=== PATIENT | female | born 1965 | race Asian ===

== ENCOUNTER 2024-04-01 19:11 | Emergency (ER) | payer MEDICAID, SELFPAY ==
[2024-04-01 19:12] VITALS: BMI 24.0
--- NOTE | 2024-04-01 19:15 | EKG_ITS ---
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
--- NOTE | 2024-04-01 19:29 | XR_ITS ---
Examination: PA lateral chest 2 views TECHNIQUE: Upright PA lateral chest 2 views Exam date and time: April 01, 2024 1949 hours INDICATIONS: Onset chest pain today. FINDINGS: Significant right middle lobe pneumonia No significant cardiac enlargement. Left lung clear IMPRESSION: Significant right middle lobe pneumonia
--- NOTE | 2024-04-01 19:29 | PD.EDRME ---
Rapid Medical Screening Exam E Arrival date/time: 04/01/24 19:11 58-year-old female with no known medical history presents to the emergency room with a chief complaint of 8 out of 10 sternal chest pain x 1 day. Patient states she was sent over by her primary care provider to rule out a heart attack. I have greeted and performed a focused initial assessment of this patient. A comprehensive ED assessment and evaluation of the patient, analysis of all test results, and completion of the medical decision making process will be conducted by additional ED providers. Chief Complaint: General Adult/Misc Complain Vital signs reviewed by provider: Yes
[2024-04-01 19:33] VITALS: BP 129/69; PULSE 86; RESP 18; TEMP 37.2; O2SAT 98
[2024-04-01 20:49] LABS: Basophils % (Auto) 1 % (0-2.5); Eosinophils # (Auto) 0.1 Thou/mm3 (0.0-0.5); Eosinophils % (Auto) 1 % (0-10); Hematocrit 28.4 % (36.0-46.0); Hemoglobin 9.3 g/dL (12.0-16.0); Immature Granulocytes % (Auto) 1 % (0-0); Immature Granulocytes Auto 0.05 Thou/mm3 (0.00-0.00); Lymphocytes # (Auto) 1.5 Thou/mm3 (1.0-4.8); Lymphocytes % (Auto) 19 % (10-50); Mean Corpuscular HGB Conc 32.7 g/dl (31.0-37.0); Mean Corpuscular Hemoglobin 24.6 pg (25.0-35.0); Mean Corpuscular Volume 75 fL (80-100); Monocytes # (Auto) 0.5 Thou/mm3 (0.0-0.8); Monocytes % (Auto) 7 % (0-12); Neutrophils # (Auto) 5.7 Thou/mm3 (1.8-7.7); Neutrophils % (Auto) 73 % (37-80); Nucleated Red Blood Cell % 0 /100 WBC (0); Platelet Count 307 Thou/mm3 (140-440); RDW Standard Deviation 40.9 fL (36.4-46.3); Red Blood Count 3.78 Miln/mm3 (4.00-5.20); White Blood Count 7.8 Thou/mm3 (3.6-11.0)
[2024-04-01 21:01] LABS: Partial Thromboplastin Time 26.2 Seconds (22.0-36.0); Prothrombin Time 11.4 Seconds (9.0-12.2)
[2024-04-01 21:02] LABS: B-Type Natriuretic Peptide 24 pg/mL (0-100)
[2024-04-01 21:30] LABS: Alanine Aminotransferase < 7 U/L (10-49); Albumin, Serum 4.1 gm/dL (3.5-5.0); Albumin/Globulin Ratio 1.1 (1.2-2.2); Alkaline Phosphatase 95 U/L (46-116); Anion Gap 11 (7-16); Aspartate Amino Transferase 10 U/L (0-34); BUN/Creatinine Ratio 16 Ratio (12-20); Bilirubin,Total 0.4 mg/dL (0.3-1.2); Blood Urea Nitrogen 19 mg/dL (9-23); Calcium 10.8 mg/dL (8.3-10.6); Calcium (Corrected) 10.8 mg/dL (8.5-10.1); Carbon Dioxide 25.5 mMol/L (20.0-31.0); Chloride 95 mMol/L (98-107); Creatinine (Component) 1.2 mg/dL (0.6-1.3); Estimated Creatinine Clearance 47.8 mL/min (>60); Globulin 3.8 gm/dL (2.3-3.5); Magnesium 1.2 mg/dL (1.6-2.6); Osmolality,Calculated 286 (275-295); Potassium 4.1 mMol/L (3.4-5.1); Sodium 131 mMol/L (136-145); Total Protein 7.9 gm/dL (5.7-8.2); Troponin I < 0.020 ng/mL (0.0-0.045); eGFR 52 See Note
[2024-04-01 21:36] LABS: Glucose 492 mg/dL (74-106)
[2024-04-01 22:09] LABS: Collection Type, Urine Clean Catch
[2024-04-01 22:42] VITALS: BP 116/77; PULSE 83; RESP 18; TEMP 37.2; O2SAT 100
[2024-04-01 22:44] LABS: Bilirubin,Urine Negative (Negative); Blood,Urine Negative (Negative); Clarity,Urine Clear (Clear/Hazy); Color,Urine Lt-Yellow (Lt Yel-Yel); Glucose, Urine 4+ (Negative); Ketones,Urine Negative (Negative); Leukocyte Esterase,Urine Negative (Negative); Nitrite,Urine Negative (Negative); PH,Urine 5.5 (5.0-7.0); Protein,Urine Trace (Neg - Trace); RBC,Urine 2 /hpf (0-3); Squamous Epithelial Cell,Urine 1 /hpf (0-5); Urobilinogen,Urine Negative mg/dL (0.0-1.0); WBC,Urine 5 /hpf (0-5)
[2024-04-01 22:52] LABS: Amphetamine/Methamp Scrn,U Negative (Negative); Barbiturate Screen,Urine Negative (Negative); Benzodiazepines Screen,Urine Negative (Negative); Benzoylecgonine Screen, Ur Negative (Negative); Fentanyl Screen,Urine Negative (Negative); Opiate Screen,Urine Negative (Negative); THC Screen,Urine Negative (Negative)
[2024-04-02 00:32] VITALS: BP 132/71; PULSE 82; RESP 18; TEMP 36.8; O2SAT 100
--- NOTE | 2024-04-02 00:51 | EDNOTE_ITS ---
ED General RME/HPI General Chief complaint: Flu Like Symptoms Stated complaint: ABNORMAL EKG /COUGH /COLD Time Seen by Provider: 04/01/24 21:01 Arrival date/time: 04/01/24 19:11 Limitations: language barrier (speaks Estonian) RME / HPI RME / HPI narrative: 04/01/24 19:11 58-year-old female with no known medical history presents to the emergency room with a chief complaint of 8 out of 10 sternal chest pain x 1 day. Patient states she was sent over by her primary care provider to rule out a heart attack. I have greeted and performed a focused initial assessment of this patient. A comprehensive ED assessment and evaluation of the patient, analysis of all test results, and completion of the medical decision making process will be conducted by additional ED providers. ------ Dr. [facility]'s Main ED Evaluation: 58yo female with a history of DM, HTN, cholecystectom accompanied by her daughter presents to the ED for multiple complaints. Patient's daughter states the patient has had a sore throat for the last few weeks, tested positive for Strep at her PCP's office last week, and was given a one time dose of Penicillin. Daughter states the patient has been increasingly weak over the last one week and has been having to use her walker. Daughter states the patient has also been c/o nausea, sharp mid chest pain that is nonradiating, and weight loss over the last one month. Denies any cough, vomiting, abdominal pain, shortness of breath, bloody stools or any other associated symptoms. No known allergies. Related Data Previous Rx's ?Medication ?Instructions ?Recorded amoxicillin 875 mg-potassium 1 tab PO BID #20 tabs clavulanate 125 mg tablet benzonatate 100 mg capsule 100 mg PO TID PRN cough #10 caps 04/02/24 Allergies Allergy/AdvReac Type Severity Reaction Status Date / Time No Known Allergies Allergy Verified 04/01/24 19:14 Review of Systems Review of Systems Systems Reviewed: All systems reviewed, normal except as documented Past Medical History Social History SMOKING STATUS: Never smoker ED Exam General Limitations: Present language barrier (speaks Estonian) General appearance: Present alert, in no apparent distress and other (frail, muscle wasting) Head Head exam: Present atraumatic Eye Eye exam: Present normal appearance, PERRL and EOMI ENT ENT exam: Present normal oropharynx, mucous membranes moist and other (no trismus; tonsils are red, no exudate) Neck Neck exam: Present normal inspection, full ROM and trachea midline Chest Chest inspection: Present normal inspection and symmetric chest wall rise Respiratory Respiratory exam: Present normal lung sounds bilaterally; Absent wheezes Cardiovascular Cardiovascular exam: Present regular rate, normal rhythm and normal heart sounds Abdominal Exam Abdominal exam: Present soft and normal bowel sounds Extremities Exam Extremities exam: Present full ROM and other (1+ pitting edema at the bilateral ankles) Back Exam Back exam: Present normal inspection and full ROM Neurological Exam Neurological exam: Present alert, oriented X3 and CN II-XII intact Psychiatric Psychiatric exam: Present normal affect and normal mood Skin Skin exam: Present warm, dry, intact and other (mildly pale, normal cap refill) Course Course Course Narrative: CXR is ordered for determining the etiology of chest pain. 0505: Patient's ambulatory pulse ox is 96% on room air. Patient is stable to be discharged home. Quality Measures none Orders Category Date Time Status Bedside Blood Glucose NOW Care 04/02/24 00:[address] Screening NOW Care 04/02/24 01:[address] Screening NOW Care 04/02/24 01:01 Completed EKG (ED ONLY) *Do not use* NOW Care 04/01/24 19:15 Completed Insert IV NOW Care 04/02/24 01:[address] abdomen pelvis w con Stat Exams 04/02/24 01:[address] angio chest Stat Exams 04/02/24 01:01 Completed EKG (ED Only) Stat Exams 04/01/24 19:15 Draft XR chest 2V Stat Exams 04/01/24 19:29 Completed B-Type Natriuretic Peptide Stat Lab 04/01/24 20:15 Completed CBC Stat Lab 04/01/24 20:15 Completed Comprehensive Metabolic Panel Stat Lab 04/01/24 20:15 Completed Drug Screen,Urine Stat Lab 04/01/24 21:51 Completed Magnesium Stat Lab 04/01/24 20:15 Completed Partial Thromboplastin Time Stat Lab 04/01/24 20:15 Completed Prothrombin Time with INR Stat Lab 04/01/24 20:15 Completed Troponin I Stat Lab 04/01/24 20:15 Completed Urinalysis Stat Lab 04/01/24 21:51 Completed Albuterol/Ipratr Rt Soila [Duoneb Rt Soila] Med 04/02/24 01:00 Discontinued 3 ml INH X1 ONE Azithromycin Inj [Zithromax Inj] 500 mg Med 04/02/24 01:00 Discontinued Sodium Chloride 0.9% 250 ml [Ns] 250 ml IV QDAY Azithromycin Inj [Zithromax Inj] 500 mg Med 04/02/24 01:15 Discontinued Sodium Chloride 0.9% 250 ml [Ns] 250 ml IV X1 Benzonatate [Tessalon] Med 04/02/24 01:00 Discontinued 100 mg PO X1 ONE Sodium Chloride 0.9% 1000 ml [Ns] 1,000 ml Med 04/02/24 01:00 Discontinued IV 999 mls/hr cefTRIAXone [Rocephin] 1,000 mg Med 04/02/24 00:59 Discontinued Sodium Chloride 0.9% [Ns] 50 ml IV X1 Vital Signs Vital signs: Vital Signs Temperature 99 F 04/01/24 19:33 Pulse Rate 86 04/01/24 19:33 Respiratory Rate 18 04/01/24 19:33 Blood Pressure 129/69 04/01/24 19:33 Pulse Oximetry (%) 98 04/01/24 19:33 Oxygen Delivery Method Room Air 04/01/24 19:33 Pulse ox is 98% on room air, which is normal according to my interpretation. [facility] Patient data External records reviewed:: [facility] previous records (Per chart review, patient has no previous ED visits or admissions to this facility.) Clinical information provided by:: patient and family Social determinants that could affect healthcare access:: none Patient has the following chronic illnesses:: DM, HTN How is presenting disease/condition affected by chronic disease/condition?: u neffected by Evaluation data The following diagnostics were reviewed and interpreted by me:: lab results, radiology exam(s) and EKG tracing(s) Lab and/or radiology exams considered but not ordered:: none Interpretation Summary: WBC count is normal, HnH is 9.3/28.4, Sodium is slightly low at 131, Glucose is 492, Anion Gap is normal, troponin is normal, BNP is normal, UA is unremarkable, UDS is negative, according to my interpretation. EKG done at 1932, NSR, rate of 93, first degree AV block, QTc: 375, no ST elevations or depressions, no STEMI, according to my interpretation. ----- [facility] Report Signed Patient: CORETTA YANES Med. Record#: [id number] Birthdate: 1965 Age/Sex: 58 / F Location: [facility] Attending Dr: Ordering Physician: Bladimir Lin Date of Service: 04/01/24 Procedure(s): XR chest 2V Accession Number(s): [id number] cc: Bladimir Lin; Bi Haider MD; Temporary Provider,ED ~ Examination: PA lateral chest 2 views TECHNIQUE: Upright PA lateral chest 2 views Exam date and time: April 01, 2024 1949 hours INDICATIONS: Onset chest pain today. FINDINGS: Significant right middle lobe pneumonia No significant cardiac enlargement. Left lung clear IMPRESSION: Significant right middle lobe pneumonia Dictated By: Bi Haider MD Signed By: <Electronically signed by Bi Haider MD in OV> 04/01/242114 ----- [facility] Preliminary Report Draft Patient: FARZANA HITCHCOCK Med. Record#: [id number] Birthdate: 1965 Age/Sex: 58 / F Location: [facility] Attending Dr: Ordering Physician: Date of Service: Procedure(s): Accession Number(s): cc: ~ CT scan of the abdomen and pelvis with intravenous contrast (axial sections with sagittal and coronal reformats) April 02, 2024 0236 hours Clinical History: 58-year-old chest pain, weight loss, Comparison: None. Findings: Please, see separate report for description of the chest findings. The gallbladder, pancreas, kidneys and adrenals are unremarkable. Status post cholecystectomy. Multiple (more than 20) hypodense splenic lesions, the largest measuring 2.1 cm. Splenomegaly with anteroposterior diameter of 15.7 cm. No evidence of bowel obstruction. The appendix is within normal limits. There is no mesenteric or retroperitoneal adenopathy. The urinary bladder is unremarkable. There is no free fluid or free air. The osseous structures are unremarkable. The uterus and ovaries are within normal limits. Impression: No evidence of acute intra-abdominal or pelvic pathology. Indeterminate hypodense splenic lesions, consider splenic abscesses in the differential diagnosis. Splenomegaly. Report Electronically Signed By: Adarsh Munoz 04/02/2024 4:33:48 AM [EST] [facility] Preliminary Report Draft Patient: FARZANA HITCHCOCK. Record#: [id number] Birthdate: 1965 Age/Sex: 58 / F Location: [facility] Attending Dr: Ordering Physician: Date of Service: Procedure(s): Accession Number(s): cc: ~ CT angiogram of the chest with intravenous contrast (axial sections with sagittal and coronal reformats) April 02, 2024 0236 hours Clinical History: Pneumonia, weight loss Technique:Helical axial sections with sagittal and coronal reformats of the chest were obtained with intravenous contrast. Iterative reconstruction technique was employed to reduce patient radiation exposure. 3D/MIP reconstructed images were also provided. Comparison: None available at the time of this report. Findings: There is no filling defect within the pulmonary artery divisions to suggest pulmonary thromboembolism. The mediastinum demonstrates no evidence of mass or lymphadenopathy. The thoracic aorta is unremarkable. There is a small pericardial effusion. No pneumothorax. No pleural effusions. Consolidations in the right middle and bilateral lower lobes. The osseous structures are unremarkable. Please, see separate report for description of the abdominal findings. Severe left atrial dilation. Heterogenous right thyroid nodule measuring 2.3 cm. Impression: No CT evidence of pulmonary thromboembolism. Severely dilated left atrium. Multifocal pneumonia. Right thyroid nodule, correlation with thyroid function tests and ultrasound is recommended. Small pericardial effusion. Report Electronically Signed By: Adarsh Muonz 04/02/2024 4:35:46 AM [EST] Medications Medications considered but not ordered:: none Medication administrations:: Medication Administration History Discontinued Medications Albuterol/Ipratropium (Albuterol/Ipratropium (Duoneb) Rt Soila 3 Ml Nebu) 3 ml INH X1 ONE Stop: 04/02/24 01:01 Last Admin: 04/02/24 01:33 Dose: 3 ml Documented By: NE Benzonatate (Benzonatate 100 Mg Capsule) 100 mg PO X1 ONE; Protocol Stop: 04/02/24 01:01 Last Admin: 04/02/24 01:28 Dose: 100 mg Documented By: AM Ceftriaxone Sodium 1,000 mg/ (Sodium Chloride) 50 mls @ 100 mls/hr IV X1 ONE Stop: 04/02/24 01:28 Last Infusion: 04/02/24 02:00 Dose: Infused Documented By: Admin: 04/02/24 01:30 Dose: 100 mls/hr Documented By: AM Azithromycin 500 mg/ Sodium (Chloride) 250 mls @ 250 mls/hr IV QDAY JAYRO Stop: 04/09/24 00:59 Sodium Chloride (Ns) 1,000 mls @ 999 mls/hr IV .Q1H1M ONE Stop: 04/02/24 02:00 Last Infusion: 04/02/24 03:30 Dose: Infused Documented By: Admin: 04/02/24 01:29 Dose: 999 mls/hr Documented By: AM Azithromycin 500 mg/ Sodium (Chloride) 250 mls @ 250 mls/hr IV X1 ONE Stop: 04/02/24 02:14 Last Infusion: 04/02/24 02:43 Dose: Infused Documented By: Admin: 04/02/24 01:43 Dose: 250 mls/hr Documented By: AM see above Consultations Consultation(s) initiated? (list below): No Diagnosis Differential Diagnosis ED Complaint MDM: pneumonia, PE, sepsis, pharyngitis, viral syndrome, dehydration Most likely diagnosis given after review of the tests above:: see below Admission Indicated Admission indicated?: not indicated Explain why admission is indicated or not indicated:: Admission criteria not met. Patient's ambulatory pulse ox is 96% on room air and feels significantly better. Patient is stable to be discharged. Admission Request Was there a request for admission?: No Disposition Plan Disposition Plan: Discharge Discharge Attestation Discharge Attestation: The patient and all family members were given an opportunity to ask questions and understood the discharge instructions. Discharge instructions specifically effects, indications for sooner follow up or return to the emergency department, and the expected course of current diagnosis. Patient condition: Stable Medical Decision Making Differential Diagnosis Differential Diagnosis: pneumonia, PE, sepsis, pharyngitis, viral syndrome, dehydration Lab Data 04/01/24 20:15 04/01/24 20:15 Labs: Lab Results 04/01/24 04/01/24 Range/Units 20:15 21:51 WBC 7.8 (3.6-11.0) Thou/mm3 RBC 3.78 L (4.00-5.20) Miln/mm3 Hgb 9.3 L (12.0-16.0) g/dL Hct 28.4 L (36.0-46.0) % MCV 75 L (80-100) fL MCH 24.6 L (25.0-35.0) pg MCHC 32.7 (31.0-37.0) g/dl RDW Std Deviation 40.9 (36.4-46.3) fL Plt Count 307 (140-440) Thou/mm3 Neut % (Auto) 73 (37-80) % Lymph % (Auto) 19 (10-50) % [place] % (Auto) 7 (0-12) % Eos % (Auto) 1 (0-10) % Baso % (Auto) 1 (0-2.5) % Neut # (Auto) 5.7 (1.8-7.7) Thou/mm3 Lymph # (Auto) 1.5 (1.0-4.8) Thou/mm3 [place] # (Auto) 0.5 (0.0-0.8) Thou/mm3 Eos # (Auto) 0.1 (0.0-0.5) Thou/mm3 Baso # (Auto) 0.0 (0.0-0.2) Thou/mm3 Immature Gran # (Auto) 0.05 H (0.00-0.00) Thou/mm3 Absolute Nucleated RBC 0.00 (0.00-0.00) Thou/mm3 Immature Gran % 1 H (0-0) % Nucleated RBC % 0 (0) /100 WBC PT 11.4 (9.0-12.2) Seconds INR 1.0 (0.9-1.3) APTT 26.2 (22.0-36.0) Seconds Sodium 131 L (136-145) mMol/L Potassium 4.1 (3.4-5.1) mMol/L Chloride 95 L (98-107) mMol/L Carbon Dioxide 25.5 (20.0-31.0) mMol/L Anion Gap 11 (7-16) BUN 19 (9-23) mg/dL Creatinine 1.2 (0.6-1.3) mg/dL Estim Creat Clear Calc 47.8 L (>60) mL/min eGFR 52 L (60 - ) See Note BUN/Creatinine Ratio 16 (12-20) Ratio Glucose 492 H* (74-106) mg/dL Calculated Osmolality 286 (275-295) Calcium 10.8 H (8.3-10.6) mg/dL Corrected Calcium 10.8 H (8.5-10.1) mg/dL Magnesium 1.2 L (1.6-2.6) mg/dL Total Bilirubin 0.4 (0.3-1.2) mg/dL AST 10 (0-34) U/L ALT < 7 L (10-49) U/L Alkaline Phosphatase 95 (46-116) U/L Troponin I < 0.020 (0.0-0.045) ng/mL B-Natriuretic Peptide 24 (0-100) pg/mL Total Protein 7.9 (5.7-8.2) gm/dL Albumin 4.1 (3.5-5.0) gm/dL Globulin 3.8 H (2.3-3.5) gm/dL Albumin/Globulin Ratio 1.1 L (1.2-2.2) Ur Collection Type Clean Catch Urine Color Lt-Yellow (Lt Yel-Yel) Urine Clarity Clear (Clear/Hazy) Urine pH 5.5 (5.0-7.0) Ur Specific [place] 1.030 (1.001-1.035) Urine Protein Trace (Neg - Trace) Urine Glucose (UA) 4+ A (Negative) Urine Ketones Negative (Negative) Urine Blood Negative (Negative) Urine Nitrite Negative (Negative) Urine Bilirubin Negative (Negative) Urine Urobilinogen (Auto) Negative (0.0-1.0) mg/dL Ur Leukocyte Esterase Negative (Negative) Urine RBC 2 (0-3) /hpf Urine WBC 5 (0-5) /hpf Ur Squamous Epith Cells 1 (0-5) /hpf Urine Bacteria None (None) Urine Opiates Screen Negative (Negative) Urine Fentanyl Screen Negative (Negative) Ur Barbiturates Screen Negative (Negative) U Amphetamin/Meth Scrn Negative (Negative) U Benzodiazepines Scrn Negative (Negative) U Cocaine Metab Screen Negative (Negative) U Marijuana (THC) Screen Negative (Negative) Discharge Plan Plan Patient Disposition: HOME (Self Care) Patient condition on transfer: Stable Prescriptions/Referrals Prescriptions/Med Rec: New benzonatate 100 mg capsule 100 mg PO TID PRN (Reason: cough) Qty: 10 0RF amoxicillin-pot clavulanate 875-125 mg tablet 1 tab PO BID Qty: 20 0RF Referrals: Emperatriz Murillo MD [Primary Care Provider] - In 1 week Problem List Clinical Impression: Community acquired pneumonia Patient/Caregiver Discharge Instructions Education Materials: ED Pneumonia (Adult) Additional Instructions: 1. Please take the antibiotics as prescribed for your pneumonia. 2. Stay hydrated with Pedialyte and Gatorade. 3. Please take the cough medicine if needed. You can use the inhaler as well for the next 2 to 3 days. 4. If you should feel worse, have fever, cannot eat, please return to the emergency department and do not stay home sick because at that point you may need to be admitted for IV antibiotics and observation Print Language: Chinese Stand Alone Forms: [facility] Award Info., Patient Portal Info Letter
[2024-04-02 01:01] VITALS: BP 135/87; PULSE 90; RESP 18; TEMP 36.6; O2SAT 98
--- NOTE | 2024-04-02 01:01 | XR_ITS ---
Examination: CTA chest with intravenous contrast 2-D reconstructions 3-D reconstructions, vascular Date and time of exam: April 02, 2024 0236 hours INDICATIONS: Chest pain and coughing shortness of breath today CTDI: vol (mGy) 6.88 DLP: (mGycm) 244 Technique: Multiple axial sections of the thorax have been obtained. 3 mm slice thickness, from below the hemidiaphragms to above the apices of the lungs. Mediastinal and lung density settings have been obtained. 2-D sagittal and coronal reconstructions. 3-D angiographic renderings, 3-D volume renderings, 3D post processing, vascular maximum intensity projections obtained. Contrast administered is 100 cc Isovue-370. Intravenous. Low dose protocols were performed. One or more of the following dose reduction techniques were used; automated exposure control, adjustment of the mA and/or KV according to patient size, use of iterative reconstruction technique. Findings: 25 mm right thyroid nodule with a large right thyroid lobe No thoracic aortic aneurysmal dilatation No pulmonary artery filling defects Soft areas of parenchymal disease in both lungs especially lung bases Liver irregular in contour Prominent splenomegaly at least 16 cm No hydronephrosis IMPRESSION: Negative for pulmonary artery emboli Bilateral pneumonia, predominantly at the lung bases
--- NOTE | 2024-04-02 01:01 | XR_ITS ---
Examination: CT abdomen with intravenous contrast CT pelvis with intravenous contrast 2-D coronal reconstructions 2-D sagittal reconstructions Date and time of exam:April 02, 2024 at 0236 hours INDICATIONS: Abdominal pain chest pain today. CTDI: vol (mGy) 5.68 DLP: (mGycm) 330 Technique: Multiple axial sections of the abdomen and pelvis have been obtained. 64 slice high-resolution scanner used. 3 mm axial sections have been obtained, post intravenous injection 100 cc Isovue-370 2-D sagittal, coronal reconstructions obtained. Low dose protocols were performed. One or more of the following dose reduction techniques were used; automated exposure control, adjustment of the mA and/or KV according to patient size, use of iterative reconstruction technique. Findings: Liver is irregular in contour and enlarged 19 cm Marked splenomegaly 16 cm with multiple lesions in the spleen Absent gallbladder No pancreatic mass No hydronephrosis Aorta normal size. No bowel obstruction Normal appendix No diverticulitis Atrophic uterus Urinary bladder is intact Moderate osteopenia IMPRESSION: Primary hepatocellular disease versus cirrhosis Marked splenomegaly with multiple splenic lesions, differential would include lymphoma, Hodgkin's disease, splenic abscess is not excluded
[2024-04-02] MEDS: BENZONATATE 100 MG CAPSULE PO (01:28)
[2024-04-02] MEDS: SODIUM CHLORIDE 0.9% 1000 ML 1,000 ML 999 ML IV (01:29)
[2024-04-02 01:33] VITALS: PULSE 85; RESP 20; O2SAT 100
[2024-04-02] MEDS: ALBUTEROL/IPRATROPIUM (Duoneb) RT SOL 3 ML NEBU INH (01:33)
[2024-04-02] MEDS: AZITHROMYCIN INJ 500 MG in SODIUM CHLORIDE 0.9% 250 ML 250 ML 250 MG IV (01:43)
[2024-04-02 03:37] VITALS: BP 128/64; PULSE 88; RESP 18; TEMP 36.4; O2SAT 96
--- NOTE | 2024-04-02 04:34 | PRELIM_ITS ---
CT scan of the abdomen and pelvis with intravenous contrast (axial sections with sagittal and coronal reformats) April 02, 2024 0236 hoursClinical History: 58-year-old chest pain, weight loss,Comparis on: None.Findings:Please, see separate report for description of the chest findings.The gallbladder, pancreas, kidneys and adrenals are unremarkable.Status post cholecystectomy.Multiple (more than 20) h ypodense splenic lesions, the largest measuring 2.1 cm.Splenomegaly with anteroposterior diameter of 15.7 cm.No evidence of bowel obstruction. The appendix is within normal limits.There is no mesenteric or retroperitoneal adenopathy.The urinary bladder is unremarkable. There is no free fluid or free ai r.The osseous structures are unremarkable.The uterus and ovaries are within normal limits.Impression: No evidence of acute intra-abdominal or pelvic pathology.Indeterminate hypodense splenic lesions, con python consultant splenic abscesses in the differential diagnosis.Splenomegaly. Report Electronically Signed By: Adarsh Munoz 04/02/2024 4:33:48 AM [EST]
--- NOTE | 2024-04-02 04:36 | PRELIM_ITS ---
CT angiogram of the chest with intravenous contrast (axial sections with sagittal and coronal reforma ts) April 02, 2024 0236 hours Clinical History: Pneumonia, weight loss Technique:Helical axial sect ions with sagittal and coronal reformats of the chest were obtained with intravenous contrast. Iterat jean paul reconstruction technique was employed to reduce patient radiation exposure. 3D/MIP reconstructed images were also provided. Comparison: None available at the time of this report.Findings:There is no filling defect within the pulmonary artery divisions to suggest pulmonary thromboembolism. The media stinum demonstrates no evidence of mass or lymphadenopathy. The thoracic aorta is unremarkable. There is a small pericardial effusion.No pneumothorax.No pleural effusions.Consolidations in the right mid dle and bilateral lower lobes.The osseous structures are unremarkable.Please, see separate report for description of the abdominal findings.Severe left atrial dilation.Heterogenous right thyroid nodule measuring 2.3 cm.Impression:No CT evidence of pulmonary thromboembolism.Severely dilated left atrium. Multifocal pneumonia.Right thyroid nodule, correlation with thyroid function tests and ultrasound is recommended.Small pericardial effusion. Report Electronically Signed By: Adarsh Munoz 04/02/2024 4 :35:46 AM [EST]
[2024-04-02 05:00] VITALS: BP 129/65; PULSE 87; RESP 16; TEMP 36.9; O2SAT 98
== END 2024-04-02 05:33 | disposition home or self-care (01) ==
PROVIDERS: Nurse Practitioner Family; Emergency Provider Emergency Medicine; PCP Family Medicine
DX: J18.9 Pneumonia, unspecified organism (principal); E11.9 Type 2 diabetes mellitus without complications; I10 Essential (primary) hypertension
CPT/HCPCS: 36415; 71046; 71275; 74177; 80053; 80307; 81001; 83735; 83880; 84484; 85025; 85610; 85730; 93005; 94640; 96361; 96365; 99285; A4649; A9270; J0456; J0696; J7030; J7050; Q9967

== ENCOUNTER 2024-07-09 15:54 | Inpatient (IN) | payer MEDICAID, SELFPAY ==
[2024-07-09 16:27] VITALS: BP 152/80; PULSE 110; RESP 18; TEMP 36.5; O2SAT 100; BMI 22.7
--- NOTE | 2024-07-09 16:33 | EDRME_ITS ---
Rapid Medical Screening Exam RME Arrival date/time: 07/09/24 15:54 This is a 58-year-old female that complains of abdominal pain, diarrhea and nausea vomiting. Patient states that symptoms started a couple days ago. Patient has a history of diabetes and high blood pressure patient was sent by her primary provider to get IV fluids in the emergency room. I have greeted and performed a focused initial assessment of this patient. Initial appropriate labs ordered at this time. A comprehensive ED assessment an d evaluation of the patient and analysis of all test and completion of medical decision making process will be conducted by additional ED provider. Chief Complaint: Nausea/Vomiting/Diarrhea Time Seen by Provider: 07/09/24 16:01 Vital signs: Vital Signs Temperature 97.7 F 07/09/24 16:27 Pulse Rate 110 H 07/09/24 16:27 Respiratory Rate 18 07/09/24 16:27 Blood Pressure 152/80 H 07/09/24 16:27 Pulse Oximetry (%) 100 07/09/24 16:27 Oxygen Delivery Method Room Air 07/09/24 16:27
[2024-07-09 17:12] LABS: Basophils # (Auto) 0.1 Thou/mm3 (0.0-0.2); Basophils % (Auto) 1 % (0-2.5); Eosinophils # (Auto) 0.2 Thou/mm3 (0.0-0.5); Eosinophils % (Auto) 3 % (0-10); Hematocrit 30.1 % (36.0-46.0); Hemoglobin 9.8 g/dL (12.0-16.0); Immature Granulocytes % (Auto) 0 % (0-0); Immature Granulocytes Auto 0.03 Thou/mm3 (0.00-0.00); Lymphocytes # (Auto) 1.6 Thou/mm3 (1.0-4.8); Lymphocytes % (Auto) 21 % (10-50); Mean Corpuscular HGB Conc 32.6 g/dl (31.0-37.0); Mean Corpuscular Hemoglobin 25.1 pg (25.0-35.0); Mean Corpuscular Volume 77 fL (80-100); Monocytes # (Auto) 0.5 Thou/mm3 (0.0-0.8); Monocytes % (Auto) 7 % (0-12); Neutrophils % (Auto) 68 % (37-80); Nucleated Red Blood Cell % 0 /100 WBC (0); Platelet Count 269 Thou/mm3 (140-440); RDW Standard Deviation 40.5 fL (36.4-46.3); White Blood Count 7.4 Thou/mm3 (3.6-11.0)
[2024-07-09 17:23] LABS: Collection Type, Urine Voided
[2024-07-09 17:38] LABS: Bacteria,Urine Rare; Bilirubin,Urine Negative (Negative); Blood,Urine 1+ (Negative); Clarity,Urine Turbid (Clear/Hazy); Color,Urine Yellow (Lt Yel-Yel); Culture Indicated,Urine Contaminated; Glucose, Urine 4+ (Negative); Ketones,Urine Negative (Negative); Leukocyte Esterase,Urine Positive (Negative); Nitrite,Urine Negative (Negative); PH,Urine 5.5 (5.0-7.0); Protein,Urine 1+ (Neg - Trace); RBC,Urine 9 /hpf (0-3); Specific Gravity,Urine 1.012 (1.001-1.035); Squamous Epithelial Cell,Urine 18 /hpf (0-5); Transitional Epi Cells,Urine 6 /hpf (0-5); Urobilinogen,Urine Negative mg/dL (0.0-1.0); WBC,Urine 516 /hpf (0-5)
[2024-07-09 17:38] LABS: Alanine Aminotransferase < 7 U/L (10-49); Albumin, Serum 4.6 gm/dL (3.5-5.0); Albumin/Globulin Ratio 1.1 (1.2-2.2); Alkaline Phosphatase 80 U/L (46-116); Anion Gap 14 (7-16); Aspartate Amino Transferase 13 U/L (0-34); BUN/Creatinine Ratio 16 Ratio (12-20); Bilirubin,Total 0.6 mg/dL (0.3-1.2); Blood Urea Nitrogen 64 mg/dL (9-23); Calcium 12.9 mg/dL (8.3-10.6); Calcium (Corrected) 12.9 mg/dL (8.5-10.1); Carbon Dioxide 26.2 mMol/L (20.0-31.0); Chloride 98 mMol/L (98-107); Creatinine (Component) 3.9 mg/dL (0.6-1.3); Estimated Creatinine Clearance 12.4 mL/min (>60); Globulin 4.1 gm/dL (2.3-3.5); Glucose 127 mg/dL (74-106); Lipase 34 U/L (12-53); Osmolality,Calculated 295 (275-295); Potassium 3.7 mMol/L (3.4-5.1); Sodium 138 mMol/L (136-145); Total Protein 8.7 gm/dL (5.7-8.2); eGFR 13 See Note
--- NOTE | 2024-07-09 19:32 | PD.EDNV ---
Nausea/Vomit./Diarrhea-RME/HPI General Chief complaint: Nausea/Vomiting/Diarrhea Stated complaint: VOMITNG INTERMITT [id number] Time Seen by Provider: 07/09/24 16:01 Arrival date/time: 07/09/24 15:54 RME / HPI RME / HPI Narrative: 07/09/24 15:54 This is a 58-year-old female that complains of abdominal pain, diarrhea and nausea vomiting. Patient states that symptoms started a couple days ago. Patient has a history of diabetes and high blood pressure patient was sent by her primary provider to get IV fluids in the emergency room. I have greeted and performed a focused initial assessment of this patient. Initial appropriate labs ordered at this time. A comprehensive ED assessment and evaluation of the patient and analysis of all test and completion of medical decision making process will be conducted by additional ED provider. DR. RAYMOND MAIN ED EVALUATION: 58 y/o female with Hx of presents to ED c/o . Patient denies xx or any other associated symptoms or aggravating factors. No modifying factors, no radiation, no migration. No pain reported overall. Related Data Previous Rx's ?Medication ?Instructions ?Recorded amoxicillin 875 mg-potassium 1 tab PO BID #20 tabs 04/02/24 clavulanate 125 mg tablet benzonatate 100 mg capsule 100 mg PO TID PRN cough #10 caps 04/02/24 Allergies Allergy/AdvReac Type Severity Reaction Status Date / Time No Known Allergies Allergy Verified 04/01/24 19:14 Review of Systems Review of Systems Systems Reviewed: All systems reviewed, normal except as documented Narrative Review of Systems: Gen: No fever, no chills, no weight loss EYES: No discharge, no visual changes, no pain HEENT: No ear pain, no congestion, no sore throat PULM: No shortness of breath, no cough, no congestion CV: No chest pain, no dyspnea on exertion, no palpitations GI: No nausea, no vomiting, no diarrhea, no pain, no constipation : No frequency, no urgency, no dysuria Musc/skel: No joint pain, no back pain Skin: No rash. Psyc: No hallucinations, no depression Heme/Lymph: No easy bleeding or bruising tendencies Neuro: No weakness, no headache ED Exam Narrative Physical exam: GENERAL APPEARANCE: alert and oriented x 4, well-developed, well-nourished, no acute distress VITALS: All vitals were reviewed and the pulse ox is % on room air, which is normal according to my interpretation. HEENT: Normocephalic, atraumatic; pupils equal, round, reactive to light; EOMI; mucous membranes pink, moist; oropharynx clear NECK: Supple LUNGS: CTABL; no wheezes, no rales, no rhonchi HEART: Regular rate, regular rhythm; normal S1, S2; no murmurs ABDOMEN: non distended; normal BS; soft, no tenderness, no guarding, no rebound; no masses, no organomegaly, no hernia BACK: no CVA tenderness EXTREMITIES: atraumatic; no edema NEUROLOGIC: awake; alert and oriented x4; cranial nerves II-XII grossly intact; no focal sensory or motor deficits PSYCHIATRIC: appropriate mood and affect SKIN: warm, dry, normal color; no rashes Course Orders Category Date Time Status CBC Stat Lab 07/09/24 16:49 Completed Comprehensive Metabolic Panel Stat Lab 07/09/24 16:49 Completed Lipase Stat Lab 07/09/24 16:49 Completed Urinalysis, C/S if Indicated Stat Lab 07/09/24 17:08 Completed Vital Signs Vital signs: Vital Signs Temperature 97.7 F 07/09/24 16:27 Pulse Rate 110 H 07/09/24 16:27 Respiratory Rate 18 07/09/24 16:27 Blood Pressure 152/80 H 07/09/24 16:27 Pulse Oximetry (%) 100 07/09/24 16:27 Oxygen Delivery Method Room Air 07/09/24 16:27 Nausea/Vomiting/Diarrhea MDM Narrative MDM Narrative:: Scribe Attestation: Isamar Loyd am scribing for and in the presence of Dr. Raymond. Provider Notation: Although this document has been carefully reviewed, there may still be some phonetic and other typographical errors. These errors are purely grammatical due to imperfections in the software program and should not be construed in any way to compromise the substance of the patient's medical care during this visit. Patient data External records reviewed:: [facility] previous records (Prior ED records reviewed from 04/02/24. Patient was seen for Community acquired pneumonia.) Social determinants that could affect healthcare access:: none Evaluation data Lab and/or radiology exams considered but not ordered:: None. Medications / Prescriptions Medications / Prescriptions considered but not ordered:: None. Medication administrations:: See above if any. Discharge Plan Prescriptions/Referrals Prescriptions/Med Rec: No Action benzonatate 100 mg capsule 100 mg PO TID PRN (Reason: cough) Qty: 10 0RF amoxicillin-pot clavulanate 875-125 mg tablet 1 tab PO BID Qty: 20 0RF Referrals: Hernandez Marquez PA-C [Primary Care Provider] - In 1 week Patient/Caregiver Discharge Instructions Print Language: Liberian
[2024-07-09 19:41] VITALS: BP 167/73; PULSE 100; RESP 24; TEMP 36.8; O2SAT 100
--- NOTE | 2024-07-09 20:09 | EDNOTE_ITS ---
ED General RME/HPI General Chief complaint: Nausea/Vomiting/Diarrhea Stated complaint: VOMITNG INTERMITT [id number] Time Seen by Provider: 07/09/24 16:01 Arrival date/time: 07/09/24 15:54 RME / HPI RME / HPI narrative: This patient is a 58-year-old female with past medical history of hypertension, type 2 diabetes on insulin, history of thyroid nodules presented to the ED on 07/09/2024 with chief complaint of 3-week history of abdominal pain associated with nausea vomiting and loose stools. Patient's sister is present at the bedside as well. They went to the [facility] today and were sent to the ER due to severe dehydration. Patient reported that her symptoms started 3 weeks ago when she started having epigastric discomfort rated the pain as 7 on 10 not related with the food associated with nausea and vomiting relieved only with Tylenol and usually at day time. She also had loose stools 2 days ago. Vomiting was present at initial time when the pain started 3 weeks ago . She denied noticing any blood in vomit or stool. She was initially on Victoza and lost 50 pounds in 1 year time spent and was switched to Trulicity by her primary care doctor. She also reported to heart racing of heart and lightheadedness. She has been not drinking enough water and reported that has been taking Aldvil 3 tablets 3 times a day for back pain. She is making a little urine due to decrease p.o. intake. Denies any cough, fever or chills, shortness of breath or chest pain. Examination was significant for dull pink-colored papule/plaque on her left arm and on the back also on the upper chest initially they were itchy 3 weeks ago likely eczema vs necrbiosis. Patient says she reported that she gave her losartan prior to coming to the ED. Examination also significant for dry mucous membrane and no lower extremity swelling noticed. Vitals revealed elevated blood pressure 160/80, pulse 110 mild tachycardia afebrile and saturating well on room air. Labs were significant for normocytic anemia hemoglobin 9.8 stable white count. Electrolyte panel unremarkable. Bicarb 26. Kidney functions further significant for severe SANTOS with BUN 64 creatinine 3.9 GFR 30 with baseline creatinine 1.2 from 04/01/2024. Total pro teins 8.7 and globulins 4.1 were elevated. Elevated corrected calcium 12.9. Liver enzymes unremarkable. Urinalysis was turbid with pyuria, bacteria, squamous epithelial cells and positive leukocyte esterase.EKG showed sinus rhythm with Short QT intervals. QTc 402.No acute ST-T changes. Per chart review from March 2024 ,Previous CT imaging showed 25 mm right thyroid nodule with large thyroid lobe. Previous CT abdomen pelvis showed irregular liver with marked splenomegaly 16 cm with multiple lesions. PMH: Hypertension, type 2 diabetes PSH: None Allergies: None SH: Denies drinking alcohol, denies smoking or illicit drug use. Home medications: Losartan hydrochlorothiazide 100?25, metoprolol tartrate 100 mg twice daily, Trulicity, amlodipine 5 mg We ordered bolus of fluids of LR 1 L x 1, maintenance fluids at 100 cc/h, urine electrolytes, urine calcium, PTH, strict VERNON's with Montes De Oca catheter insertion,FOBT and hospitalist team was called for admission for severe SANTOS likely due to ATN due to dehydration versus NSAIDs, hypercalcemia, hypertensive urgency. Urinalysis was repeated due to contaminated urine initially. Hospitalist team agreed to admit the patient for severe SANTOS. She would need further workup if her kidney functions did not improve with fluids likely parathyroid adenoma,Multiple myeloma and possible malignancy or advanced diabetes affecting kidneys.Patient was informed to stop taking Nsaids. MD complaint: Abdominal pain, nausea, vomiting, diarrhea,dehydration Onset (ago): week(s) (3) Location: abdomen Radiation: non-radiation Severity: moderate Severity scale (1-10): 7 Quality: aching Consistency: intermittent Relieving factors: medication (Tylenol) Related Data Previous Rx's ?Medication ?Instructions ?Recorded amoxicillin 875 mg-potassium 1 tab PO BID #20 tabs clavulanate 125 mg tablet benzonatate 100 mg capsule 100 mg PO TID PRN cough #10 caps 04/02/24 Allergies Allergy/AdvReac Type Severity Reaction Status Date / Time No Known Allergies Allergy Verified 04/01/24 19:14 Review of Systems Review of Systems Systems Reviewed: All systems reviewed, normal except as documented Past Medical History Past Medical History CARDIAC: Positive Hypertension ENDOCRINE: Positive Diabetes Mellitus Type 2 HEMATOLOGIC: Positive Anemia Social History SMOKING STATUS: Never smoker ED Exam Narrative Physical exam: GENERAL APPEARANCE: Patient is AO x 3, pale appearing female in no acute distress. HEENT: NC, AT. Dry mucous membrane. EOMI, clear conjunctiva, oropharynx clear. NECK: Supple without lymphadenopathy. No stiffness or restricted ROM. Dull looking pink-colored plaque on upper chest. HEART: Sinus tachycardia with regular rhythm, normal S1/S2, no m/r/g LUNGS: CTAB, moving air well. No crackles or wheezes are heard. ABDOMEN: Soft, epigastric tenderness, nondistended with good bowel sounds heard. BACK: No CVAT, no obvious deformity. [place]-colored plaque on the upper back. EXTREMITIES: Without cyanosis, clubbing or edema. NEUROLOGICAL: Grossly nonfocal. Alert and oriented, moving all 4 extremities. CN not formally tested but appear grossly intact. Observed to ambulate with normal gait. Skin: dull [place] color palque non-itchy over chest,left arm and upper back. ?Nummular Eczema Psych: Appropriate mood and affect Course Quality Measures none Orders Category Date Time Status Bedside Blood Glucose NOW Care 07/09/24 21:00 Active COVID-19 Screening Questionnaire NOW Care 07/09/24 20:55 Active COVID-19 Screening Questionnaire NOW Care 07/09/24 21:03 Completed Decision to Admit X1 Care 07/09/24 21:02 Completed EKG (ED ONLY) *Do not use* NOW Care 07/09/24 20:37 Completed [place] [Urinary Catheter] QS Care 07/09/24 20:36 Active IV [Insert IV] STAT Care 07/09/24 19:44 Active Occult Blood,Stool (Nursing) NOW Care 07/09/24 20:36 Active Strict Intake and Output Routine Care 07/09/24 20:37 Ordered EKG (ED Only) Stat Exams 07/09/24 20:36 Draft US renal BI Stat Exams 07/09/24 21:01 Ordered CBC Stat Lab 07/09/24 16:49 Completed Calcium, Random Urine Stat Lab 07/09/24 20:50 Received Comprehensive Metabolic Panel Stat Lab 07/09/24 16:49 Completed Creatinine,Random Urine Stat Lab 07/09/24 20:50 Received Electrolytes, Urine Random Stat Lab 07/09/24 20:50 Received Lipase Stat Lab 07/09/24 16:49 Completed Mag [Magnesium] Routine Lab 07/09/24 21:02 Ordered Microalbumin, Ur Rnd w Creat Stat Lab 07/09/24 20:50 Received PTH [Parathyroid Hormone Intact] Stat Lab 07/09/24 20:58 Received Phosphorous Routine Lab 07/09/24 21:02 Ordered Urinalysis Stat Lab 07/09/24 20:50 Received Urinalysis, C/S if Indicated Stat Lab 07/09/24 17:08 Completed Urine Culture Stat Lab 07/09/24 20:50 Received Acetaminophen Tab [Tylenol Tab] Med 07/09/24 21:01 Discontinued 650 mg PO X1 ONE Ringers Lactated 1000 ml [Lactated Ringers] 1,000 ml Med 07/09/24 20:37 Active IV 100 mls/hr Ringers Lactated 1000 ml [Lactated Ringers] 1,000 ml Med 07/09/24 20:36 Active IV 999 mls/hr Vital Signs Vital signs: Vital Signs Temperature 97.7 F 07/09/24 16:27 Pulse Rate 110 H 07/09/24 16:27 Respiratory Rate 18 07/09/24 16:27 Blood Pressure 152/80 H 07/09/24 16:27 Pulse Oximetry (%) 100 07/09/24 16:27 Oxygen Delivery Method Room Air 07/09/24 16:27 Discharge Plan Plan Patient Disposition: Admit Acute Care w/in Hospital Prescriptions/Referrals Prescriptions/Med Rec: No Action benzonatate 100 mg capsule 100 mg PO TID PRN (Reason: cough) Qty: 10 0RF amoxicillin-pot clavulanate 875-125 mg tablet 1 tab PO BID Qty: 20 0RF Referrals: Hernandez Marquez PA-C [Primary Care Provider] - In 1 week Problem List Clinical Impression: SANTOS (acute kidney injury), Dehydration, Hypercalcemia Patient/Caregiver Discharge Instructions Print Language: Urdu Stand Alone Forms: [facility] Award Info., Patient Portal Info Letter MDM Medication Administration(s) Medication Administration History Lactated Ringer's (Lactated Ringers) 1,000 mls @ 999 mls/hr IV .Q1H1M ONE Stop: 07/09/24 21:36 Last Admin: 07/09/24 21:06 Dose: 999 mls/hr Documented By: EDITH Lactated Ringer's (Lactated Ringers) 1,000 mls @ 100 mls/hr IV .Q10H JAYRO Stop: 08/08/24 20:36 Last Admin: 07/09/24 21:06 Dose: 100 mls/hr Documented By: CB Discontinued Medications Acetaminophen (Acetaminophen 325 Mg Tablet) 650 mg PO X1 ONE Stop: 07/09/24 21:02
--- NOTE | 2024-07-09 20:36 | EKG_ITS ---
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
--- NOTE | 2024-07-09 21:01 | XR_ITS ---
Examination: Retroperitoneal ultrasound, complete Technique: Multiple high resolution grayscale images of the retroperitoneum obtained, including kidneys and bladder. Exam date and time:Jul 09 [id number] hours indications: Abdominal pain. FINDINGS: Right kidney 11.8 cm cortex 1.7 cm Left kidney 11.8 cm cortex 1.5 cm Mild bilateral renal parenchymal scar formation Contracted urinary bladder. IMPRESSION: No hydronephrosis or renal calculi
[2024-07-09 21:06] LABS: Collection Type, Urine Catheter
[2024-07-09] MEDS: RINGERS LACTATED 1000 ML 1,000 ML 999 ML IV (21:06)
[2024-07-09] MEDS: RINGERS LACTATED 1000 ML 1,000 ML 100 ML IV (21:06)
[2024-07-09 21:12] VITALS: BP 147/69; PULSE 91; RESP 16; TEMP 36.6; O2SAT 99
[2024-07-09 21:17] LABS: Bilirubin,Urine Negative (Negative); Blood,Urine Trace (Negative); Clarity,Urine Clear (Clear/Hazy); Color,Urine Lt-Yellow (Lt Yel-Yel); Glucose, Urine 4+ (Negative); Ketones,Urine Negative (Negative); Leukocyte Esterase,Urine Positive (Negative); Nitrite,Urine Negative (Negative); Protein,Urine 1+ (Neg - Trace); RBC,Urine 3 /hpf (0-3); Specific Gravity,Urine 1.013 (1.001-1.035); Squamous Epithelial Cell,Urine < 1 /hpf (0-5); Urobilinogen,Urine Negative mg/dL (0.0-1.0); WBC,Urine 15 /hpf (0-5)
[2024-07-09 21:32] LABS: Magnesium 1.6 mg/dL (1.6-2.6); Phosphorous 4.9 mg/dL (2.4-5.1)
[2024-07-09 21:38] LABS: Calcium, Random Urine 7 mg/dL (2-18); Chloride,Urine Random 33.8 mMol/L (55.0-125.0); Creatinine MALB Rnd Ur 73 mg/dL (30-125); Creatinine,Random Urine 73 mg/dL (30-125); Microalbumin Creat Ratio 255 mg/gCrea (<30); Microalbumin, Random Urine 186 mg/L (0-300); Potassium,Urine Random 32 mMol/L (12-62); Sodium,Urine Random 37.3 mMol/L (20.0-110.0)
[2024-07-09] MEDS: ACETAMINOPHEN 325 MG TABLET 650 MG PO (22:10)
[2024-07-09 22:21] VITALS: BP 157/85; PULSE 89; RESP 16; TEMP 36.6; O2SAT 100
[2024-07-09] MEDS: HEPARIN SOD INJ 5000 UNIT/ML VIAL SC (23:18)
[2024-07-09] MEDS: Magnesium Sulfate 2 GM Ivpb 2 GM/50 ML BAG IV (23:18)
--- NOTE | 2024-07-09 23:43 | ESHP_ITS ---
Documentation for date of: 07/09/24 [facility] History of Present Illness History of present illness: Ms Chandra is a 58-year-old khmer speaking female with past medical history of hypertension, type 2 diabetes on insulin, history of thyroid nodules presented to the ED on 07/09/2024 with chief complaint of 3-week history of abdominal pain associated with nausea vomiting and loose stools. Patient's sister is present at the bedside, assisted in procuring history. They went to the [facility] today and were sent to the ER due to severe dehydration. Patient reported that her symptoms started 3 weeks ago when she started having epigastric discomfort rated the pain as 7 on 10 not related with the food associated with nausea and vomiting relieved only with Tylenol and usually at day time. She also had loose stools 2 days ago. Vomiting was present at initial time when the pain started 3 weeks ago . She denied noticing any blood in vomit or stool. She was initially on Victoza and lost 50 pounds in 1 year time spent and was switched to Trulicity by her primary care doctor. She also reported to heart racing of heart and lightheadedness. She has been not drinking enough water and reported that has been taking Advil 3 tablets 3 times a day for back pain. She is making a little urine due to decrease p.o. intake. Denies any cough, fever or chills, shortness of breath or chest pain. Patient also has a dull pink-colored papule/plaque on her left arm and on the back also on the upper chest initially they were itchy 3 weeks ago. ED Course: ED Vitals: On presentation blood pressure 152/87, heart rate 110, respiratory rate 18, temp 97.7, O2 sat 100 on room air ED Labs: ED labs show hemoglobin 9.8, hematocrit 30.1, MCV 77, BUN 64, creatinine 3.9, GFR 13, glucose 127, corrected calcium 12.9, total protein 8.7, globulin 4.1 urinalysis was contaminated, repeat ordered by ED physician ED Imaging:Renal ultrasound in ED shows no hydronephrosis or renal calculi, EKG showed sinus rhythm with Short QT intervals. QTc 402.No acute ST-T changes ED Treatment: Patient seen 1 L LR bolus, Tylenol 650 x 1, magnesium 2 g x 1 and started on maintenance fluid LR 100 cc/h in emergency department Review of Systems Review of Systems Narrative Review of Systems: ROS: -CONSTITUTIONAL: Denies fever and chills. Positive for weight loss. -HEENT: Denies changes in vision and hearing. -RESPIRATORY: Denies SOB and cough. -CV: Denies palpitations and Chest Pain. -GI: Positive for abdominal pain, nausea, vomiting and diarrhea. -: Denies dysuria and urinary frequency. -MSK: Denies myalgia and joint pain. -SKIN: Denies rash and pruritus. -NEUROLOGICAL: Denies headache and syncope. -PSYCHIATRIC: Denies recent changes in mood. Denies anxiety and depression. Past Medical History Past Medical History Comments PMH COMMENT: PMH: Positive for hypertension and diabetes PSHx: Denies Allergies: No known drug and food allergies Social history: -Smoking: Denies -Alcohol Use: Denies -Illicit Drug Use: Denies -Martial Status: Never , no kids Family History: No pertinent family history Exam Vital Signs Temp Pulse Resp BP Pulse Ox O2 Del Method 98 F 89 16 157/85 H 100 Room Air 07/09/24 22:21 07/09/24 22:21 07/09/24 22:21 07/09/24 22:21 07/09/24 22:21 07/09/24 22:21 Narrative Exam GENERAL APPEARANCE: Patient is AO x 3, pale appearing female in no acute distress. HEENT: NC, AT. Dry mucous membrane. EOMI, clear conjunctiva, oropharynx clear. NECK: Supple without lymphadenopathy. No stiffness or restricted ROM. Dull looking pink-colored plaque on upper chest. HEART: Sinus tachycardia with regular rhythm, normal S1/S2, no m/r/g LUNGS: CTAB, moving air well. No crackles or wheezes are heard. ABDOMEN: Soft, epigastric tenderness, nondistended with good bowel sounds heard. BACK: No CVAT, no obvious deformity. Pandora-colored plaque on the upper back. EXTREMITIES: Without cyanosis, clubbing or edema. NEUROLOGICAL: Grossly nonfocal. Alert and oriented, moving all 4 extremities. CN not formally tested but appear grossly intact. Observed to ambulate with normal gait. Skin: dull Pandora color palque non-itchy over chest,left arm and upper back. ?Nummular Eczema Psych: Appropriate mood and affect Results: Labs 07/10/24 05:00 07/10/24 00:20 Labs: Short CBC 07/09/24 Range/Units 16:49 WBC 7.4 (3.6-11.0) Thou/mm3 Hgb 9.8 L (12.0-16.0) g/dL Hct 30.1 L (36.0-46.0) % Plt Count 269 (140-440) Thou/mm3 BMP 07/09/24 16:49 Sodium 138 Potassium 3.7 Chloride 98 Carbon Dioxide 26.2 BUN 64 H Creatinine 3.9 H Glucose 127 H Calcium 12.9 H* Liver Function 07/09/24 Range/Units 16:49 Total Bilirubin 0.6 (0.3-1.2) mg/dL AST 13 (0-34) U/L ALT < 7 L (10-49) U/L Alkaline Phosphatase 80 (46-116) U/L Albumin 4.6 (3.5-5.0) gm/dL Urine 07/09/24 07/09/24 Range/Units 17:08 20:50 Urine Color Yellow Lt-Yellow (Lt Yel-Yel) Urine Clarity Turbid A Clear (Clear/Hazy) Urine pH 5.5 6.0 (5.0-7.0) Ur Specific [place] 1.012 1.013 (1.001-1.035) Urine Protein 1+ A 1+ A (Neg - Trace) Urine Glucose (UA) 4+ A 4+ A (Negative) Quality Measures Quality Measures none Medications Home Medications and Allergies Allergies Allergy/AdvReac Type Severity Reaction Status Date / Time No Known Allergies Allergy Verified 04/01/24 19:14 Visit Medications Acetaminophen (Acetaminophen 325 Mg Tablet) 650 mg PO Q6H PRN PRN Reason: Pain (1-3) & Fever >101.5 Stop: 08/08/24 22:27 Hydrocodone Bitart/Acetaminophen (Hydrocodone/Apap 5/325 Tablet) 1 tab PO Q6HR PRN PRN Reason: PAIN SCALE 4-10(Mod-Sev Stop: 07/14/24 23:01 Dextrose (Dextrose 50%-Water Inj 50 Ml Syringe) 25 ml IV Q15MIN PRN PRN Reason: BG 50-70 responsive npo pt Stop: 08/08/24 22:59 Dextrose (Dextrose 50%-Water Inj 50 Ml Syringe) 50 ml IV Q15MIN PRN PRN Reason: BG <50 OR BG <70 & pt unresponsive Stop: 08/08/24 22:59 Glucagon (Glucagon Inj 1 Mg Vial) 1 mg IM Q15MIN PRN PRN Reason: BG <70, and no IV access Heparin Sodium (Porcine) (Heparin Sod Inj 5000 Unit/Ml Vial) 5,000 unit SC Q12H JAYRO Stop: 07/23/24 22:44 Last Admin: 07/09/24 23:18 Dose: 5,000 unit Lactated Ringer's (Lactated Ringers) 1,000 mls @ 100 mls/hr IV .Q10H JAYRO Stop: 08/08/24 20:36 Last Admin: 07/09/24 21:06 Dose: 100 mls/hr Magnesium Sulfate (Magnesium Sulfate Ivpb) 2 gm in 50 mls @ 25 mls/hr IV X1 ONE Stop: 07/10/24 00:24 Last Admin: 07/09/24 23:18 Dose: 25 mls/hr Insulin Human Lispro (Insulin Lispro (Admelog) 1 Unit/0.01 Ml Unit) 0 unit SC AC JAYOR; Protocol Stop: 08/09/24 07:29 Ondansetron HCl (Ondansetron Inj 2 Mg/Ml Inj 2 Ml) 4 mg IV Q6H PRN; Protocol PRN Reason: NAUSEA OR VOMITING Stop: 08/08/24 22:27 Discontinued Medications Acetaminophen (Acetaminophen 325 Mg Tablet) 650 mg PO X1 ONE Stop: 07/09/24 21:02 Last Admin: 07/09/24 22:10 Dose: 650 mg Lactated Ringer's (Lactated Ringers) 1,000 mls @ 999 mls/hr IV .Q1H1M ONE Stop: 07/09/24 21:36 Last Infusion: 07/09/24 22:12 Dose: Infused Assessment & Plan Plan Assessment and plan: Summary: Ms Chandra is a 58-year-old khmer speaking female with past medical history of hypertension, type 2 diabetes on insulin, history of thyroid nodules presented to the ED on 07/09/2024 with chief complaint of 3-week history of abdominal pain associated with nausea vomiting and loose stools. Patient admitted for SANTOS on CKD. #SANTOS on CKD #Hypercalcemia #Microcytic normochromic anemia DDx: Prerenal SANTOS, multiple myeloma, AIN, renal injury secondary to nephrotoxins, diabetic nephropathy progression Patient presented with BUN 64, creatinine 3.9, reports history of nausea vomiting poor p.o. intake, also complains of diarrhea and abdominal pain. Otherwise labs also consistent with hemoglobin 9.8, hematocrit 30.1, MCV 77, corrected calcium 12.9, renal ultrasound shows no hydronephrosis or calculi. Baseline creatinine 1.2, GFR 52 in March 2024. Urine sodium 37.3, potassium 32, chloride 33.8, calcium 7 Plan: - Continue maintenance IV fluid LR 100 cc/h - Repeat renal panel at midnight, follow CMP in a.m. - Nephrology consulted, appreciate recommendations - Strict intake and output, Mont[place] Oca catheter - Moderate hypercalcemia, will continue with IV hydration, follow PTH - Follow CBC in a.m. #Diarrhea Patient complains of diarrhea since the last 2 days. Was given Augmentin recently in March 2024 in ED Plan: - Follow stool culture - Stool WBC, fecal calprotectin ordered - Consider ordering C. difficile if patient has foul-smelling diarrhea #Diabetes mellitus Patient on Basaglar 28 units, Synjardy - Sliding scale insulin, fingerstick checks - Hypoglycemia protocol - Follow A1c in a.m. #Hypertension Patient on amlodipine 5 mg, metoprolol tartrate 100 mg twice daily, losartan?HCTZ 100/25 mg tablet -Monitor blood pressure #Thyroid nodule by history Per chart review patient has thyroid nodule found on imaging. - Follow TSH, free T4 in a.m. #Multiple dull pink-colored papules/plaque Suspicion of eczema, continue to monitor DVT prophylaxis: Heparin every 12 hours GI prophylaxis: Not indicated Diet: Renal diet Lines: Peripheral IV Code status: Full code. Case discussed with Attending Dr. Richardson. Dimitrios Hoyos PGY1 Disclaimer: This note was dictated by speech recognition. Minor errors in pearl peller may be present due to voice recognition software. Attending Provider Attestation/Addendum I have examined the patient, reviewed labs and imaging findings, discussed the case with the resident(s), and reviewed entered orders. I agree with the plan of care as outlined in this note, with these additional summaries/recommendations: 58-year-old female with past medical history of uncontrolled DM presents to the ED with chief complaint of weakness, dehydration, nausea vomiting, diarrhea that has been ongoing for several weeks and worsening. Patient found to have SANTOS, hypercalcemia, anemia all consistent with possible worsening of CKD versus SANTOS it does appear severely dehydrated and weak. Will admit patient for further workup and management of SANTOS, nephrology consult will continue to monitor renal function closely. Sylvain Richardson MD
[2024-07-10] VITALS (15 sets, daily range): BP systolic 144–173; BP diastolic 69–94; PULSE 62–102; RESP 10–98; TEMP 36.1–37.2; O2SAT 95–99; BMI 20.1
[2024-07-10 01:43] LABS: Albumin, Serum 3.8 gm/dL (3.5-5.0); Anion Gap 10 (7-16); BUN/Creatinine Ratio 18 Ratio (12-20); Blood Urea Nitrogen 65 mg/dL (9-23); Calcium 12.1 mg/dL (8.3-10.6); Calcium (Corrected) 12.3 mg/dL (8.5-10.1); Carbon Dioxide 27.6 mMol/L (20.0-31.0); Chloride 100 mMol/L (98-107); Creatinine (Component) 3.6 mg/dL (0.6-1.3); Estimated Creatinine Clearance 13.5 mL/min (>60); Glucose 126 mg/dL (74-106); Osmolality,Calculated 296 (275-295); Phosphorous 4.4 mg/dL (2.4-5.1); Potassium 3.2 mMol/L (3.4-5.1); Sodium 138 mMol/L (136-145); eGFR 14 See Note
[2024-07-10] MEDS: POTASSIUM CHLORIDE 20 mEq TABCR PO (03:05)
[2024-07-10 05:31] LABS: Basophils % (Auto) 1 % (0-2.5); Eosinophils # (Auto) 0.4 Thou/mm3 (0.0-0.5); Eosinophils % (Auto) 8 % (0-10); Immature Granulocytes % (Auto) 0 % (0-0); Immature Granulocytes Auto 0.01 Thou/mm3 (0.00-0.00); Lymphocytes # (Auto) 1.2 Thou/mm3 (1.0-4.8); Lymphocytes % (Auto) 25 % (10-50); Mean Corpuscular HGB Conc 32.4 g/dl (31.0-37.0); Mean Corpuscular Hemoglobin 25.1 pg (25.0-35.0); Mean Corpuscular Volume 77 fL (80-100); Monocytes # (Auto) 0.5 Thou/mm3 (0.0-0.8); Monocytes % (Auto) 9 % (0-12); Neutrophils # (Auto) 2.8 Thou/mm3 (1.8-7.7); Neutrophils % (Auto) 57 % (37-80); Nucleated Red Blood Cell % 0 /100 WBC (0); Platelet Count 194 Thou/mm3 (140-440); Red Blood Count 3.23 Miln/mm3 (4.00-5.20); White Blood Count 4.9 Thou/mm3 (3.6-11.0)
[2024-07-10 05:41] LABS: Glucose Estimated Average 169 mg/dL (80-131); Hemoglobin A1C 7.5 % Hgb (4.8-6.0)
[2024-07-10 06:12] LABS: Hemoglobin 8.1 g/dL (12.0-16.0)
[2024-07-10 06:16] LABS: Alanine Aminotransferase < 7 U/L (10-49); Albumin, Serum 3.7 gm/dL (3.5-5.0); Albumin/Globulin Ratio 1.1 (1.2-2.2); Alkaline Phosphatase 69 U/L (46-116); Anion Gap 10 (7-16); Aspartate Amino Transferase 10 U/L (0-34); BUN/Creatinine Ratio 18 Ratio (12-20); Bilirubin,Total 0.5 mg/dL (0.3-1.2); Blood Urea Nitrogen 63 mg/dL (9-23); Calcium (Corrected) 12.2 mg/dL (8.5-10.1); Carbon Dioxide 29.1 mMol/L (20.0-31.0); Cardiac Risk Estimate 2.8 RATIO (3.7-5.6); Chloride 101 mMol/L (98-107); Cholesterol 94 mg/dL (132-200); Creatinine (Component) 3.6 mg/dL (0.6-1.3); Estimated Creatinine Clearance 16.2 mL/min (>60); Free T4 (Free Thyroxine) 1.65 ng/dL (0.89-1.76); Globulin 3.3 gm/dL (2.3-3.5); Glucose 137 mg/dL (74-106); HDL Cholesterol 34 mg/dL (40-60); LDL Cholesterol,Calculated 40 mg/dL (0-130); Osmolality,Calculated 299 (275-295); Potassium 3.4 mMol/L (3.4-5.1); Sodium 140 mMol/L (136-145); Thyroid Stimulating Hormone 1.13 uIU/mL (0.55-4.78); Triglycerides 102 mg/dL (30-150); eGFR 14 See Note
[2024-07-10 06:17] LABS: Iron 23 mcg/dL (50-170); Percent Iron Saturation 9 % (20-55); Total Iron Binding Capacity 253 mcg/dL (250-425); Unsaturated Iron Binding 230 (225-295)
[2024-07-10] MEDS: amLODIPine BESYLATE 5 MG TABLET 10 MG PO (08:57)
[2024-07-10] MEDS: METOPROLOL TARTRATE 25 MG TABLET 100 MG PO ×2 (08:57→20:38)
[2024-07-10] MEDS: RINGERS LACTATED 1000 ML 1,000 ML 100 ML IV ×2 (08:57→21:48)
[2024-07-10] MEDS: ACETAMINOPHEN 325 MG TABLET 650 MG PO ×2 (09:13→23:23)
--- NOTE | 2024-07-10 10:07 | XR_ITS ---
Examination: CT abdomen and pelvis without contrast. Coronal 3-D reconstructions. Sagittal 2-D reconstructions. Date and time of exam:July 10, 2024 1316 hrs. Comparison April 02, 2024 Indications: Abdominal pain vomiting back pain flank pain acute renal insufficiency on laboratory examination today CTDI: vol (mGy): 5.67 DLP: (mGycm): 291 Technique: Axial images of the abdomen have been obtained, 3 mm slice thickness Intravenous contrast material has not been administered. Low dose protocols were performed. One or more of the following dose reduction techniques were used; automated exposure control, adjustment of the mA and/or KV according to patient size, use of iterative reconstruction technique. Findings: Liver is mildly irregular in contour no focal liver lesions Absent gallbladder Splenomegaly AP dimension 14 cm Common hepatic duct 12 mm no common hepatic duct or common bile duct stones 3 mm lower pole left renal calculus Normal appendix No bowel obstruction No diverticulitis Urinary bladder contracted around a Montes De Oca catheter Atrophic uterus Impression: Cirrhosis Splenomegaly Enlarged common hepatic duct 12 mm, recommend hepatobiliary sonography follow-up 3 mm lower pole nonobstructing left renal calculus, no hydronephrosis or ureteral calculi Normal appendix No bowel obstruction
[2024-07-10] MEDS: CALCITONIN, SALMON SYNTH INJ 1 UNIT/0.005 ML VIAL 240 UNIT SC (10:42)
[2024-07-10] MEDS: HEPARIN SOD INJ 5000 UNIT/ML VIAL SC (10:43)
--- NOTE | 2024-07-10 11:05 | ESPR_ITS ---
Documentation for date of: 07/10/24 Subjective Subjective Interval history: Patient examined at bedside today. No acute overnight events. Patient reports that she has been taking ibuprofen 600 mg 3 times a day for 2 weeks. She denies a history of kidney disease. She says she takes insulin at home. She says that she has been taking ibuprofen for her lower back pain. She also says that she recently started Trulicity and has lost about 50 pounds within the past year. No other complaints this time Exam Vital Signs Temp Pulse Resp BP Pulse Ox O2 Del Method 97.6 F 95 19 152/69 H 95 Room Air 07/10/24 08:00 07/10/24 08:57 07/10/24 08:54 07/10/24 08:57 07/10/24 08:00 07/10/24 08:00 Narrative Exam General: AAOx3, NAD, Kyrgyz speaking female HEENT: Moist mucous membranes, conjunctiva clear, EOMI, PERRLA, poor dentition Cardiovascular: S1, S2, radial pulses +2 bilat, RRR Pulmonary: CTAB bilat no cough, no wheezing GI: No tenderness to light or deep palpitation, no guarding, rigidity, rebound tenderness or distension Extremities: No presence of trace or pitting edema in lower extremities bilaterally, dorsalis pedis pulses +2 bilaterally, multiple spots of rash that is flat no papules or pustules, some ulcerations erythematous with symmetric and even borders seen on arms back and chest Neuro: AAOx3, no focal motor or sensory deficits in the UE or LE bilat Psych: Good judgement, thought and behavior Objective Labs 07/11/24 04:44 07/11/24 04:44 Labs: Laboratory Results - last 24 hr 07/09/24 07/09/24 07/09/24 16:49 17:08 20:50 WBC 7.4 RBC 3.90 L Hgb 9.8 L Hct 30.1 L MCV 77 L MCH 25.1 MCHC 32.6 RDW Std Deviation 40.5 Plt Count 269 Neut % (Auto) 68 Lymph % (Auto) 21 [place] % (Auto) 7 Eos % (Auto) 3 Baso % (Auto) 1 Neut # (Auto) 5.0 Lymph # (Auto) 1.6 [place] # (Auto) 0.5 Eos # (Auto) 0.2 Baso # (Auto) 0.1 Immature Gran # (Auto) 0.03 H Absolute Nucleated RBC 0.00 Immature Gran % 0 Nucleated RBC % 0 Sodium 138 Potassium 3.7 Chloride 98 Carbon Dioxide 26.2 Anion Gap 14 BUN 64 H Creatinine 3.9 H Estim Creat Clear Calc 12.4 L eGFR 13 L* BUN/Creatinine Ratio [address] Glu mg/dL Hemoglobin A1c Calculated Osmolality 295 Calcium 12.9 H* Corrected Calcium 12.9 H Phosphorus Magnesium Iron TIBC Iron Saturation Unsat Iron Binding Total Bilirubin 0.6 AST 13 ALT < 7 L Alkaline Phosphatase 80 Total Protein 8.7 H Albumin 4.6 Globulin 4.1 H Albumin/Globulin Ratio 1.1 L Triglycerides Cholesterol LDL Cholesterol, Calc HDL Cholesterol Cholesterol/HDL Ratio Lipase 34 TSH Free T4 Ur Collection Type Voided Catheter Urine Color Yellow Lt-Yellow Urine Clarity Turbid A Clear Urine pH 5.5 6.0 Ur Specific [place] 1.012 1.013 Urine Protein 1+ A 1+ A Urine Glucose (UA) 4+ A 4+ A Urine Ketones Negative Negative Urine Blood 1+ A Trace Urine Nitrite Negative Negative Urine Bilirubin Negative Negative Urine Urobilinogen (Auto) Negative Negative Ur Leukocyte Esterase Positive Positive Urine RBC 9 H 3 Urine WBC 516 H 15 H Ur Squamous Epith Cells 18 H < 1 Ur Transition Epith Cell 6 H Urine Bacteria Rare None Ur Culture Indicated? Contaminated Ur Random Creatinine 73 Ur Random Microalbumin 186 Ur Random Sodium 37.3 Ur Random Potassium 32 Ur Random Chloride 33.8 L Ur Random Calcium 7 U Creat (Microalbumin) 73 Microalb/Creat Ratio 255 H 07/09/24 07/10/24 07/10/24 20:58 00:20 05:00 WBC 4.9 RBC 3.23 L Hgb 8.1 L Hct 25.0 L MCV 77 L MCH 25.1 MCHC 32.4 RDW Std Deviation 41.0 Plt Count 194 D Neut % (Auto) 57 Lymph % (Auto) 25 [place] % (Auto) 9 Eos % (Auto) 8 Baso % (Auto) 1 Neut # (Auto) 2.8 Lymph # (Auto) 1.2 [place] # (Auto) 0.5 Eos # (Auto) 0.4 Baso # (Auto) 0.0 Immature Gran # (Auto) 0.01 H Absolute Nucleated RBC 0.00 Immature Gran % 0 Nucleated RBC % 0 Sodium 138 140 Potassium 3.2 L D 3.4 Chloride 100 101 Carbon Dioxide 27.6 29.1 Anion Gap 10 10 BUN 65 H 63 H Creatinine 3.6 H 3.6 H Estim Creat Clear Calc 13.5 L 16.2 L eGFR 14 L* 14 L* BUN/Creatinine Ratio 18 18 Glucose [address] Glu mg/dL 169 H Hemoglobin A1c 7.5 H Calculated Osmolality 296 H 299 H Calcium 12.1 H 12.0 H Corrected Calcium 12.3 H 12.2 H Phosphorus 4.9 4.4 Magnesium 1.6 2.0 Iron 23 L TIBC 253 Iron Saturation 9 L Unsat Iron Binding 230 Total Bilirubin 0.5 AST 10 ALT < 7 L Alkaline Phosphatase 69 Total Protein 7.0 Albumin 3.8 D 3.7 Globulin 3.3 Albumin/Globulin Ratio 1.1 L Triglycerides 102 Cholesterol 94 L LDL Cholesterol, Calc 40 HDL Cholesterol 34 L Cholesterol/HDL Ratio 2.8 L Lipase TSH 1.13 Free T4 1.65 Ur Collection Type Urine Color Urine Clarity Urine pH Ur Specific [place] Urine Protein Urine Glucose (UA) Urine Ketones Urine Blood Urine Nitrite Urine Bilirubin Urine Urobilinogen (Auto) Ur Leukocyte Esterase Urine RBC Urine WBC Ur Squamous Epith Cells Ur Transition Epith Cell Urine Bacteria Ur Culture Indicated? Ur Random Creatinine Ur Random Microalbumin Ur Random Sodium Ur Random Potassium Ur Random Chloride Ur Random Calcium U Creat (Microalbumin) Microalb/Creat Ratio Quality Measures Quality Measures none Assessment & Plan Assessment Current Active Medications: Generic Name Dose Route Start Last Admin Trade Name Freq PRN Reason Stop Dose Admin Acetaminophen 650 mg 07/09/24 22:28 07/10/24 09:13 Acetaminophen 325 Mg Tablet PO 08/08/24 22:27 650 mg Q6H PRN Administration Pain (1-3) & Fever >101.5 Hydrocodone Bitart/Acetaminophen 1 tab 07/09/24 23:02 Hydrocodone/Apap 5/325 Tablet PO 07/14/24 23:01 Q6HR PRN PAIN SCALE 4-10(Mod-Sev Amlodipine Besylate 10 mg 07/10/24 09:00 07/10/24 08:57 Amlodipine Besylate 5 Mg Tablet PO 08/09/24 08:59 10 mg DAILY JAYRO Administration Dextrose 25 ml 07/09/24 23:00 Dextrose 50%-Water Inj 50 Ml Syringe IV 06/02/25 22:59 Q15MIN PRN BG 50-70 responsive npo pt Dextrose 50 ml 07/09/24 23:00 Dextrose 50%-Water Inj 50 Ml Syringe IV 08/08/24 22:59 Q15MIN PRN BG <50 OR BG <70 & pt unresponsive Glucagon 1 mg 07/09/24 23:00 Glucagon Inj 1 Mg Vial IM Q15MIN PRN BG <70, and no IV access Heparin Sodium (Porcine) 5,000 unit 07/09/24 22:45 07/10/24 10:43 Heparin Sod Inj 5000 Unit/Ml Vial SC 07/23/24 22:44 5,000 unit Q12H JAYRO Administration Lactated Ringer's 1,000 mls @ 100 mls/hr 07/09/24 20:37 07/10/24 08:57 Lactated Ringers IV 08/08/24 20:36 100 mls/hr .Q10H JAYRO Administration Insulin Human Lispro 0 unit 07/10/24 07:30 07/10/24 07:40 Insulin Lispro (Admelog) 1 Unit/0.01 Ml Unit SC 08/09/24 07:29 Not Given AC JAYRO Protocol Metoprolol Tartrate 100 mg 07/10/24 09:00 07/10/24 08:57 Metoprolol Tartrate 25 Mg Tablet PO 08/09/24 08:59 100 mg BID JAYRO Administration Ondansetron HCl 4 mg 07/09/24 22:28 Ondansetron Inj 2 Mg/Ml Inj 2 Ml IV 08/08/24 22:27 Q6H PRN NAUSEA OR VOMITING Protocol Plan Assessment Brijesh is a 58-year-old Kyrgyz speaking female with past medical history of hypertension, type 2 diabetes on insulin, history of thyroid nodules presented to the ED on 07/09/2024 was admitted for SANTOS on CKD and hypercalcemia. #SANTOS on CKD #Hypercalcemia Patient presented with BUN 64, creatinine 3.9, has had GI losses for the past couple of weeks Patient reports that she has been taking ibuprofen 600 mg 3 times a day for a couple of weeks now I believe this SANTOS is multifactorial including intrarenal and prerenal causes due to poor oral intake and kidney damage from ibuprofen Renal ultrasound does not show any stone and at this time we can rule out postrenal causes Patient's GFR 14, creatinine 3.6 as this is slightly improving with fluid Patient's corrected hypercalcemia is at 12.2 We will need to follow-up PTH to decipher if it is PTH independent or dependent hypercalcemia Considering patient's recent weight loss of 50 pounds, malignancy will need to be higher in the differential if this is PTH independent and pt has strong family cancer history Patient does endorse that she has lost 50 pounds, was on Victoza and then put on Trulicity close last month, however patient does use insulin which can predispose to weight gain and the GLP's decrease this much weight loss within a year typically Renal ultrasound shows no hydronephrosis or calculi. Baseline creatinine 1.2, GFR 52 in March 2024. Urine sodium 37.3, potassium 32, chloride 33.8, calcium 7 Urine microalbumin 255 FeNa 1.2 Plan: ? Continue maintenance IV fluid LR 100 cc/h ? Calcitonin IV 4 mg/kg x1 ? Follow-up renal panel in the afternoon ? Nephrology consulted, appreciate recommendations ? Strict intake and output, Mont[place] De Oca catheter ? Trend CMP and follow-up PTH #Microcytic anemia Patient has been dealing with chronic anemia, current hemoglobin 8.1, MCV 77 Plan: ? Trend CBC ? Iron studies panel ? Peripheral blood smear ? Transfusion protocol hemoglobin below 7 ? Avoiding any NSAIDs ? SCDs ? Protonix 40 mg daily ? Follow-up FOBT #Splenomegaly #Diarrhea Splenomegaly seen on previous CT Patient complains of diarrhea since the last 2 days. Was given Augmentin recently in March 2024 in ED I have high suspicion for malignancy considering patient's weight loss, anemia, splenomegaly, and cancer history including lymphoma Plan: ? Follow stool culture ? Follow-up stool WBC, fecal calprotectin ordered ? Follow-up abdomen pelvis ? Follow-up inflammatory markers and LDH #Type 2 insulin-dependent diabetes mellitus Basaglar 28 units at home as well as Synjardy 07/999 A1c of 7.5 Plan: ? Sliding scale insulin ? Hypoglycemic protocol in place ? Blood sugar checks with meals ? Will hold on adding patient's insulin regimen from home at home #Hypertension Patient on amlodipine 5 mg, metoprolol tartrate 100 mg twice daily, losartan?HCTZ 100/25 mg tablet Patient will likely need change of blood pressure medicines upon discharge Plan: ? Hold on resuming blood pressure medicines ? Holding ARIEL/ARB in setting of SANTOS #Thyroid nodule by history Per chart review patient has thyroid nodule found on imaging. TSH and free T4 unremarkable Plan: ? Outpatient follow-up #Rash DDx: Nummular Eczema, Drug Exanthem, infectious, Malignancy Has been going on for about 7 months ago Patient is originally [place] as this could possibly be due to latent infection Could be a drug exanthem related to interstitial nephritis Patient does report that this rash has been there for 7 months now and the increased ibuprofen use was going on for about 2 months so this is less likely Rash appears to be in multiple spots on the body including arm chest and back some appear to be smaller than others, erythematous plaques no papules, mild ulceration with even and symmetric borders Has been itchy before in the past Plan: ? Consider IBIS ? Monitor for any changes ? Consider topical cream or antihistamines for rash #Health Maintenance Disposition: Telemetry DVT prophylaxis: SCDs GI prophylaxis: Not indicated at this time Diet: Renal CODE STATUS: Full Patient seen and care discussed with my attending physician, Dr. Alex Escobar, PGY-1 Attending Provider Attestation/Addendum I have examined the patient, reviewed labs and imaging findings, discussed the case with the resident(s), and reviewed entered orders. I agree with the plan of care as outlined in this note, with these additional summaries/recommendations: #SANTOS on CKD: SANTOS most likely secondary to prerenal azotemia from severe dehydration versus medication induced. Patient receiving IV fluids and will continue to monitor renal function. Avoid nephrotoxic agents. Appreciate nephrology recs. # Hypercalcemia: Medication induced versus renal disease versus primary hyperparathyroidism. PTH pending. IV fluids and we will give a dose of calcitonin today. Will continue to treat as needed. # Weight loss # Abdominal pain Patient has had significant weight loss over the last year. She appears to be up-to-date on mammograms but is pending referral for outpatient colonoscopy. Previous abdomen/pelvis CT showed marked splenomegaly with multiple splenic lesions with differentials including lymphoma, Hodgkin's disease, and less likely splenic abscess. Repeat CT abdomen and pelvis ordered and we will follow-up results when available # Rash: Has multiple mild demarcated, circumferential, erythematous, and itchy rashes on upper trunk and extremities and lower back. Patient reports these have been present for approximately 7 months. We will continue to monitor and see if rash worsens. Ultimately patient will need outpatient referral to dermatology. #DMII: Continue basal and bolus insulin. Accu-Cheks. A1c. # Primary hypertension: Okay to continue home amlodipine and metoprolol. Hold losartan/hydrochlorothiazide in the setting of SANTOS and hypercalcemia. Dr. Alex MD
[2024-07-10] MEDS: INSULIN LISPRO (AdmeLOG) 1 UNIT/0.01 ML UNIT SC (11:33)
--- NOTE | 2024-07-10 12:08 | PD.NEPHCONS ---
History of Present Illness Data of Consult Consult date: 07/10/24 Requesting Physician: Sylvain Richardson MD Primary Care Provider: Hernandez Marquez PA-C Consult Narrative Reason for consult: SANTOS,hypercalcemia History of present illness: Chart review done. Ms. Chandra is a 58-year-old female from home released with past medical history of hypertension, diabetes, aortic nodules presented to the emergency department yesterday complaining of abdominal discomfort associate with nausea vomiting and loose stools. Patient goes to [facility]. She has a taken to primary care doctor who recommended ER admission. In the emergency department patient was noted to be significantly dehydrated. Patient has been taking the Trulicity, Synjardy, losartan/hydrochlorothiazide, metoprolol, Augmentin, Tessalon Perles, amlodipine Patient was also taking ibuprofen 3 tablets 3 times daily for the last 3 weeks for her back pain. Apparently she has been having decreased urinary output. Patient also has rash in the body for the last couple of weeks. In the ED blood pressure 160/80, heart rate 110, EKG showed short QTc intervals. Sodium 138, potassium 3.7, BUN 64, creatinine 3.9, GFR 13, blood sugar 127, calcium 12.9, LFTs normal, albumin 4.6 urinalysis showed glucosuria, significant pyuria. Urine sodium 37.3 abdominal ultrasound showed splenomegaly with liver cirrhosis abdominal CT scan showed liver cirrhosis and splenomegaly. No hydronephrosis. Renal ultrasound showed sized kidneys with no hydronephrosis. Patient was admitted to telemetry and nephrology consultation requested for SANTOS and hypercalemia. Patient was started on IV fluids. cc:: cc: Sylvain Richardson MD Review of Systems Review of Systems Narrative Review of Systems: Limited due to his mental status. Past Medical History Past Medical History CARDIAC: Positive Cardiac Disorders and Hypertension; Negative Congestive Heart Failure RESPIRATORY: Negative Chronic Obstructive Pulmonary Disease (COPD) or Asthma GENITOURINARY: Negative Renal Disease ENDOCRINE: Positive Diabetes Mellitus Type 2; Negative Diabetes Mellitus Type 1 HEMATOLOGIC: Positive Anemia; Negative Sickle Cell Disease Social History SMOKING STATUS: Never smoker Past Medical History Comments PMH COMMENT: PMH: Positive for hypertension and diabetes PSHx: Denies Allergies: No known drug and food allergies Social history: -Smoking: Denies -Alcohol Use: Denies -Illicit Drug Use: Denies -Martial Status: Never , no kids Family History: No pertinent family history Meds Home Medications and Allergies Home Medications ?Medication ?Instructions ?Recorded ?Confirmed ?Type amlodipine 10 mg tablet 10 mg PO DAILY 07/10/24 07/10/24 History dulaglutide 0.75 mg/0.5 mL 0.75 mg subcut .weekly 07/10/24 07/10/24 History subcutaneous pen injector (Trulicity) empagliflozin 5 mg-metformin 1,000 tab 07/10/24 History mg tablet (Synjardy) Held on 07/10/24. Instructions: side effects insulin glargine 100 unit/mL (3 28 unit subcut QAM 07/10/24 07/10/24 History mL) subcutaneous pen (Basaglar KwikPen U-100 Insulin) losartan 100 1 tab PO DAILY 07/10/24 07/10/24 History mg-hydrochlorothiazide 25 mg tablet metoprolol tartrate 100 mg tablet 100 mg PO BID 07/10/24 07/10/24 History Allergies Allergy/AdvReac Type Severity Reaction Status Date / Time No Known Allergies Allergy Verified 04/01/24 19:14 Exam Vital Signs Temp Pulse Resp BP Pulse Ox O2 Del Method 36.4 C 91 19 152/69 H 95 Room Air 07/10/24 08:00 07/10/24 11:13 07/10/24 11:13 07/10/24 08:57 07/10/24 08:00 07/10/24 08:00 Results Labs 07/11/24 04:44 07/10/24 17:40 Labs: Short CBC 07/09/24 07/10/24 Range/Units 16:49 05:00 WBC 7.4 4.9 (3.6-11.0) Thou/mm3 Hgb 9.8 L 8.1 L (12.0-16.0) g/dL Hct 30.1 L 25.0 L (36.0-46.0) % Plt Count 269 194 D (140-440) Thou/mm3 BMP 07/09/24 07/10/24 07/10/24 16:49 00:20 05:00 Sodium 138 138 140 Potassium 3.7 3.2 L D 3.4 Chloride 98 100 101 Carbon Dioxide 26.2 27.6 29.1 BUN 64 H 65 H 63 H Creatinine 3.9 H 3.6 H 3.6 H Glucose 127 H 126 H 137 H Calcium 12.9 H* 12.1 H 12.0 H Liver Function 07/09/24 07/10/24 07/10/24 Range/Units 16:49 00:20 05:00 Total Bilirubin 0.6 0.5 (0.3-1.2) mg/dL AST 13 10 (0-34) U/L ALT < 7 L < 7 L (10-49) U/L Alkaline Phosphatase 80 69 (46-116) U/L Albumin 4.6 3.8 D 3.7 (3.5-5.0) gm/dL Urine 07/09/24 07/09/24 Range/Units 17:08 20:50 Urine Color Yellow Lt-Yellow (Lt Yel-Yel) Urine Clarity Turbid A Clear (Clear/Hazy) Urine pH 5.5 6.0 (5.0-7.0) Ur Specific [place] 1.012 1.013 (1.001-1.035) Urine Protein 1+ A 1+ A (Neg - Trace) Urine Glucose (UA) 4+ A 4+ A (Negative) Assessment & Plan Assessment and plan (1) SANTOS (acute kidney injury): Status: Acute Assessment and plan: SANTOS secondary to prerenal azotemia. Patient has been taking the metformin, hydrochlorothiazide, losartan, ibuprofen in the setting of nausea, vomiting and dehydration. Renal ultrasound, CT did not show any hydronephrosis. Agree with continuing on IV fluids. Avoid all nephrotoxic's. Strict I&O's ordered. (2) Hypercalcemia: Status: Acute Assessment and plan: Hypercalcemia probably related to dehydration. PTH 11.3 appropriate for hypercalcemia. Check vitamin D levels. (3) Dehydration: Status: Acute Assessment and plan: Continue with IV fluids (4) Rash: Status: Acute Assessment and plan: Questionable etiology-question eczema (5) Diabetes: Status: Acute Assessment and plan: Accu-Cheks, sliding scale (6) Hypertension: Status: Acute Assessment and plan: Was taking metoprolol, amlodipine, losartan/hydrochlorothiazide at home. Blood pressure currently seems to be acceptable. Hold losartan/hydrochlorothiazide. (7) Hyperlipidemia: Status: Acute Assessment and plan: Check lipid panel Additional Assessment & Plan Additional Plan: Thank you Ba for allowing me to participate in the care of Ms. Irizarrytrisha
[2024-07-10 13:05] LABS: Stool for WBCs Negative (Negative)
--- NOTE | 2024-07-10 14:29 | XR_ITS ---
Examination: Abdomen sonogram, complete Date and time of exam: July 10, 2024 1452 hrs. Indications: Abdominal pain nausea beginning 2 days ago. Technique: Multiple real-time grayscale transabdominal sonographic images of the abdomen have been obtained. Findings: Absent gallbladder Common bile duct 0.8 cm no stones Pancreatic head 1.9 cm Aorta not enlarged. Liver 14.9 cm mildly irregular contour no focal liver lesions Normal hepatopedal portal venous flow Patent IVC Right kidney 11.2 cm cortex 1.7 cm Left kidney 12.9 cm cortex 1.4 cm Mild renal parenchymal scar formation Significant splenomegaly 17.5 cm Impression: Absent gallbladder No common bile duct stones Primary hepatocellular disease versus cirrhosis Significant splenomegaly
[2024-07-10] MEDS: PANTOPRAZOLE INJ 40 MG VIAL IV (16:58)
[2024-07-10 18:10] LABS: Anion Gap 9 (7-16); BUN/Creatinine Ratio 16 Ratio (12-20); Blood Urea Nitrogen 54 mg/dL (9-23); Carbon Dioxide 27.6 mMol/L (20.0-31.0); Chloride 101 mMol/L (98-107); Creatinine (Component) 3.3 mg/dL (0.6-1.3); Estimated Creatinine Clearance 17.2 mL/min (>60); Glucose 169 mg/dL (74-106); Osmolality,Calculated 294 (275-295); Phosphorous 4.1 mg/dL (2.4-5.1); Sodium 138 mMol/L (136-145); eGFR 16 See Note
[2024-07-10 21:24] LABS: Parathyroid Hormone Intact 11.1 pg/ml (18.5-88.0)
[2024-07-10] MEDS: ONDANSETRON INJ 2 MG/ML INJ 2 ML 4 MG IV (23:23)
[2024-07-11] VITALS (12 sets, daily range): BP systolic 129–153; BP diastolic 60–70; PULSE 64–77; RESP 16–96; TEMP 36.1–36.8; O2SAT 94–97; BMI 19.2; BMI 19.1
[2024-07-11 06:05] LABS: Basophils % (Auto) 1 % (0-2.5); Eosinophils # (Auto) 0.3 Thou/mm3 (0.0-0.5); Eosinophils % (Auto) 6 % (0-10); Hematocrit 22.6 % (36.0-46.0); Immature Granulocytes % (Auto) 0 % (0-0); Immature Granulocytes Auto 0.01 Thou/mm3 (0.00-0.00); Immature Reticulocyte Fraction 7.6 % (3.0-15.9); Lymphocytes # (Auto) 1.4 Thou/mm3 (1.0-4.8); Lymphocytes % (Auto) 24 % (10-50); Mean Corpuscular HGB Conc 34.5 g/dl (31.0-37.0); Mean Corpuscular Hemoglobin 25.7 pg (25.0-35.0); Mean Corpuscular Volume 74 fL (80-100); Monocytes # (Auto) 0.5 Thou/mm3 (0.0-0.8); Monocytes % (Auto) 8 % (0-12); Neutrophils # (Auto) 3.6 Thou/mm3 (1.8-7.7); Neutrophils % (Auto) 61 % (37-80); Nucleated Red Blood Cell % 0 /100 WBC (0); Platelet Count 185 Thou/mm3 (140-440); RDW Standard Deviation 39.4 fL (36.4-46.3); Red Blood Count 3.04 Miln/mm3 (4.00-5.20); Reticulocyte % (Auto) 0.7 % (0.5-1.5); Reticulocyte Absolute Auto 22.2 Biln/L (25.0-75.0); Reticulocyte Hgb Content 28.9 pg (28.0-35.0); White Blood Count 5.9 Thou/mm3 (3.6-11.0)
[2024-07-11 06:12] LABS: Hemoglobin 7.8 g/dL (12.0-16.0)
[2024-07-11 06:14] LABS: Iron 36 mcg/dL (50-170); Percent Iron Saturation 15 % (20-55); Total Iron Binding Capacity 230 mcg/dL (250-425); Unsaturated Iron Binding 194 (225-295)
[2024-07-11 06:30] LABS: Sed Rate (ESR) 28 mm/hr (0-30)
[2024-07-11 06:38] LABS: Alanine Aminotransferase < 7 U/L (10-49); Albumin, Serum 3.4 gm/dL (3.5-5.0); Albumin/Globulin Ratio 1.1 (1.2-2.2); Alkaline Phosphatase 63 U/L (46-116); Anion Gap 10 (7-16); Aspartate Amino Transferase < 10 U/L (0-34); BUN/Creatinine Ratio 15 Ratio (12-20); Bilirubin,Total 0.6 mg/dL (0.3-1.2); Blood Urea Nitrogen 48 mg/dL (9-23); C-Reactive Protein < 0.5 mg/dL (0.0-0.9); Calcium 10.9 mg/dL (8.3-10.6); Calcium (Corrected) 11.4 mg/dL (8.5-10.1); Carbon Dioxide 26.8 mMol/L (20.0-31.0); Chloride 103 mMol/L (98-107); Creatinine (Component) 3.2 mg/dL (0.6-1.3); Estimated Creatinine Clearance 17.4 mL/min (>60); Globulin 3.2 gm/dL (2.3-3.5); Glucose 167 mg/dL (74-106); LDH (Lactate Dehydrogenase) 120 U/L (120-246); Magnesium 1.6 mg/dL (1.6-2.6); Osmolality,Calculated 296 (275-295); Potassium 3.6 mMol/L (3.4-5.1); Sodium 140 mMol/L (136-145); Total Protein 6.6 gm/dL (5.7-8.2); eGFR 16 See Note
[2024-07-11 07:07] LABS: Path Review Blood Smear Sent to Pathologist
[2024-07-11] MEDS: INSULIN LISPRO (AdmeLOG) 1 UNIT/0.01 ML UNIT SC ×3 (07:28→17:12)
[2024-07-11] MEDS: PANTOPRAZOLE INJ 40 MG VIAL IV (08:40)
[2024-07-11] MEDS: SODIUM CHLORIDE 0.45 % 1,000 ML 100 ML IV (08:41)
[2024-07-11] MEDS: ferumoxytoL (NON-ESRD) 510 MG in SODIUM CHLORIDE 0.9% 100 ML 234 MG IV (08:41)
[2024-07-11] MEDS: METOPROLOL TARTRATE 25 MG TABLET 100 MG PO ×2 (08:42→21:13)
[2024-07-11] MEDS: amLODIPine BESYLATE 5 MG TABLET 10 MG PO (08:43)
--- NOTE | 2024-07-11 09:20 | PC.SS ---
Follow up note: On IV fluids. Cancer work up.
[2024-07-11] MEDS: EPOETIN ALFA INJ 1,000 UNIT/0.05 ML UNIT 10000 UNIT SC (09:29)
[2024-07-11 10:04] LABS: Ferritin 137 ng/mL (7.3-270.7)
--- NOTE | 2024-07-11 10:13 | ESPR_ITS ---
Documentation for date of: 07/11/24 Subjective Subjective Interval history: Ms. Chandra is a 58-year-old female from home released with past medical history of hypertension, diabetes, aortic nodules presented to the emergency department yesterday complaining of abdominal discomfort associate with nausea vomiting and loose stools. Patient goes to [facility]. She has a taken to primary care doctor who recommended ER admission. In the emergency department patient was noted to be significantly dehydrated. Patient has been taking the Trulicity, Synjardy, losartan/hydrochlorothiazide, metoprolol, Augmentin, Tessalon Perles, amlodipine Patient was also taking ibuprofen 3 tablets 3 times daily for the last 3 weeks for her back pain. Apparently she has been having decreased urinary output. Patient also has rash in the body for the last couple of weeks. In the ED blood pressure 160/80, heart rate 110, EKG showed short QTc intervals. Sodium 138, potassium 3.7, BUN 64, creatinine 3.9, GFR 13, blood sugar 127, calcium 12.9, LFTs normal, albumin 4.6 urinalysis showed glucosuria, significant pyuria. Urine sodium 37.3 abdominal ultrasound showed splenomegaly with liver cirrhosis abdominal CT scan showed liver cirrhosis and splenomegaly. No hydronephrosis. Renal ultrasound showed sized kidneys with no hydronephrosis. Patient was admitted to telemetry and nephrology consultation requested for SANTOS and hypercalemia. Patient was started on IV fluids. 07/11/2024: Patient seen and examined at bedside, resting comfortably. Denies fevers, chills, SOB, chest pain, nausea, vomiting. Hg 7.8. Sodium 140, potassium 3.6. BUN 48, creatinine 3.2, eGFR 16. Corrected calcium 11.4. UA showed creatinine 73, microalbumin 186, Na 37.3. Continue IVF. Exam Vital Signs Temp Pulse Resp BP Pulse Ox O2 Del Method 97.2 F 69 18 144/69 H 96 Room Air 07/11/24 08:00 07/11/24 08:43 07/11/24 08:00 07/11/24 08:43 07/11/24 08:00 07/11/24 08:00 Narrative Exam PE: Gen: Well-developed and well-nourished. HEENT: NCAT, PERRLA, EOMI, MMM, anicteric conjunctivae. CVS: normal S1 and S2. RRR. No M/R/G. Resp: CTA B/L. No rhonchi, rales, crackles or wheezing. Abd: soft, non-tender, non-distended. MSK: Good ROM in BUE & BLE. No edema or rash. Neuro: CN II-XII grossly intact. Strength 5/5 in BUE & BLE. Alert and oriented x3. Psych: appropriate mood and affect. Objective Labs 07/11/24 04:44 07/11/24 04:44 Labs: Laboratory Results - last 24 hr 07/09/24 07/10/24 07/10/24 20:58 11:10 17:40 WBC RBC Hgb Hct MCV MCH MCHC RDW Std Deviation Plt Count Neut % (Auto) Lymph % (Auto) [place] % (Auto) Eos % (Auto) Baso % (Auto) Neut # (Auto) Lymph # (Auto) [place] # (Auto) Eos # (Auto) Baso # (Auto) Immature Gran # (Auto) Absolute Nucleated RBC Immature Gran % Nucleated RBC % Smear Path Review ESR Retic Count (auto) Absolute Retic Immature Retic Fraction Retic Hgb Content CHr Sodium 138 Potassium 4.0 D Chloride 101 Carbon Dioxide 27.6 Anion Gap 9 BUN 54 H Creatinine 3.3 H Estim Creat Clear Calc 17.2 L eGFR 16 L BUN/Creatinine Ratio 16 Glucose 169 H Calculated Osmolality 294 Calcium 12.0 H Corrected Calcium 12.0 H Phosphorus 4.1 Magnesium Iron TIBC Iron Saturation Unsat Iron Binding Ferritin Total Bilirubin AST ALT Alkaline Phosphatase Lactate Dehydrogenase C-Reactive Prot, Quant Total Protein Albumin 4.0 Globulin Albumin/Globulin Ratio PTH Intact 11.1 L Stool for White Cells Negative 07/11/24 07/11/24 04:44 04:44 WBC 5.9 RBC 3.04 L Hgb 7.8 L Hct 22.6 L MCV 74 L MCH 25.7 MCHC 34.5 RDW Std Deviation 39.4 Plt Count 185 Neut % (Auto) 61 Lymph % (Auto) 24 [place] % (Auto) 8 Eos % (Auto) 6 Baso % (Auto) 1 Neut # (Auto) 3.6 Lymph # (Auto) 1.4 [place] # (Auto) 0.5 Eos # (Auto) 0.3 Baso # (Auto) 0.0 Immature Gran # (Auto) 0.01 H Absolute Nucleated RBC 0.00 Immature Gran % 0 Nucleated RBC % 0 Smear Path Review Sent to Pathologist Cancelled ESR 28 Retic Count (auto) 0.7 Absolute Retic 22.2 L Immature Retic Fraction 7.6 Retic Hgb Content CHr 28.9 Sodium 140 Potassium 3.6 Chloride 103 Carbon Dioxide 26.8 Anion Gap 10 BUN 48 H Creatinine 3.2 H Estim Creat Clear Calc 17.4 L eGFR 16 L BUN/Creatinine Ratio 15 Glucose 167 H Calculated Osmolality 296 H Calcium 10.9 H Corrected Calcium 11.4 H Phosphorus Magnesium 1.6 Iron 36 L TIBC 230 L Iron Saturation 15 L Unsat Iron Binding 194 L Ferritin 137 Total Bilirubin 0.6 AST < 10 ALT < 7 L Alkaline Phosphatase 63 Lactate Dehydrogenase 120 C-Reactive Prot, Quant < 0.5 Total Protein 6.6 Albumin 3.4 L D Globulin 3.2 Albumin/Globulin Ratio 1.1 L PTH Intact Stool for White Cells Quality Measures Quality Measures VTE prophylaxis Assessment & Plan Assessment Current Active Medications: Generic Name Dose Route Start Last Admin Trade Name Freq PRN Reason Stop Dose Admin Acetaminophen 650 mg 07/09/24 22:28 07/10/24 23:23 Acetaminophen 325 Mg Tablet PO 08/08/24 22:27 650 mg Q6H PRN Administration Pain (1-3) & Fever >101.5 Hydrocodone Bitart/Acetaminophen 1 tab 07/09/24 23:02 Hydrocodone/Apap 5/325 Tablet PO 07/14/24 23:01 Q6HR PRN PAIN SCALE 4-10(Mod-Sev Amlodipine Besylate 10 mg 07/10/24 09:00 07/11/24 08:43 Amlodipine Besylate 5 Mg Tablet PO 08/09/24 08:59 10 mg DAILY JAYRO Administration Dextrose 25 ml 07/09/24 23:00 Dextrose 50%-Water Inj 50 Ml Syringe IV 08/08/24 22:59 Q15MIN PRN BG 50-70 responsive npo pt Dextrose 50 ml 07/09/24 23:00 Dextrose 50%-Water Inj 50 Ml Syringe IV 08/08/24 22:59 Q15MIN PRN BG <50 OR BG <70 & pt unresponsive Glucagon 1 mg 07/09/24 23:00 Glucagon Inj 1 Mg Vial IM Q15MIN PRN BG <70, and no IV access Sodium Chloride 1,000 mls @ 100 mls/hr 07/11/24 06:44 07/11/24 08:41 Ns 0.45% IV 07/11/24 16:43 100 mls/hr .Q10H ONE Administration Insulin Human Lispro 0 unit 07/10/24 07:30 07/11/24 07:28 Insulin Lispro (Admelog) 1 Unit/0.01 Ml Unit SC 08/09/24 07:29 1 unit AC JAYRO Administration Protocol Metoprolol Tartrate 100 mg 07/10/24 09:00 07/11/24 08:42 Metoprolol Tartrate 25 Mg Tablet PO 08/09/24 08:59 100 mg BID JAYRO Administration Ondansetron HCl 4 mg 07/09/24 22:28 07/10/24 23:23 Ondansetron Inj 2 Mg/Ml Inj 2 Ml IV 08/08/24 22:27 4 mg Q6H PRN Administration NAUSEA OR VOMITING Protocol Pantoprazole Sodium 40 mg 07/10/24 14:45 07/11/24 08:40 Pantoprazole Inj 40 Mg Vial IV 08/09/24 14:44 40 mg QDAY JAYRO Administration Plan 58-year-old Upper Sor[place] speaking female with past medical history of hypertension, type 2 diabetes on insulin, history of thyroid nodules presented to the ED on 07/09/2024 was admitted for SANTOS on CKD and hypercalcemia. #SANTOS, presrenal #Hypercalcemia SANTOS secondary to prerenal azotemia. Patient has been taking the metformin, hydrochlorothiazide, losartan, ibuprofen in the setting of nausea, vomiting and dehydration. Renal ultrasound, CT did not show any hydronephrosis. Hypercalcemia probably related to dehydration. PTH 11.3 appropriate for hypercalcemia. Patient clinically dehydrated on presentation, IVF initiated. UA shows creatinine 73, microalbumin 186, Na 37.3. - IVF: / NS 100ml/hour - strict I&O's - avoid nephrotoxins, including NSAIDS - monitor daily renal function and calcium levels - encourage oral hydration #Microcytic anemia #Splenomegaly #Diarrhea #Type 2 insulin-dependent diabetes mellitus #Hypertension #Thyroid nodule by history #Rash Management as per primary team DVT prophylaxis: SCDs GI prophylaxis: Not indicated at this time Diet: Renal CODE STATUS: Full Lines: [place] cath, PIV Thank you for allowing us to participate in the care of this patient. Plan of care discussed with attending Dr. Bradley. Stephen Valenzuela MD PGY-1 Attending Provider Attestation/Addendum Patient currently seen and examined with resident physician Dr. Valenzuela. Note reviewed, agree with findings and recommendations. Cr, Ca are better. Spoke to daughter- continue IVF, po fluids
[2024-07-11] MEDS: CALCITONIN, SALMON SYNTH INJ 1 UNIT/0.005 ML VIAL 230 UNIT SC (11:28)
[2024-07-11 11:47] LABS: AFP Non-Pregnant < 1.30 ng/mL (<8.10); Hepatitis B Core Antibody IgM Non Reactive (Non React); Hepatitis B Surface Ab NonReact(Not Immune) (Immune); Hepatitis B Surface Antigen Non Reactive (Non React); Hepatitis C Antibody Non Reactive (Non React); Vitamin D 25 Hydroxy Total 9.3 ng/mL (7.3-40.2)
--- NOTE | 2024-07-11 12:13 | XR_ITS ---
Examination: Lumbar spine 3 views Technique one AP lateral coned lateral lower lumbar spine 3 views Exam date and time: July 11, 2024 1431 hours INDICATIONS: Onset back pain today. FINDINGS: Moderate osteopenia. No lumbar fracture. Diffuse [id number] lumbar disc narrowing most prominent L4-L5 Mild lumbar spondylosis No spondylolisthesis IMPRESSION: Diffuse [id number] lumbar degenerative disc disease
--- NOTE | 2024-07-11 12:13 | XR_ITS ---
Examination: Thoracic spine 3 views Technique one AP lateral coned lateral upper dorsal spine 3 views Exam date and time: July 11, 2024 1430 hours INDICATIONS: Back pain today. FINDINGS: [id number] diffuse thoracic degenerative disc disease No thoracic fracture Mild thoracic spondylosis IMPRESSION: Mild to moderate diffuse thoracic degenerative disc disease
--- NOTE | 2024-07-11 12:41 | PC.SS ---
SS met with patient regarding her d/c plan.? Pt is alert/oriented.? Pt was admitted for Acute Kidney Injury.? Pt confirmed demographic and contact information is correct on facesheet.? Pt resides with family (dad, aunt, and dtr).? Pt has a 3 wheel walker which she uses when needed.? Pt is ok with all ADLs.? Pt named her sister, Edith Chandra medical decision maker if she is unable.? Patient?s choice is to return home upon d/c.? Pt states she is diabetic, has glucometer, and test strips.? Pt states she is not on dialysis.? Pt has a scheduled appointment with PCP on 09-04-24 at 10am.? Patient's sister will provide transportation home. D/C plan:? Return home Next of Kin:? Edith Chandra, sister, phone# [phone] PCP:? Dr. Valeria Marquez Address:? Correct on facesheet
[2024-07-11] MEDS: ONDANSETRON INJ 2 MG/ML INJ 2 ML 4 MG IV ×2 (14:36→21:12)
--- NOTE | 2024-07-11 16:40 | ESPR_ITS ---
Documentation for date of: 07/11/24 Subjective Subjective Interval history: Patient examined at bedside today. No acute overnight events. Patient reports he is doing well. She is a bit sleepy at this time. He denies any chest pain or shortness of breath. Is wondering how her kidneys are doing. She has not had a bowel movement today. No other complaints this time Exam Vital Signs Temp Pulse Resp BP Pulse Ox O2 Del Method 97.0 F 71 18 140/69 H 97 Room Air 07/11/24 16:00 07/11/24 16:00 07/11/24 16:00 07/11/24 16:00 07/11/24 16:00 07/11/24 16:00 Narrative Exam General: AAOx3, NAD, Faroese speaking female HEENT: Moist mucous membranes, conjunctiva clear, EOMI, PERRLA, poor dentition Cardiovascular: S1, S2, radial pulses +2 bilat, RRR Pulmonary: CTAB bilat no cough, no wheezing GI: No tenderness to light or deep palpitation, no guarding, rigidity, rebound tenderness or distension Extremities: No presence of trace or pitting edema in lower extremities bilaterally, dorsalis pedis pulses +2 bilaterally, multiple spots of rash that is flat no papules or pustules, some ulcerations erythematous with symmetric and even borders seen on arms back and chest Neuro: AAOx3, no focal motor or sensory deficits in the UE or LE bilat Psych: Good judgement, thought and behavior Objective Labs 07/14/24 05:05 07/14/24 05:05 Labs: Laboratory Results - last 24 hr 07/09/24 07/10/24 07/11/24 20:58 17:40 04:44 WBC 5.9 RBC 3.04 L Hgb 7.8 L Hct 22.6 L MCV 74 L MCH 25.7 MCHC 34.5 RDW Std Deviation 39.4 Plt Count 185 Neut % (Auto) 61 Lymph % (Auto) 24 [place] % (Auto) 8 Eos % (Auto) 6 Baso % (Auto) 1 Neut # (Auto) 3.6 Lymph # (Auto) 1.4 [place] # (Auto) 0.5 Eos # (Auto) 0.3 Baso # (Auto) 0.0 Immature Gran # (Auto) 0.01 H Absolute Nucleated RBC 0.00 Immature Gran % 0 Nucleated RBC % 0 Smear Path Review Sent to Pathologist ESR Retic Count (auto) Absolute Retic Immature Retic Fraction Retic Hgb Content CHr Sodium 138 Potassium 4.0 D Chloride 101 Carbon Dioxide 27.6 Anion Gap 9 BUN 54 H Creatinine 3.3 H Estim Creat Clear Calc 17.2 L eGFR 16 L BUN/Creatinine Ratio 16 Glucose 169 H Calculated Osmolality 294 Calcium 12.0 H Corrected Calcium 12.0 H Phosphorus 4.1 Magnesium Iron TIBC Iron Saturation Unsat Iron Binding Ferritin Total Bilirubin AST ALT Alkaline Phosphatase Lactate Dehydrogenase C-Reactive Prot, Quant Total Protein Albumin 4.0 Globulin Albumin/Globulin Ratio Tumor Marker AFP 25-OH Vitamin D Total PTH Intact 11.1 L Hep Bs Antigen Hep Bs Antibody Hep B Core IgM Ab Hepatitis C Antibody 07/11/24 07/11/24 04:44 04:44 WBC RBC Hgb Hct MCV MCH MCHC RDW Std Deviation Plt Count Neut % (Auto) Lymph % (Auto) [place] % (Auto) Eos % (Auto) Baso % (Auto) Neut # (Auto) Lymph # (Auto) [place] # (Auto) Eos # (Auto) Baso # (Auto) Immature Gran # (Auto) Absolute Nucleated RBC Immature Gran % Nucleated RBC % Smear Path Review Cancelled ESR 28 Retic Count (auto) 0.7 Absolute Retic 22.2 L Immature Retic Fraction 7.6 Retic Hgb Content CHr 28.9 Sodium 140 Potassium 3.6 Chloride 103 Carbon Dioxide 26.8 Anion Gap 10 BUN 48 H Creatinine 3.2 H Estim Creat Clear Calc 17.4 L eGFR 16 L BUN/Creatinine Ratio 15 Glucose 167 H Calculated Osmolality 296 H Calcium 10.9 H Corrected Calcium 11.4 H Phosphorus Magnesium 1.6 Iron 36 L TIBC 230 L Iron Saturation 15 L Unsat Iron Binding 194 L Ferritin 137 Total Bilirubin 0.6 AST < 10 ALT < 7 L Alkaline Phosphatase 63 Lactate Dehydrogenase 120 C-Reactive Prot, Quant < 0.5 Total Protein 6.6 Albumin 3.4 L D Globulin 3.2 Albumin/Globulin Ratio 1.1 L Tumor Marker AFP < 1.30 25-OH Vitamin D Total 9.3 Cancelled PTH Intact Hep Bs Antigen Non Reactive Hep Bs Antibody NonReact(Not Immune) L Hep B Core IgM Ab Non Reactive Hepatitis C Antibody Non Reactive Quality Measures Quality Measures VTE prophylaxis Assessment & Plan Assessment Current Active Medications: Generic Name Dose Route Start Last Admin Trade Name Freq PRN Reason Stop Dose Admin Acetaminophen 650 mg 07/09/24 22:28 07/10/24 23:23 Acetaminophen 325 Mg Tablet PO 08/08/24 22:27 650 mg Q6H PRN Administration Pain (1-3) & Fever >101.5 Hydrocodone Bitart/Acetaminophen 1 tab 07/09/24 23:02 Hydrocodone/Apap 5/325 Tablet PO 07/14/24 23:01 Q6HR PRN PAIN SCALE 4-10(Mod-Sev Amlodipine Besylate 10 mg 07/10/24 09:00 07/11/24 08:43 Amlodipine Besylate 5 Mg Tablet PO 08/09/24 08:59 10 mg DAILY JAYRO Administration Dextrose 25 ml 07/09/24 23:00 Dextrose 50%-Water Inj 50 Ml Syringe IV 08/08/24 22:59 Q15MIN PRN BG 50-70 responsive npo pt Dextrose 50 ml 07/09/24 23:00 Dextrose 50%-Water Inj 50 Ml Syringe IV 08/08/24 22:59 Q15MIN PRN BG <50 OR BG <70 & pt unresponsive Glucagon 1 mg 07/09/24 23:00 Glucagon Inj 1 Mg Vial IM Q15MIN PRN BG <70, and no IV access Sodium Chloride 1,000 mls @ 100 mls/hr 07/11/24 06:44 07/11/24 08:41 Ns 0.45% IV 07/11/24 16:43 100 mls/hr .Q10H ONE Administration Insulin Human Lispro 0 unit 07/10/24 07:30 07/11/24 11:33 Insulin Lispro (Admelog) 1 Unit/0.01 Ml Unit SC 08/09/24 07:29 1 unit AC JAYRO Administration Protocol Metoprolol Tartrate 100 mg 07/10/24 09:00 07/11/24 08:42 Metoprolol Tartrate 25 Mg Tablet PO 08/09/24 08:59 100 mg BID JAYRO Administration Ondansetron HCl 4 mg 07/09/24 22:28 07/11/24 14:36 Ondansetron Inj 2 Mg/Ml Inj 2 Ml IV 08/08/24 22:27 4 mg Q6H PRN Administration NAUSEA OR VOMITING Protocol Pantoprazole Sodium 40 mg 07/10/24 14:45 07/11/24 08:40 Pantoprazole Inj 40 Mg Vial IV 08/09/24 14:44 40 mg QDAY JAYRO Administration Plan Assessment Brijesh is a 58-year-old Faroese speaking female with past medical history of hypertension, type 2 diabetes on insulin, history of thyroid nodules presented to the ED on 07/09/2024 was admitted for SANTOS on CKD and hypercalcemia. #SANTOS on CKD, improving, #Hypercalcemia, improving Patient presented with BUN 64, creatinine 3.9, has had GI losses for the past couple of weeks Patient reports that she has been taking ibuprofen 600 mg 3 times a day for a couple of weeks now I believe this SANTOS is multifactorial including intrarenal and prerenal causes due to poor oral intake and kidney damage from ibuprofen Renal ultrasound does not show any stone and at this time we can rule out postrenal causes Patient's GFR 14, creatinine 3.6 as this is slightly improving with fluid Patient's corrected hypercalcemia is at 12.2 We will need to follow-up PTH to decipher if it is PTH independent or dependent hypercalcemia Considering patient's recent weight loss of 50 pounds, malignancy will need to be higher in the differential if this is PTH independent and pt has strong family cancer history Patient does endorse that she has lost 50 pounds, was on Victoza and then put on Trulicity close last month, however patient does use insulin which can predispose to weight gain and the GLP's decrease this much weight loss within a year typically Renal ultrasound shows no hydronephrosis or calculi. Baseline creatinine 1.2, GFR 52 in March 2024. Urine sodium 37.3, potassium 32, chloride 33.8, calcium 7 Urine microalbumin 255 FeNa 1.2 07/11: Creatinine 3.2, calcium 11.4 PTH 11.1, which is low as this indicates is a PTH independent process. As the hypercalcemia can be medication induced multifactorial however I believe it is appropriate to rule out other diagnoses including granulomatosis disease, multiple myeloma, other malignancies, FHH, milk-alkali syndrome, vitamin D toxicity Patient does take hydrochlorothiazide with, losartan as this could have contributed hypercalcemia in addition to an SANTOS, however will need to further workup Will continue with fluids, give additional calcitonin Plan: ? Half NS 100 cc/hour ? Calcitonin IV 4 mg/kg x1 today ? Nephrology consulted, appreciate recommendations ? Strict intake and output, Montes De Oca catheter ? Trend CMP ? Vitamin D level #Iron deficiency anemia Patient has been dealing with chronic anemia, current hemoglobin 8.1, MCV 77 07/11: Hemoglobin 7.8 today Pending FOBT Peripheral blood smear shows microcytic iron deficiency anemia Ferritin 137; Iron 36 Usually ferritin would be low in iron deficiency anemia Plan: ? Trend CBC ? Transfusion protocol hemoglobin below 7 ? Avoiding any NSAIDs ? SCDs ? Protonix 40 mg daily ? Follow-up FOBT ? Feraheme and Epogen x 1 #Cirrhosis vs hepatocellular disease #Splenomegaly #Diarrhea Splenomegaly seen on previous CT CT shows significant splenomegaly Patient complains of diarrhea since the last 2 days. Was given Augmentin recently in March 2024 in ED I have high suspicion for malignancy considering patient's weight loss, anemia, splenomegaly, and cancer history including lymphoma LDH normal; ESR and CRP unremarkable Abdominal ultrasound shows cirrhosis versus hepatocellular disease, absent gallbladder, no CBD dilation I am unsure why this patient possible cirrhosis, no EtOH or CAMPO component at this time Plan: ? Follow stool culture ? Follow-up stool WBC, fecal calprotectin ordered ? Follow up hepatitis panel and AFP #Type 2 insulin-dependent diabetes mellitus Basaglar 28 units at home as well as Synjardy 07/999 A1c of 7.5 Plan: ? Sliding scale insulin ? Hypoglycemic protocol in place ? Blood sugar checks with meals ? Will hold on adding patient's insulin regimen from home at home #Hypertension Patient on amlodipine 5 mg, metoprolol tartrate 100 mg twice daily, losartan?HCTZ 100/25 mg tablet Patient will likely need change of blood pressure medicines upon discharge Plan: ? Hold on resuming blood pressure medicines ? Holding ARIEL/ARB in setting of SANTOS #Thyroid nodule, 25mm CTA in March shows 25mm thyroid nodule and R large thyroid lobe TSH and free T4 unremarkable Plan: ? Thyroid ultrasound #Back pain Chronic Patient may have some underlying malignancy component with back pain Plan: ? Lumbar and thoracic spine x-ray #Rash DDx: Nummular Eczema, Drug Exanthem, infectious, Malignancy Has been going on for about 7 months ago Patient is originally [place] as this could possibly be due to latent infection Could be a drug exanthem related to interstitial nephritis Patient does report that this rash has been there for 7 months now and the increased ibuprofen use was going on for about 2 months so this is less likely Rash appears to be in multiple spots on the body including arm chest and back some appear to be smaller than others, erythematous plaques no papules, mild ulceration with even and symmetric borders Has been itchy before in the past Plan: ? Consider IBIS ? Monitor for any changes ? Consider topical cream or antihistamines for rash ? Will consider punch biopsy #Health Maintenance Disposition: Telemetry DVT prophylaxis: SCDs GI prophylaxis: Protonix Diet: Carb low CODE STATUS: Full Patient seen and care discussed with my attending physician, Dr. Alex Escobar, PGY-1 Attending Provider Attestation/Addendum I have examined the patient, reviewed labs and imaging findings, discussed the case with the resident(s), and reviewed entered orders. I agree with the plan of care as outlined in this note, with these additional summaries/recommendations: #SANTOS on CKD: SANTOS most likely secondary to prerenal azotemia from severe dehydration versus medication induced. Patient receiving IV fluids and will continue to monitor renal function. Overall improving and Cr now 3.2 from 3.6. Avoid nephrotoxic agents. Appreciate nephrology recs. Avoid NSAIDs moving forward # Hypercalcemia: Medication induced versus renal disease versus primary hyperparathyroidism versus malignancy. PTH low indicating appropriate response. IV fluids and we will give a dose of calcitonin today. Will continue to treat as needed. # Weight loss # Abdominal pain Patient has had significant weight loss over the last year. She appears to be up-to-date on mammograms but is pending referral for outpatient colonoscopy. Previous abdomen/pelvis CT showed marked splenomegaly with multiple splenic lesions with differentials including lymphoma, Hodgkin's disease, and less likely splenic abscess. Repeat CT abdomen and pelvis did not reveal any splenic lesions although was significant for possible cirrhosis. Patient will need outpatient referral to GI. Pending FOBT and if positive we will consult GI inpatient. Acute hep panel ordered # Rash: Has multiple mild demarcated, circumferential, erythematous, and itchy rashes on upper trunk and extremities and lower back. Patient reports these have been present for approximately 7 months. We will continue to monitor and see if rash worsens. Order skin punch biopsy #DMII: Continue basal and bolus insulin. Accu-Cheks. A1c. # Primary hypertension: Okay to continue home amlodipine and metoprolol. Hold losartan/hydrochlorothiazide in the setting of SANTOS and hypercalcemia. Dr. Alex MD
--- NOTE | 2024-07-11 18:18 | XR_ITS ---
Examination: Thyroid sonography complete TECHNIQUE: Breen scale sonographic images thyroid Exam date and time: July 11, 2024 10:00 AM INDICATIONS: Thyroid nodule noted on CT chest examination April 02, 2024 FINDINGS: Right thyroid 4.9 cm Upper pole nodule 1.5 x 1.2 cm Midpole nodule 3.0 x 2.7 cm Left thyroid 3.8 cm Upper pole nodule 6 x 4 mm Lower pole nodule 6 x 6 mm Smaller bilateral thyroid nodules IMPRESSION: Bilateral thyroid nodules Consider ultrasound-guided fine-needle aspiration of the largest nodule in the mid right thyroid lobe
[2024-07-12] VITALS (12 sets, daily range): BP systolic 126–153; BP diastolic 60–86; PULSE 63–80; RESP 16–97; TEMP 36.3–36.8; O2SAT 93–99; BMI 19.1
[2024-07-12 06:23] LABS: Basophils % (Auto) 1 % (0-2.5); Eosinophils # (Auto) 0.2 Thou/mm3 (0.0-0.5); Eosinophils % (Auto) 4 % (0-10); Hematocrit 22.7 % (36.0-46.0); Immature Granulocytes % (Auto) 0 % (0-0); Immature Granulocytes Auto 0.02 Thou/mm3 (0.00-0.00); Lymphocytes # (Auto) 1.4 Thou/mm3 (1.0-4.8); Lymphocytes % (Auto) 23 % (10-50); Mean Corpuscular HGB Conc 33.9 g/dl (31.0-37.0); Mean Corpuscular Hemoglobin 25.5 pg (25.0-35.0); Mean Corpuscular Volume 75 fL (80-100); Monocytes # (Auto) 0.5 Thou/mm3 (0.0-0.8); Monocytes % (Auto) 8 % (0-12); Neutrophils # (Auto) 3.9 Thou/mm3 (1.8-7.7); Neutrophils % (Auto) 64 % (37-80); Nucleated Red Blood Cell % 0 /100 WBC (0); Platelet Count 184 Thou/mm3 (140-440); RDW Standard Deviation 39.9 fL (36.4-46.3); Red Blood Count 3.02 Miln/mm3 (4.00-5.20); White Blood Count 6.1 Thou/mm3 (3.6-11.0)
[2024-07-12 06:26] LABS: Hemoglobin 7.7 g/dL (12.0-16.0)
[2024-07-12 06:50] LABS: Alanine Aminotransferase < 7 U/L (10-49); Albumin, Serum 3.5 gm/dL (3.5-5.0); Albumin/Globulin Ratio 1.1 (1.2-2.2); Alkaline Phosphatase 61 U/L (46-116); Anion Gap 10 (7-16); Aspartate Amino Transferase < 8 U/L (0-34); BUN/Creatinine Ratio 13 Ratio (12-20); Bilirubin,Total 0.6 mg/dL (0.3-1.2); Blood Urea Nitrogen 41 mg/dL (9-23); Calcium 10.6 mg/dL (8.3-10.6); Carbon Dioxide 24.7 mMol/L (20.0-31.0); Chloride 104 mMol/L (98-107); Creatinine (Component) 3.1 mg/dL (0.6-1.3); Estimated Creatinine Clearance 17.8 mL/min (>60); Globulin 3.3 gm/dL (2.3-3.5); Glucose 127 mg/dL (74-106); Magnesium 1.3 mg/dL (1.6-2.6); Osmolality,Calculated 289 (275-295); Potassium 3.3 mMol/L (3.4-5.1); Sodium 139 mMol/L (136-145); Total Protein 6.8 gm/dL (5.7-8.2); eGFR 17 See Note
[2024-07-12] MEDS: PANTOPRAZOLE INJ 40 MG VIAL IV (08:53)
[2024-07-12] MEDS: ONDANSETRON INJ 2 MG/ML INJ 2 ML 4 MG IV (08:54)
[2024-07-12] MEDS: amLODIPine BESYLATE 5 MG TABLET 10 MG PO (08:55)
[2024-07-12] MEDS: Magnesium Sulfate 4 GM Ivpb 4 GM/50 ML BAG IV (08:55)
[2024-07-12] MEDS: POTASSIUM CHL 10 mEq IVPB 10 MEQ/100 ML BAG 100 MEQ IV (08:55)
[2024-07-12] MEDS: METOPROLOL TARTRATE 25 MG TABLET 100 MG PO ×2 (08:56→20:11)
--- NOTE | 2024-07-12 09:34 | PD.RESPRO ---
Documentation for date of: 07/12/24 Subjective Subjective Interval history: Ms. Chandra is a 58-year-old female from home released with past medical history of hypertension, diabetes, aortic nodules presented to the emergency department yesterday complaining of abdominal discomfort associate with nausea vomiting and loose stools. Patient goes to [facility]. She has a taken to primary care doctor who recommended ER admission. In the emergency department patient was noted to be significantly dehydrated. Patient has been taking the Trulicity, Synjardy, losartan/hydrochlorothiazide, metoprolol, Augmentin, Tessalon Perles, amlodipine Patient was also taking ibuprofen 3 tablets 3 times daily for the last 3 weeks for her back pain. Apparently she has been having decreased urinary output. Patient also has rash in the body for the last couple of weeks. In the ED blood pressure 160/80, heart rate 110, EKG showed short QTc intervals. Sodium 138, potassium 3.7, BUN 64, creatinine 3.9, GFR 13, blood sugar 127, calcium 12.9, LFTs normal, albumin 4.6 urinalysis showed glucosuria, significant pyuria. Urine sodium 37.3 abdominal ultrasound showed splenomegaly with liver cirrhosis abdominal CT scan showed liver cirrhosis and splenomegaly. No hydronephrosis. Renal ultrasound showed sized kidneys with no hydronephrosis. Patient was admitted to telemetry and nephrology consultation requested for SANTOS and hypercalemia. Patient was started on IV fluids. 07/11/2024: Patient seen and examined at bedside, resting comfortably. Denies fevers, chills, SOB, chest pain, nausea, vomiting. Hg 7.8. Sodium 140, potassium 3.6. BUN 48, creatinine 3.2, eGFR 16. Corrected calcium 11.4. UA showed creatinine 73, microalbumin 186, Na 37.3. Continue IVF. 07/12/2024: Patient seen examined at bedside, resting comfortably. Denies fever, chills, nausea, vomiting, shortness of breath. Does endorse mild chest pain, worse with inspiration, on exam pain noted to be epigastric and reproducible on palpation, patient has been constipated. Will add Colace. Sodium 139, potassium 3.3, bicarb 24.7, BUN 41, creatinine 3.1, EGFR 17. Calcium decreased to 11.0. Patient cleared for discharge from nephrology perspective, with follow-up with nephrology in 1-2 weeks. Exam Vital Signs Temp Pulse Resp BP Pulse Ox O2 Del Method 97.4 F 63 17 126/65 93 L Room Air 07/12/24 08:00 07/12/24 08:56 07/12/24 08:00 07/12/24 08:56 07/12/24 08:00 07/12/24 08:00 Narrative Exam PE: Gen: Well-developed and well-nourished. HEENT: NCAT, PERRLA, EOMI, MMM, anicteric conjunctivae. CVS: normal S1 and S2. RRR. No M/R/G. Resp: CTA B/L. No rhonchi, rales, crackles or wheezing. Abd: soft, non-distended. Mild tenderness epigastric region. Firmness in abdomen, likely constipation. MSK: Good ROM in BUE & BLE. No edema or rash. Neuro: CN II-XII grossly intact. Strength 5/5 in BUE & BLE. Alert and oriented x3. Psych: appropriate mood and affect. Objective Labs 07/14/24 05:05 07/14/24 05:05 Labs: Laboratory Results - last 24 hr 07/11/24 07/11/24 07/12/24 04:44 04:44 05:49 WBC 6.1 RBC 3.02 L Hgb 7.7 L Hct 22.7 L MCV 75 L MCH 25.5 MCHC 33.9 RDW Std Deviation 39.9 Plt Count 184 Neut % (Auto) 64 Lymph % (Auto) 23 [place] % (Auto) 8 Eos % (Auto) 4 Baso % (Auto) 1 Neut # (Auto) 3.9 Lymph # (Auto) 1.4 [place] # (Auto) 0.5 Eos # (Auto) 0.2 Baso # (Auto) 0.0 Immature Gran # (Auto) 0.02 H Absolute Nucleated RBC 0.00 Immature Gran % 0 Nucleated RBC % 0 Sodium 139 Potassium 3.3 L Chloride 104 Carbon Dioxide 24.7 Anion Gap 10 BUN 41 H Creatinine 3.1 H Estim Creat Clear Calc 17.8 L eGFR 17 L BUN/Creatinine Ratio 13 Glucose 127 H Calculated Osmolality 289 Calcium 10.6 Corrected Calcium 11.0 H Magnesium 1.3 L Ferritin 137 Total Bilirubin 0.6 AST < 8 ALT < 7 L Alkaline Phosphatase 61 Total Protein 6.8 Albumin 3.5 Globulin 3.3 Albumin/Globulin Ratio 1.1 L Tumor Marker AFP < 1.30 25-OH Vitamin D Total 9.3 Cancelled Hep Bs Antigen Non Reactive Hep Bs Antibody NonReact(Not Immune) L Hep B Core IgM Ab Non Reactive Hepatitis C Antibody Non Reactive Quality Measures Quality Measures VTE prophylaxis Assessment & Plan Assessment Current Active Medications: Generic Name Dose Route Start Last Admin Trade Name Freq PRN Reason Stop Dose Admin Acetaminophen 650 mg 07/09/24 22:28 07/10/24 23:23 Acetaminophen 325 Mg Tablet PO 08/08/24 22:27 650 mg Q6H PRN Administration Pain (1-3) & Fever >101.5 Hydrocodone Bitart/Acetaminophen 1 tab 07/09/24 23:02 Hydrocodone/Apap 5/325 Tablet PO 07/14/24 23:01 Q6HR PRN PAIN SCALE 4-10(Mod-Sev Amlodipine Besylate 10 mg 07/10/24 09:00 07/12/24 08:55 Amlodipine Besylate 5 Mg Tablet PO 08/09/24 08:59 10 mg DAILY JAYRO Administration Dextrose 25 ml 07/09/24 23:00 Dextrose 50%-Water Inj 50 Ml Syringe IV 08/08/24 22:59 Q15MIN PRN BG 50-70 responsive npo pt Dextrose 50 ml 07/09/24 23:00 Dextrose 50%-Water Inj 50 Ml Syringe IV 08/08/24 22:59 Q15MIN PRN BG <50 OR BG <70 & pt unresponsive Glucagon 1 mg 07/09/24 23:00 Glucagon Inj 1 Mg Vial IM Q15MIN PRN BG <70, and no IV access Magnesium Sulfate 4 gm in 50 mls @ 12.5 mls/hr 07/12/24 06:55 07/12/24 08:55 Magnesium Sulfate Ivpb IV 07/12/24 10:54 12.5 mls/hr X1 ONE Administration Potassium Chloride 10 meq in 100 mls @ 100 mls/hr 07/12/24 08:00 07/12/24 08:55 Kcl Ivpb IV 07/12/24 11:59 100 mls/hr Q1H JAYRO Administration Insulin Human Lispro 0 unit 07/10/24 07:30 07/12/24 07:39 Insulin Lispro (Admelog) 1 Unit/0.01 Ml Unit SC 08/09/24 07:29 Not Given AC JAYRO Protocol Metoprolol Tartrate 100 mg 07/10/24 09:00 07/12/24 08:56 Metoprolol Tartrate 25 Mg Tablet PO 08/09/24 08:59 100 mg BID JAYRO Administration Ondansetron HCl 4 mg 07/09/24 22:28 07/12/24 08:54 Ondansetron Inj 2 Mg/Ml Inj 2 Ml IV 08/08/24 22:27 4 mg Q6H PRN Administration NAUSEA OR VOMITING Protocol Pantoprazole Sodium 40 mg 07/10/24 14:45 07/12/24 08:53 Pantoprazole Inj 40 Mg Vial IV 08/09/24 14:44 40 mg QDAY JAYRO Administration Plan 58-year-old Thai speaking female with past medical history of hypertension, type 2 diabetes on insulin, history of thyroid nodules presented to the ED on 07/09/2024 was admitted for SANTOS on CKD and hypercalcemia. #SANTOS, presrenal #Hypercalcemia SANTOS secondary to prerenal azotemia. Patient has been taking the metformin, hydrochlorothiazide, losartan, ibuprofen in the setting of nausea, vomiting and dehydration. Renal ultrasound, CT did not show any hydronephrosis. Hypercalcemia probably related to dehydration. PTH 11.3 appropriate for hypercalcemia. Patient clinically dehydrated on presentation, IVF initiated. UA shows creatinine 73, microalbumin 186, Na 37.3. Patient has improved. Can DC IV fluids, encourage oral hydration. Patient cleared for discharge from nephrology perspective with follow-up in 1-2 weeks. - strict I&O's - avoid nephrotoxins, including NSAIDS - monitor daily renal function and calcium levels - encourage oral hydration - Cleared for discharge from nephrology perspective - Follow-up outpatient with Dr. Bradley in 1-2 weeks #Constipation Patient reports constipation with epigastric pain/tenderness. - Colace 100 mg p.o. twice daily - Further management as per primary team #Microcytic anemia #Splenomegaly #Diarrhea #Type 2 insulin-dependent diabetes mellitus #Hypertension #Thyroid nodule by history #Rash Management as per primary team DVT prophylaxis: SCDs GI prophylaxis: Not indicated at this time Diet: Renal CODE STATUS: Full Lines: Montes De Oca cath, PIV Thank you for allowing us to participate in the care of this patient. Plan of care discussed with attending Dr. Bradley. Stephen Valenzuela MD PGY-1 Attending Provider Attestation/Addendum Patient currently seen and examined with resident physician Dr. Valenzuela. Note reviewed, agree with findings and recommendations.
--- NOTE | 2024-07-12 10:04 | PC.NURSE ---
Pt verbalized IV potassium too painful, Dr. Barrera notified, changed IV potassium to liquid.
[2024-07-12] MEDS: DOCUSATE SOD 100 MG CAPSULE PO ×2 (10:08→20:12)
[2024-07-12] MEDS: POTASSIUM CHLORIDE 10% 20 MEQ/15 ML UDC 40 MEQ PO (10:09)
--- NOTE | 2024-07-12 12:00 | ESPR_ITS ---
Documentation for date of: 07/12/24 Subjective Subjective Interval history: Patient was examined bedside. Patient reported that she has persistent vomiting and she was not able to tolerate feeding for last night and today. For that reason we will keep the patient on IV fluid 60 mL/h. Vitally the patient blood pressure is 145/67 other vitals within normal limits, her hemoglobin is still low at 7.7, noticed to have potassium of 3.3 and serum creatinine of 3.1 magnesium was also 1.6 electrolytes were repleted. Spoke with the nephrology team and they said that the patient is cleared for discharge and follow-up in outpatient settings after extensive med reconciliation. Because the patient has weight loss, nausea vomiting, hypercalcemia, significant family history of malignancy we will consult the keyseating machine set up operator Dr. Clemons for possible EGD. Last bowel movement was yesterday. Exam Vital Signs Temp Pulse Resp BP Pulse Ox O2 Del Method 97.4 F 66 17 153/76 H 98 Room Air 07/12/24 11:53 07/12/24 11:53 07/12/24 11:53 07/12/24 11:53 07/12/24 11:53 07/12/24 11:53 Narrative Exam GEN: AOx3, able to speak full sentences HEENT: NC/AC, oral mucosa moist, neck supple CVS: RRR, S1-S2 present, no murmurs appreciated RESP: CTAB GI: soft,non distended, abdominal discomfort on palpation, NBS MSK: able to move all 4 limbs, no lower extremity edema SKIN: warm and dry RN SUPPORT SERVICES: CN II-XII and Sensation grossly intact. Objective Labs 07/12/24 05:49 07/12/24 05:49 Labs: Laboratory Results - last 24 hr 07/12/24 05:49 WBC 6.1 RBC 3.02 L Hgb 7.7 L Hct 22.7 L MCV 75 L MCH 25.5 MCHC 33.9 RDW Std Deviation 39.9 Plt Count 184 Neut % (Auto) 64 Lymph % (Auto) 23 [place] % (Auto) 8 Eos % (Auto) 4 Baso % (Auto) 1 Neut # (Auto) 3.9 Lymph # (Auto) 1.4 [place] # (Auto) 0.5 Eos # (Auto) 0.2 Baso # (Auto) 0.0 Immature Gran # (Auto) 0.02 H Absolute Nucleated RBC 0.00 Immature Gran % 0 Nucleated RBC % 0 Sodium 139 Potassium 3.3 L Chloride 104 Carbon Dioxide 24.7 Anion Gap 10 BUN 41 H Creatinine 3.1 H Estim Creat Clear Calc 17.8 L eGFR 17 L BUN/Creatinine Ratio 13 Glucose 127 H Calculated Osmolality 289 Calcium 10.6 Corrected Calcium 11.0 H Magnesium 1.3 L Total Bilirubin 0.6 AST < 8 ALT < 7 L Alkaline Phosphatase 61 Total Protein 6.8 Albumin 3.5 Globulin 3.3 Albumin/Globulin Ratio 1.1 L Quality Measures Quality Measures VTE prophylaxis Assessment & Plan Assessment Current Active Medications: Generic Name Dose Route Start Last Admin Trade Name Freq PRN Reason Stop Dose Admin Acetaminophen 650 mg 07/09/24 22:28 07/10/24 23:23 Acetaminophen 325 Mg Tablet PO 08/08/24 22:27 650 mg Q6H PRN Administration Pain (1-3) & Fever >101.5 Hydrocodone Bitart/Acetaminophen 1 tab 07/09/24 23:02 Hydrocodone/Apap 5/325 Tablet PO 07/14/24 23:01 Q6HR PRN PAIN SCALE 4-10(Mod-Sev Amlodipine Besylate 10 mg 07/10/24 09:00 07/12/24 08:55 Amlodipine Besylate 5 Mg Tablet PO 08/09/24 08:59 10 mg DAILY JAYRO Administration Dextrose 25 ml 07/09/24 23:00 Dextrose 50%-Water Inj 50 Ml Syringe IV 08/08/24 22:59 Q15MIN PRN BG 50-70 responsive npo pt Dextrose 50 ml 07/09/24 23:00 Dextrose 50%-Water Inj 50 Ml Syringe IV 08/08/24 22:59 Q15MIN PRN BG <50 OR BG <70 & pt unresponsive Docusate Sodium 100 mg 07/12/24 09:45 07/12/24 10:08 Docusate Sod 100 Mg Capsule PO 08/11/24 09:44 100 mg BID JAYRO Administration Protocol Glucagon 1 mg 07/09/24 23:00 Glucagon Inj 1 Mg Vial IM Q15MIN PRN BG <70, and no IV access Sodium Chloride 1,000 mls @ 60 mls/hr 07/12/24 11:31 Ns IV 08/11/24 11:30 .[id number] [facility] Insulin Human Lispro 0 unit 07/10/24 07:30 07/12/24 07:39 Insulin Lispro (Admelog) 1 Unit/0.01 Ml Unit SC 08/09/24 07:29 Not Given AC [facility] Protocol Metoprolol Tartrate 100 mg 07/10/24 09:00 07/12/24 08:56 Metoprolol Tartrate 25 Mg Tablet PO 08/09/24 08:59 100 mg BID JAYRO Administration Ondansetron HCl 4 mg 07/09/24 22:28 07/12/24 08:54 Ondansetron Inj 2 Mg/Ml Inj 2 Ml IV 08/08/24 22:27 4 mg Q6H PRN Administration NAUSEA OR VOMITING Protocol Pantoprazole Sodium 40 mg 07/10/24 14:45 07/12/24 08:53 Pantoprazole Inj 40 Mg Vial IV 08/09/24 14:44 40 mg QDAY JAYRO Administration Plan Assessment Brijesh is a 58-year-old Moh[place] speaking female with past medical history of hypertension, type 2 diabetes on insulin, history of thyroid nodules presented to the ED on 07/09/2024 was admitted for SANTOS on CKD and hypercalcemia. #SANTOS on CKD, improving, #Hypercalcemia, improving Patient presented with BUN 64, creatinine 3.9, has had GI losses for the past couple of weeks Patient reports that she has been taking ibuprofen 600 mg 3 times a day for a couple of weeks now I believe this SANTOS is multifactorial including intrarenal and prerenal causes due to poor oral intake and kidney damage from ibuprofen Renal ultrasound does not show any stone and at this time we can rule out postrenal causes Patient's GFR 14, creatinine 3.6 as this is slightly improving with fluid Patient's corrected hypercalcemia is at 12.2 We will need to follow-up PTH to decipher if it is PTH independent or dependent hypercalcemia Considering patient's recent weight loss of 50 pounds, malignancy will need to be higher in the differential if this is PTH independent and pt has strong family cancer history Patient does endorse that she has lost 50 pounds, was on Victoza and then put on Trulicity close last month, however patient does use insulin which can predispose to weight gain and the GLP's decrease this much weight loss within a year typically Renal ultrasound shows no hydronephrosis or calculi. Baseline creatinine 1.2, GFR 52 in March 2024. Urine sodium 37.3, potassium 32, chloride 33.8, calcium 7 Urine microalbumin 255 FeNa 1.2 07/12/2024 serum creatinine continues to trend down today is 3.1, calcium normalized to 10.3, vitamin D within normal limits, ultrasound of the neck showed multiple nodules however PT was within normal range as normal response for hypercalcemia. Patient was cleared from nephrology standpoint for discharge and follow-up outpatient. However overnight patient was not able to tolerate feeding and continued to have nausea and vomiting. Given the fact that the patient has severe weight loss, anemia hemoglobin 7.7 today, strong family history of gastric cancer and 1st and 2nd degree relatives will consult GI to rule out malignancy plan: ?Continue patient on NS 60 mL/h as the patient unable to tolerate feedings ? Nephrology consulted, appreciate recommendations ? Strict intake and output, [place] catheter ? Trend CMP #Nausea and vomiting #Iron deficiency anemia #Weight loss and failure to thrive Patient has been dealing with chronic anemia, current hemoglobin 7.7, MCV 77 BMI of 19.1, patient reported significant weight loss within the last year unintentionally, hypercalcemia, send family history of GI malignancy Peripheral blood smear shows microcytic iron deficiency anemia ferritin 137; Iron 36 Plan: ? Consult GI specialist Dr. Clemons for possible EGD ? Trend CBC ? Transfusion protocol hemoglobin below 7 ? Avoiding any NSAIDs ? SCDs ? Protonix 40 mg daily #Cirrhosis vs hepatocellular disease #Splenomegaly #Diarrhea Splenomegaly seen on previous CT CT shows significant splenomegaly Patient complains of diarrhea since the last 2 days. Was given Augmentin recently in March 2024 in ED I have high suspicion for malignancy considering patient's weight loss, anemia, splenomegaly, and cancer history including lymphoma LDH normal; ESR and CRP unremarkable Abdominal ultrasound shows cirrhosis versus hepatocellular disease, absent gallbladder, no CBD dilation I am unsure why this patient possible cirrhosis, no EtOH or CAMPO component at this time Fecal WBC was negative, pending stool culture and Reported, AFP was normal, chronic hepatitis viral marker was negative Plan: ? Follow stool culture #Type 2 insulin-dependent diabetes mellitus Basaglar 28 units at home as well as Synjardy 07/999 A1c of 7.5 Plan: ? Sliding scale insulin ? Hypoglycemic protocol in place ? Blood sugar checks with meals ? Will hold on adding patient's insulin regimen from home at home #Hypertension Patient on amlodipine 5 mg, metoprolol tartrate 100 mg twice daily, losartan?HCTZ 100/25 mg tablet Patient will likely need change of blood pressure medicines upon discharge Plan: ? Hold on resuming blood pressure medicines ? Holding ARIEL/ARB in setting of SANTOS #Thyroid nodule, 25mm CTA in March shows 25mm thyroid nodule and R large thyroid lobe TSH and free T4 unremarkable Plan: ?Fine-needle aspiration follow-up on discharge #Back pain Chronic Patient may have some underlying malignancy component with back pain Plan: ? Lumbar and thoracic spine x-ray #Rash DDx: Nummular Eczema, Drug Exanthem, infectious, Malignancy Has been going on for about 7 months ago Patient is originally [place] as this could possibly be due to latent infection Could be a drug exanthem related to interstitial nephritis Patient does report that this rash has been there for 7 months now and the increased ibuprofen use was going on for about 2 months so this is less likely Rash appears to be in multiple spots on the body including arm chest and back some appear to be smaller than others, erythematous plaques no papules, mild ulceration with even and symmetric borders Has been itchy before in the past Plan: ? Will recommend the patient to have skin biopsy in outpatient settings ? Consider IBIS ? Monitor for any changes ? Consider topical cream or antihistamines for rash #Health Maintenance Disposition: Telemetry DVT prophylaxis: SCDs GI prophylaxis: Protonix Diet: Carb low CODE STATUS: Full - Patient's plan and care discussed with my attending, Dr. Alex Barrera MD Internal Medicine PGY-2 Attending Provider Attestation/Addendum I attest that I was physically present for the evaluation, physical examination, lab and imaging review of the patient with the residents. I discussed the case with the residents and agree with the findings and plans of care as documented above. Odalys Anthony MD
[2024-07-12] MEDS: SODIUM CHLORIDE 0.9% 1000 ML 1,000 ML 60 ML IV (12:24)
[2024-07-12] MEDS: INSULIN LISPRO (AdmeLOG) 1 UNIT/0.01 ML UNIT SC ×2 (12:29→17:43)
--- NOTE | 2024-07-12 20:48 | PD.IMCONS ---
HPI Data of Consult Requesting Physician: Odalys Anthony MD Primary Care Provider: Hernandez Marquez PA-C Consult Narrative Reason for consult: Persistent nausea vomiting, abnormal weight loss History of present illness: 58 years old female admitted on 07/09/2024 with 3-week history of nausea vomiting abdominal pain and diarrhea CT scan of the abdomen pelvis done without contrast showed cirrhosis splenomegaly 12 mm common hepatic duct normal common bile duct and patient postcholecystectomy On 07/10/2024 patient underwent abdominal ultrasound which showed absent gallbladder Thyroid ultrasound shows multiple particularly in the right lobe of the thyroid nodules one of them is almost 6 cm x 3 cm Patient is iron saturation is 15% Hepatitis A, B, and C serologies are negative Liver panel is normal Renal function Was BUN 54 and creatinine 3.3 down to 41 and 3.1 Nephrology is on board cc:: cc: Odalys Anthony MD Review of Systems Review of Systems Systems Reviewed: All systems reviewed, normal except as documented Past Medical History Surgical History OTHER SURGICAL HX: Essential hypertension Diabetes mellitus type 1 Meds Home Medications and Allergies Home Medications ?Medication ?Instructions ?Recorded ?Confirmed ?Type amlodipine 10 mg tablet 10 mg PO DAILY 07/10/24 07/10/24 History dulaglutide 0.75 mg/0.5 mL 0.75 mg subcut .weekly 07/10/24 07/10/24 History subcutaneous pen injector (Trulicity) empagliflozin 5 mg-metformin 1,000 tab 07/10/24 History mg tablet (Synjardy) Held on 07/10/24. Instructions: side effects insulin glargine 100 unit/mL (3 28 unit subcut QAM 07/10/24 07/10/24 History mL) subcutaneous pen (Basaglar KwikPen U-100 Insulin) losartan 100 1 tab PO DAILY 07/10/24 07/10/24 History mg-hydrochlorothiazide 25 mg tablet metoprolol tartrate 100 mg tablet 100 mg PO BID 07/10/24 07/10/24 History Allergies Allergy/AdvReac Type Severity Reaction Status Date / Time No Known Allergies Allergy Verified 04/01/24 19:14 Exam Vital Signs Temp Pulse Resp BP Pulse Ox O2 Del Method 98.2 F 73 21 H 132/86 H 99 Room Air 07/12/24 20:00 07/12/24 20:22 07/12/24 20:22 07/12/24 20:11 07/12/24 20:00 07/12/24 20:00 Constitutional Comments: Chronically ill-appearing patient Routine Respiratory Exam Comments: Normal to auscultation Routine Abdominal Exam Comments: Soft nontender Results Labs 07/12/24 05:49 07/12/24 05:49 Labs: Short CBC 07/12/24 Range/Units 05:49 WBC 6.1 (3.6-11.0) Thou/mm3 Hgb 7.7 L (12.0-16.0) g/dL Hct 22.7 L (36.0-46.0) % Plt Count 184 (140-440) Thou/mm3 BMP 07/12/24 05:49 Sodium 139 Potassium 3.3 L Chloride 104 Carbon Dioxide 24.7 BUN 41 H Creatinine 3.1 H Glucose 127 H Calcium 10.6 Liver Function 07/12/24 Range/Units 05:49 Total Bilirubin 0.6 (0.3-1.2) mg/dL AST < 8 (0-34) U/L ALT < 7 L (10-49) U/L Alkaline Phosphatase 61 (46-116) U/L Albumin 3.5 (3.5-5.0) gm/dL Assessment and Plan Additional Assessment & Plan Additional Plan: # Persistent nausea vomiting # Abnormal weight loss Plan N.p.o. Consent obtained for fiberoptic esophagogastroduodenoscopy with possible biopsy possible therapeutic intervention under intravenous moderate sedation scheduled for tomorrow # Thyroid nodules particular right lobe of the thyroid Recommend ultrasound-guided biopsy of the thyroid nodule prior to discharge Free T4 TSH Free T3 Thyroglobulin antibody panel # Cirrhotic liver disease as per imaging studies etiology uncertain Complete workup ordered Other medical problems include Diabetes mellitus type 1 Essential hypertension Thank you very much for the opportunity to participate in the care of this patient
--- NOTE | 2024-07-12 22:10 | PC.NURSE ---
THOMAS Vela contacted Dr. Bauman because patient wanted to take a shower. THOMAS Vela asked if it is okay to remove leads for a while, but Dr. Bauman said due to her condition to hold off on the shower for now.
[2024-07-13] VITALS (17 sets, daily range): BP systolic 113–156; BP diastolic 50–71; PULSE 62–90; RESP 15–22; TEMP 35.9–37.5; O2SAT 94–100; BMI 19.1
[2024-07-13] MEDS: SODIUM CHLORIDE 0.9% 1000 ML 1,000 ML 60 ML IV ×2 (03:44→22:01)
[2024-07-13 06:21] LABS: Basophils % (Auto) 0 % (0-2.5); Eosinophils # (Auto) 0.3 Thou/mm3 (0.0-0.5); Eosinophils % (Auto) 3 % (0-10); Immature Granulocytes % (Auto) 0 % (0-0); Immature Granulocytes Auto 0.03 Thou/mm3 (0.00-0.00); Lymphocytes # (Auto) 1.3 Thou/mm3 (1.0-4.8); Lymphocytes % (Auto) 14 % (10-50); Mean Corpuscular HGB Conc 32.7 g/dl (31.0-37.0); Mean Corpuscular Hemoglobin 25.1 pg (25.0-35.0); Mean Corpuscular Volume 77 fL (80-100); Monocytes # (Auto) 0.7 Thou/mm3 (0.0-0.8); Monocytes % (Auto) 7 % (0-12); Neutrophils # (Auto) 6.9 Thou/mm3 (1.8-7.7); Neutrophils % (Auto) 75 % (37-80); Nucleated Red Blood Cell % 0 /100 WBC (0); Platelet Count 195 Thou/mm3 (140-440); RDW Standard Deviation 40.8 fL (36.4-46.3); Red Blood Count 3.38 Miln/mm3 (4.00-5.20); White Blood Count 9.2 Thou/mm3 (3.6-11.0)
[2024-07-13 06:22] LABS: Hemoglobin 8.5 g/dL (12.0-16.0)
[2024-07-13 07:10] LABS: Partial Thromboplastin Time 24.6 Seconds (22.0-36.0); Prothrombin Time 10.6 Seconds (9.0-12.2)
[2024-07-13 07:33] LABS: Alanine Aminotransferase < 7 U/L (10-49); Albumin, Serum 3.8 gm/dL (3.5-5.0); Albumin/Globulin Ratio 1.1 (1.2-2.2); Alkaline Phosphatase 68 U/L (46-116); Anion Gap 11 (7-16); Aspartate Amino Transferase < 10 U/L (0-34); BUN/Creatinine Ratio 13 Ratio (12-20); Bilirubin,Total 0.6 mg/dL (0.3-1.2); Blood Urea Nitrogen 38 mg/dL (9-23); Calcium 10.7 mg/dL (8.3-10.6); Calcium (Corrected) 10.9 mg/dL (8.5-10.1); Carbon Dioxide 23.2 mMol/L (20.0-31.0); Chloride 104 mMol/L (98-107); Creatinine (Component) 2.9 mg/dL (0.6-1.3); Estimated Creatinine Clearance 19.1 mL/min (>60); Free T3 2.3 pg/mL (2.3-4.2); Free T4 (Free Thyroxine) 1.46 ng/dL (0.89-1.76); Globulin 3.4 gm/dL (2.3-3.5); Glucose 149 mg/dL (74-106); Magnesium 1.8 mg/dL (1.6-2.6); Osmolality,Calculated 287 (275-295); Potassium 3.5 mMol/L (3.4-5.1); Sodium 138 mMol/L (136-145); Total Protein 7.2 gm/dL (5.7-8.2); eGFR 18 See Note
[2024-07-13 07:41] LABS: Iron 255 mcg/dL (50-170); Percent Iron Saturation 100 % (20-55); Total Iron Binding Capacity 243 mcg/dL (250-425); Unsaturated Iron Binding 0 (225-295)
[2024-07-13] MEDS: PANTOPRAZOLE INJ 40 MG VIAL IV (08:50)
[2024-07-13] MEDS: DOCUSATE SOD 100 MG CAPSULE PO (08:50)
[2024-07-13] MEDS: amLODIPine BESYLATE 5 MG TABLET 10 MG PO (08:51)
[2024-07-13] MEDS: METOPROLOL TARTRATE 25 MG TABLET 100 MG PO ×2 (08:51→22:00)
--- NOTE | 2024-07-13 08:57 | PC.SS ---
Follow up note: Endoscopy pending. Pt will return home upon dc.
--- NOTE | 2024-07-13 09:45 | CHAP ---
Went in to offer rayer for patient's upcoming procedure. Patient declined.
--- NOTE | 2024-07-13 09:58 | ESPR_ITS ---
<Statement entered by Keith Barrera MD - 07/14/24 17:24> Patient was seen and examined at bedside, agree with assessment and plan on this note. - Patient's plan and care discussed with my attending, Dr. Suzi Barrera MD Internal Medicine PGY-2 Documentation for date of: 07/13/24 Subjective Subjective Interval history: Pt examined at bedside today. No acute overnight events. Pt reports she does feel a bit nauseous today, however, has not thrown up today. She is feeling a bit lethargic at this time. She is wondering when she is going to get her EGD today. Is not requesting for any pain medicines at this time. She denies having any blood with her vomit. No other complaints at this time. Exam Vital Signs Temp Pulse Resp BP Pulse Ox O2 Del Method 96.6 F L 69 19 133/51 H 98 Room Air 07/13/24 08:00 07/13/24 08:51 07/13/24 08:00 07/13/24 08:51 07/13/24 08:00 07/13/24 08:00 Narrative Exam General: AAOx3, NAD, Belarusian speaking female HEENT: Moist mucous membranes, conjunctiva clear, EOMI, PERRLA, poor dentition Cardiovascular: S1, S2, radial pulses +2 bilat, RRR Pulmonary: CTAB bilat no cough, no wheezing GI: No tenderness to light or deep palpitation, no guarding, rigidity, rebound tenderness or distension Extremities: No presence of trace or pitting edema in lower extremities bilaterally, dorsalis pedis pulses +2 bilaterally, multiple spots of rash that is flat no papules or pustules, some ulcerations erythematous with symmetric and even borders seen on arms back and chest Neuro: AAOx3, no focal motor or sensory deficits in the UE or LE bilat Psych: Good judgement, thought and behavior Objective Labs 07/13/24 06:01 07/13/24 06:01 Labs: Laboratory Results - last 24 hr 07/13/24 06:01 WBC 9.2 D RBC 3.38 L Hgb 8.5 L Hct 26.0 L MCV 77 L MCH 25.1 MCHC 32.7 RDW Std Deviation 40.8 Plt Count 195 Neut % (Auto) 75 Lymph % (Auto) 14 [place] % (Auto) 7 Eos % (Auto) 3 Baso % (Auto) 0 Neut # (Auto) 6.9 Lymph # (Auto) 1.3 [place] # (Auto) 0.7 Eos # (Auto) 0.3 Baso # (Auto) 0.0 Immature Gran # (Auto) 0.03 H Absolute Nucleated RBC 0.00 Immature Gran % 0 Nucleated RBC % 0 PT 10.6 INR 1.0 APTT 24.6 Sodium 138 Potassium 3.5 Chloride 104 Carbon Dioxide 23.2 Anion Gap 11 BUN 38 H Creatinine 2.9 H Estim Creat Clear Calc 19.1 L eGFR 18 L BUN/Creatinine Ratio 13 Glucose 149 H Calculated Osmolality 287 Calcium 10.7 H Corrected Calcium 10.9 H Magnesium 1.8 Iron 255 H TIBC 243 L Iron Saturation 100 H Unsat Iron Binding 0 L Total Bilirubin 0.6 AST < 10 ALT < 7 L Alkaline Phosphatase 68 Total Protein 7.2 Albumin 3.8 Globulin 3.4 Albumin/Globulin Ratio 1.1 L TSH 1.00 Free T4 1.46 Free T3 pg/dL 2.3 Quality Measures Quality Measures VTE prophylaxis Assessment & Plan Assessment Current Active Medications: Generic Name Dose Route Start Last Admin Trade Name Freq PRN Reason Stop Dose Admin Acetaminophen 650 mg 07/09/24 22:28 07/10/24 23:23 Acetaminophen 325 Mg Tablet PO 08/08/24 22:27 650 mg Q6H PRN Administration Pain (1-3) & Fever >101.5 Hydrocodone Bitart/Acetaminophen 1 tab 07/09/24 23:02 Hydrocodone/Apap 5/325 Tablet PO 07/14/24 23:01 Q6HR PRN PAIN SCALE 4-10(Mod-Sev Amlodipine Besylate 10 mg 07/10/24 09:00 07/13/24 08:51 Amlodipine Besylate 5 Mg Tablet PO 08/09/24 08:59 10 mg DAILY JAYRO Administration Dextrose 25 ml 07/09/24 23:00 Dextrose 50%-Water Inj 50 Ml Syringe IV 08/08/24 22:59 Q15MIN PRN BG 50-70 responsive npo pt Dextrose 50 ml 07/09/24 23:00 Dextrose 50%-Water Inj 50 Ml Syringe IV 08/08/24 22:59 Q15MIN PRN BG <50 OR BG <70 & pt unresponsive Docusate Sodium 100 mg 07/12/24 09:45 07/13/24 08:50 Docusate Sod 100 Mg Capsule PO 08/11/24 09:44 100 mg BID JAYRO Administration Protocol Glucagon 1 mg 07/09/24 23:00 Glucagon Inj 1 Mg Vial IM Q15MIN PRN BG <70, and no IV access Sodium Chloride 1,000 mls @ 60 mls/hr 07/12/24 11:31 07/13/24 03:44 Ns IV 08/11/24 11:30 60 mls/hr .[id number] JAYRO Administration Insulin Human Lispro 0 unit 07/10/24 07:30 07/13/24 07:28 Insulin Lispro (Admelog) 1 Unit/0.01 Ml Unit SC 08/09/24 07:29 Not Given AC JAYRO Protocol Metoprolol Tartrate 100 mg 07/10/24 09:00 07/13/24 08:51 Metoprolol Tartrate 25 Mg Tablet PO 08/09/24 08:59 100 mg BID JAYRO Administration Ondansetron HCl 4 mg 07/09/24 22:28 07/12/24 08:54 Ondansetron Inj 2 Mg/Ml Inj 2 Ml IV 08/08/24 22:27 4 mg Q6H PRN Administration NAUSEA OR VOMITING Protocol Pantoprazole Sodium 40 mg 07/10/24 14:45 07/13/24 08:50 Pantoprazole Inj 40 Mg Vial IV 08/09/24 14:44 40 mg QDAY JAYRO Administration Plan Assessment Brijesh is a 58-year-old Belarusian speaking female with past medical history of hypertension, type 2 diabetes on insulin, history of thyroid nodules presented to the ED on 07/09/2024 was admitted for SANTOS on CKD and hypercalcemia. #SANTOS on CKD, improving, #Hypercalcemia, improving Patient presented with BUN 64, creatinine 3.9, has had GI losses for the past couple of weeks Patient reports that she has been taking ibuprofen 600 mg 3 times a day for a couple of weeks now I believe this SANTOS is multifactorial including intrarenal and prerenal causes due to poor oral intake and kidney damage from ibuprofen Renal ultrasound does not show any stone and at this time we can rule out postrenal causes Patient's GFR 14, creatinine 3.6 as this is slightly improving with fluid Patient's corrected hypercalcemia is at 12.2 We will need to follow-up PTH to decipher if it is PTH independent or dependent hypercalcemia Considering patient's recent weight loss of 50 pounds, malignancy will need to be higher in the differential if this is PTH independent and pt has strong family cancer history Patient does endorse that she has lost 50 pounds, was on Victoza and then put on Trulicity close last month, however patient does use insulin which can predispose to weight gain and the GLP's decrease this much weight loss within a year typically Renal ultrasound shows no hydronephrosis or calculi. Baseline creatinine 1.2, GFR 52 in March 2024. Urine sodium 37.3, potassium 32, chloride 33.8, calcium 7 Urine microalbumin 255 FeNa 1.2 07/12/2024 serum creatinine continues to trend down today is 3.1, calcium normalized to 10.3, vitamin D within normal limits, ultrasound of the neck showed multiple nodules however PT was within normal range as normal response for hypercalcemia. Patient was cleared from nephrology standpoint for discharge and follow-up outpatient. However overnight patient was not able to tolerate feeding and continued to have nausea and vomiting. Given the fact that the patient has severe weight loss, anemia hemoglobin 7.7 today, strong family history of gastric cancer and 1st and 2nd degree relatives will consult GI to rule out malignancy 07/13/2024 Calcium 10.9 and Cr 2.9 Will continue to monitor and follow any nephrology recommendations Plan: ? Nephrology consulted, appreciate recommendations ? Strict intake and output, Mont[place]ca catheter ? Trend CMP #Nausea and vomiting #Iron deficiency anemia #Weight loss and failure to thrive Patient has been dealing with chronic anemia, current hemoglobin 7.7, MCV 77 BMI of 19.1, patient reported significant weight loss within the last year unintentionally, hypercalcemia, send family history of GI malignancy Peripheral blood smear shows microcytic iron deficiency anemia ferritin 137; Iron 36 Plan: ? EGD tonight ? Trend CBC ? Transfusion protocol hemoglobin below 7 ? Avoiding any NSAIDs ? SCDs ? Protonix 40 mg daily #Cirrhosis vs hepatocellular disease #Splenomegaly #Diarrhea Splenomegaly seen on previous CT CT shows significant splenomegaly Patient complains of diarrhea since the last 2 days. Was given Augmentin recently in March 2024 in ED I have high suspicion for malignancy considering patient's weight loss, anemia, splenomegaly, and cancer history including lymphoma LDH normal; ESR and CRP unremarkable Abdominal ultrasound shows cirrhosis versus hepatocellular disease, absent gallbladder, no CBD dilation Fecal WBC was negative, pending stool culture and Reported, AFP was normal, chronic hepatitis viral marker was negative Plan: ? Follow stool culture ? Follow-up serum copper, alpha antitrypsin, ceruloplasmin and antimitochondrial antibody #Type 2 insulin-dependent diabetes mellitus Basaglar 28 units at home as well as Synjardy 07/999 A1c of 7.5 Plan: ? Sliding scale insulin ? Hypoglycemic protocol in place ? Blood sugar checks with meals ? Will hold on adding patient's insulin regimen from home at home #Hypertension Patient on amlodipine 5 mg, metoprolol tartrate 100 mg twice daily, losartan?HCTZ 100/25 mg tablet Patient will likely need change of blood pressure medicines upon discharge Plan: ? Hold on resuming blood pressure medicines ? Holding ARIEL/ARB in setting of SANTOS #Thyroid nodule, 25mm CTA in March shows 25mm thyroid nodule and R large thyroid lobe TSH and free T4 unremarkable Plan: ? Ultrasound-guided FNA ? Follow-up thyroglobulin, antithyroglobulin #Back pain Chronic Patient may have some underlying malignancy component with back pain Lumbar and thoracic x-ray unremarkable at this time Plan: ? Moderate pain control #Rash DDx: Nummular Eczema, Drug Exanthem, infectious, Malignancy Has been going on for about 7 months ago Patient is originally [place] as this could possibly be due to latent infection Could be a drug exanthem related to interstitial nephritis Patient does report that this rash has been there for 7 months now and the increased ibuprofen use was going on for about 2 months so this is less likely Rash appears to be in multiple spots on the body including arm chest and back some appear to be smaller than others, erythematous plaques no papules, mild ulceration with even and symmetric borders Has been itchy before in the past Plan: ? Will recommend the patient to have skin biopsy in outpatient settings ? Follow-up IBIS ? Monitor for any changes ? Consider topical cream or antihistamines for rash #Health Maintenance Disposition: Telemetry DVT prophylaxis: SCDs GI prophylaxis: Protonix Diet: Carb low CODE STATUS: Full Patient seen and care discussed with my senior resident, Dr. Barrera, and my attending physician, Dr. Gbarielle Escobar, PGY-1 Attending Provider Attestation/Addendum I attest that I was physically present for the evaluation, physical examination, lab and imaging review of the patient with the residents. I discussed the case with the residents and agree with the findings and plans of care as documented above. Patient underwent ultrasound-guided fine-needle aspiration of thyroid nodule. Her vital signs have been stable. Lab results show stable hemoglobin at 8.5 today. Kidney function continues to improve, BUN/creatinine of 38/2.9 today. We will continue to encourage the patient to drink plenty of fluid. Her calcium has been improving but still high at 10.9 today. TSH, free T4 and T3 level are within normal limits. Gastroenterology has been following the patient with us, patient is planned for EGD. Odalys Anthony MD
--- NOTE | 2024-07-13 12:02 | ESPR_ITS ---
Documentation for date of: 07/13/24 Subjective Subjective Interval history: Ms. Chandra is a 58-year-old female from home released with past medical history of hypertension, diabetes, aortic nodules presented to the emergency department yesterday complaining of abdominal discomfort associate with nausea vomiting and loose stools. Patient goes to [facility]. She has a taken to primary care doctor who recommended ER admission. In the emergency department patient was noted to be significantly dehydrated. Patient has been taking the Trulicity, Synjardy, losartan/hydrochlorothiazide, metoprolol, Augmentin, Tessalon Perles, amlodipine Patient was also taking ibuprofen 3 tablets 3 times daily for the last 3 weeks for her back pain. Apparently she has been having decreased urinary output. Patient also has rash in the body for the last couple of weeks. In the ED blood pressure 160/80, heart rate 110, EKG showed short QTc intervals. Sodium 138, potassium 3.7, BUN 64, creatinine 3.9, GFR 13, blood sugar 127, calcium 12.9, LFTs normal, albumin 4.6 urinalysis showed glucosuria, significant pyuria. Urine sodium 37.3 abdominal ultrasound showed splenomegaly with liver cirrhosis abdominal CT scan showed liver cirrhosis and splenomegaly. No hydronephrosis. Renal ultrasound showed sized kidneys with no hydronephrosis. Patient was admitted to telemetry and nephrology consultation requested for SANTOS and hypercalemia. Patient was started on IV fluids. 07/11/2024: Patient seen and examined at bedside, resting comfortably. Denies fevers, chills, SOB, chest pain, nausea, vomiting. Hg 7.8. Sodium 140, potassium 3.6. BUN 48, creatinine 3.2, eGFR 16. Corrected calcium 11.4. UA showed creatinine 73, microalbumin 186, Na 37.3. Continue IVF. 07/12/2024: Patient seen examined at bedside, resting comfortably. Denies fever, chills, nausea, vomiting, shortness of breath. Does endorse mild chest pain, worse with inspiration, on exam pain noted to be epigastric and reproducible on palpation, patient has been constipated. Will add Colace. Sodium 139, potassium 3.3, bicarb 24.7, BUN 41, creatinine 3.1, EGFR 17. Calcium decreased to 11.0. Patient cleared for discharge from nephrology perspective, with follow-up with nephrology in 1-2 weeks. 07/13/2024: Patient seen and examined at bedside, resting comfortably. Patient undergoing GI workup, renal function is improving, BUN 38, creatinine 2.9, GFR 18. Patient's calcium is 10.9. Patient will benefit from good oral p.o. intake, gastroenterology is following. Patient also scheduled for thyroid biopsy today. Exam Vital Signs Temp Pulse Resp BP Pulse Ox O2 Del Method 96.6 F L 69 19 133/51 H 98 Room Air 07/13/24 08:00 07/13/24 08:51 07/13/24 08:00 07/13/24 08:51 07/13/24 08:00 07/13/24 08:00 Narrative Exam General: AAOx3, NAD, Greenlandic speaking female HEENT: Moist mucous membranes, conjunctiva clear, EOMI, PERRLA, poor dentition Cardiovascular: S1, S2, radial pulses +2 bilat, RRR Pulmonary: CTAB bilat no cough, no wheezing GI: No tenderness to light or deep palpitation, no guarding, rigidity, rebound tenderness or distension Extremities: No presence of trace or pitting edema in lower extremities bilaterally, dorsalis pedis pulses +2 bilaterally, multiple spots of rash that is flat no papules or pustules, some ulcerations erythematous with symmetric and even borders seen on arms back and chest Neuro: AAOx3, no focal motor or sensory deficits in the UE or LE bilat Psych: Good judgement, thought and behavior Objective Labs 07/14/24 05:05 07/14/24 05:05 Labs: Laboratory Results - last 24 hr 07/13/24 06:01 WBC 9.2 D RBC 3.38 L Hgb 8.5 L Hct 26.0 L MCV 77 L MCH 25.1 MCHC 32.7 RDW Std Deviation 40.8 Plt Count 195 Neut % (Auto) 75 Lymph % (Auto) 14 [place] % (Auto) 7 Eos % (Auto) 3 Baso % (Auto) 0 Neut # (Auto) 6.9 Lymph # (Auto) 1.3 [place] # (Auto) 0.7 Eos # (Auto) 0.3 Baso # (Auto) 0.0 Immature Gran # (Auto) 0.03 H Absolute Nucleated RBC 0.00 Immature Gran % 0 Nucleated RBC % 0 PT 10.6 INR 1.0 APTT 24.6 Sodium 138 Potassium 3.5 Chloride 104 Carbon Dioxide 23.2 Anion Gap 11 BUN 38 H Creatinine 2.9 H Estim Creat Clear Calc 19.1 L eGFR 18 L BUN/Creatinine Ratio 13 Glucose 149 H Calculated Osmolality 287 Calcium 10.7 H Corrected Calcium 10.9 H Magnesium 1.8 Iron 255 H TIBC 243 L Iron Saturation 100 H Unsat Iron Binding 0 L Total Bilirubin 0.6 AST < 10 ALT < 7 L Alkaline Phosphatase 68 Total Protein 7.2 Albumin 3.8 Globulin 3.4 Albumin/Globulin Ratio 1.1 L TSH 1.00 Free T4 1.46 Free T3 pg/dL 2.3 Quality Measures Quality Measures VTE prophylaxis Assessment & Plan Assessment Current Active Medications: Generic Name Dose Route Start Last Admin Trade Name Freq PRN Reason Stop Dose Admin Acetaminophen 650 mg 07/09/24 22:28 07/10/24 23:23 Acetaminophen 325 Mg Tablet PO 08/08/24 22:27 650 mg Q6H PRN Administration Pain (1-3) & Fever >101.5 Hydrocodone Bitart/Acetaminophen 1 tab 07/09/24 23:02 Hydrocodone/Apap 5/325 Tablet PO 07/14/24 23:01 Q6HR PRN PAIN SCALE 4-10(Mod-Sev Amlodipine Besylate 10 mg 07/10/24 09:00 07/13/24 08:51 Amlodipine Besylate 5 Mg Tablet PO 08/09/24 08:59 10 mg DAILY JAYRO Administration Dextrose 25 ml 07/09/24 23:00 Dextrose 50%-Water Inj 50 Ml Syringe IV 08/08/24 22:59 Q15MIN PRN BG 50-70 responsive npo pt Dextrose 50 ml 07/09/24 23:00 Dextrose 50%-Water Inj 50 Ml Syringe IV 08/08/24 22:59 Q15MIN PRN BG <50 OR BG <70 & pt unresponsive Docusate Sodium 100 mg 07/12/24 09:45 07/13/24 08:50 Docusate Sod 100 Mg Capsule PO 08/11/24 09:44 100 mg BID JAYRO Administration Protocol Glucagon 1 mg 07/09/24 23:00 Glucagon Inj 1 Mg Vial IM Q15MIN PRN BG <70, and no IV access Sodium Chloride 1,000 mls @ 60 mls/hr 07/12/24 11:31 07/13/24 03:44 Ns IV 08/11/24 11:30 60 mls/hr .[id number] JAYRO Administration Insulin Human Lispro 0 unit 07/10/24 07:30 07/13/24 07:28 Insulin Lispro (Admelog) 1 Unit/0.01 Ml Unit SC 08/09/24 07:29 Not Given AC JAYRO Protocol Metoprolol Tartrate 100 mg 07/10/24 09:00 07/13/24 08:51 Metoprolol Tartrate 25 Mg Tablet PO 08/09/24 08:59 100 mg BID JAYRO Administration Ondansetron HCl 4 mg 07/09/24 22:28 07/12/24 08:54 Ondansetron Inj 2 Mg/Ml Inj 2 Ml IV 08/08/24 22:27 4 mg Q6H PRN Administration NAUSEA OR VOMITING Protocol Pantoprazole Sodium 40 mg 07/10/24 14:45 07/13/24 08:50 Pantoprazole Inj 40 Mg Vial IV 08/09/24 14:44 40 mg QDAY JAYRO Administration Plan 58-year-old Greenlandic speaking female with past medical history of hypertension, type 2 diabetes on insulin, history of thyroid nodules presented to the ED on 07/09/2024 was admitted for SANTOS on CKD and hypercalcemia. #SANTOS, presrenal #Hypercalcemia SATNOS secondary to prerenal azotemia. Patient has been taking the metformin, hydrochlorothiazide, losartan, ibuprofen in the setting of nausea, vomiting and dehydration. Renal ultrasound, CT did not show any hydronephrosis. Hypercalcemia probably related to dehydration. PTH 11.3 appropriate for hypercalcemia. Patient clinically dehydrated on presentation, IVF initiated. UA shows creatinine 73, microalbumin 186, Na 37.3. Patient has improved. Can DC IV fluids, encourage oral hydration. Patient cleared for discharge from nephrology perspective with follow-up in 1-2 weeks. Patient currently undergoing GI workup, will continue to follow from nephrology perspective as covering physician. - strict I&O's - avoid nephrotoxins, including NSAIDS - monitor daily renal function and calcium levels - encourage oral hydration - Cleared for discharge from nephrology perspective - Follow-up outpatient with Dr. Bradley in 1-2 weeks #Constipation #Microcytic anemia #Splenomegaly #Diarrhea #Type 2 insulin-dependent diabetes mellitus #Hypertension #Thyroid nodule by history #Rash Management as per primary team DVT prophylaxis: SCDs GI prophylaxis: Not indicated at this time Diet: Renal CODE STATUS: Full Lines: Montes De Oca cath, PIV Thank you for allowing us to participate in the care of this patient. Plan of care discussed with attending Dr. Quintanilla. Dimitrios Hoyos PGY1 Attending Provider Attestation/Addendum Pt is seen and examined. Labs and investigations are reviewed. Agree witth assessment and plan by resident. agree with findings. Saul Quintanilla MD
[2024-07-13] MEDS: INSULIN LISPRO (AdmeLOG) 1 UNIT/0.01 ML UNIT SC (12:30)
--- NOTE | 2024-07-13 20:50 | SUR.PHASEI ---
pt received to [facility]. vss breathing even and unlabored. denies pain and nausea.
--- NOTE | 2024-07-13 20:55 | XR_ITS ---
Examination: Ultrasound-guided fine needle percutaneous aspiration thyroid nodule, right thyroid nodule. Thyroid sonography, limited Exam date and time: July 13, 2024 1112 hours INDICATIONS: Mid pole right thyroid nodule 3 cm on thyroid sonogram July 11, 2024. Technique: A timeout was completed verifying correct patient, procedure, site, positioning and special equipment if applicable. The patient was placed in supine position for the thyroid fine needle percutaneous aspiration The patient's right neck neck was prepped and draped in sterile fashion. Maximum barrier sterile technique, hand hygiene, ultrasound sterile technique. 1% lidocaine was used to anesthetize the skin and subcutaneous tissues to the patient's right thyroid nodule. Multiple fine needle aspirations were performed and multiple thyroid specimens placed in preservative according to the irm protocol. Specimens appears satisfactory. The attending radiologist was present for the entire procedure. Estimated blood loss 3 cc. The patient tolerated the procedure well and there were no complications. Impression: Successful ultrasound-guided fine-needle percutaneous aspiration thyroid nodule, right thyroid nodule.
--- NOTE | 2024-07-13 21:15 | SUR.PHASEI ---
report called to fili on tele. vss. breathing even and unlabored. fc draining to gravity. transported to room via gurney.
[2024-07-14] VITALS (8 sets, daily range): BP systolic 125–146; BP diastolic 58–88; PULSE 61–77; RESP 16–21; TEMP 36.2–37.1; O2SAT 95–97; BMI 18.8
[2024-07-14] MEDS: METOCLOPRAMIDE INJ 5 MG/ML VIAL 2 ML IVP ×2 (00:52→11:59)
[2024-07-14 06:47] LABS: Basophils % (Auto) 1 % (0-2.5); Eosinophils # (Auto) 0.3 Thou/mm3 (0.0-0.5); Eosinophils % (Auto) 5 % (0-10); Hematocrit 23.1 % (36.0-46.0); Immature Granulocytes % (Auto) 1 % (0-0); Immature Granulocytes Auto 0.03 Thou/mm3 (0.00-0.00); Lymphocytes # (Auto) 1.4 Thou/mm3 (1.0-4.8); Lymphocytes % (Auto) 22 % (10-50); Mean Corpuscular HGB Conc 32.5 g/dl (31.0-37.0); Mean Corpuscular Hemoglobin 25.2 pg (25.0-35.0); Mean Corpuscular Volume 78 fL (80-100); Monocytes # (Auto) 0.6 Thou/mm3 (0.0-0.8); Monocytes % (Auto) 9 % (0-12); Neutrophils # (Auto) 4.1 Thou/mm3 (1.8-7.7); Neutrophils % (Auto) 63 % (37-80); Nucleated Red Blood Cell % 0 /100 WBC (0); Platelet Count 186 Thou/mm3 (140-440); RDW Standard Deviation 41.8 fL (36.4-46.3); Red Blood Count 2.98 Miln/mm3 (4.00-5.20); White Blood Count 6.5 Thou/mm3 (3.6-11.0)
[2024-07-14 06:51] LABS: Hemoglobin 7.5 g/dL (12.0-16.0)
[2024-07-14 07:27] LABS: Alanine Aminotransferase < 7 U/L (10-49); Albumin, Serum 3.4 gm/dL (3.5-5.0); Alkaline Phosphatase 60 U/L (46-116); Anion Gap 10 (7-16); Aspartate Amino Transferase < 10 U/L (0-34); BUN/Creatinine Ratio 13 Ratio (12-20); Bilirubin,Total 0.5 mg/dL (0.3-1.2); Blood Urea Nitrogen 36 mg/dL (9-23); Calcium 10.3 mg/dL (8.3-10.6); Calcium (Corrected) 10.8 mg/dL (8.5-10.1); Carbon Dioxide 23.1 mMol/L (20.0-31.0); Chloride 108 mMol/L (98-107); Creatinine (Component) 2.8 mg/dL (0.6-1.3); Estimated Creatinine Clearance 19.5 mL/min (>60); Globulin 3.3 gm/dL (2.3-3.5); Glucose 137 mg/dL (74-106); Magnesium 1.5 mg/dL (1.6-2.6); Osmolality,Calculated 291 (275-295); Potassium 3.2 mMol/L (3.4-5.1); Sodium 141 mMol/L (136-145); Total Protein 6.7 gm/dL (5.7-8.2); eGFR 19 See Note
[2024-07-14] MEDS: INSULIN LISPRO (AdmeLOG) 1 UNIT/0.01 ML UNIT SC (07:31)
[2024-07-14] MEDS: METOPROLOL TARTRATE 25 MG TABLET 100 MG PO (08:18)
[2024-07-14] MEDS: Magnesium Sulfate 2 GM Ivpb 2 GM/50 ML BAG IV (08:18)
[2024-07-14] MEDS: DOCUSATE SOD 100 MG CAPSULE PO (08:19)
[2024-07-14] MEDS: PANTOPRAZOLE 40 MG TABLET PO (08:19)
[2024-07-14] MEDS: amLODIPine BESYLATE 5 MG TABLET 10 MG PO (08:19)
[2024-07-14] MEDS: POTASSIUM CHLORIDE 20 mEq TABCR 40 MEQ PO (08:35)
--- NOTE | 2024-07-14 10:46 | ESPR_ITS ---
Documentation for date of: 07/14/24 Subjective Subjective Interval history: Ms. Chandra is a 58-year-old female from home released with past medical history of hypertension, diabetes, aortic nodules presented to the emergency department yesterday complaining of abdominal discomfort associate with nausea vomiting and loose stools. Patient [facility] to [facility]. She has a taken to primary care doctor who recommended ER admission. In the emergency department patient was noted to be significantly dehydrated. Patient has been taking the Trulicity, Synjardy, losartan/hydrochlorothiazide, metoprolol, Augmentin, Tessalon Perles, amlodipine Patient was also taking ibuprofen 3 tablets 3 times daily for the last 3 weeks for her back pain. Apparently she has been having decreased urinary output. Patient also has rash in the body for the last couple of weeks. In the ED blood pressure 160/80, heart rate 110, EKG showed short QTc intervals. Sodium 138, potassium 3.7, BUN 64, creatinine 3.9, GFR 13, blood sugar 127, calcium 12.9, LFTs normal, albumin 4.6 urinalysis showed glucosuria, significant pyuria. Urine sodium 37.3 abdominal ultrasound showed splenomegaly with liver cirrhosis abdominal CT scan showed liver cirrhosis and splenomegaly. No hydronephrosis. Renal ultrasound showed sized kidneys with no hydronephrosis. Patient was admitted to telemetry and nephrology consultation requested for SANTOS and hypercalemia. Patient was started on IV fluids. 07/11/2024: Patient seen and examined at bedside, resting comfortably. Denies fevers, chills, SOB, chest pain, nausea, vomiting. Hg 7.8. Sodium 140, potassium 3.6. BUN 48, creatinine 3.2, eGFR 16. Corrected calcium 11.4. UA showed creatinine 73, microalbumin 186, Na 37.3. Continue IVF. 07/12/2024: Patient seen examined at bedside, resting comfortably. Denies fever, chills, nausea, vomiting, shortness of breath. Does endorse mild chest pain, worse with inspiration, on exam pain noted to be epigastric and reproducible on palpation, patient has been constipated. Will add Colace. Sodium 139, potassium 3.3, bicarb 24.7, BUN 41, creatinine 3.1, EGFR 17. Calcium decreased to 11.0. Patient cleared for discharge from nephrology perspective, with follow-up with nephrology in 1-2 weeks. 07/13/2024: Patient seen and examined at bedside, resting comfortably. Patient undergoing GI workup, renal function is improving, BUN 38, creatinine 2.9, GFR 18. Patient's calcium is 10.9. Patient will benefit from good oral p.o. intake, gastroenterology is following. Patient also scheduled for thyroid biopsy today. 07/14/2024: Patient seen and examined at bedside, lying comfortably in bed. Patient's renal function improving slightly, BUN 36, creatinine 2.8, GFR 19. Corrected calcium 10.8, magnesium 1.5 potassium 3.2. Magnesium and potassium replaced by primary team. Patient's renal function is stable, continue p.o. intake, maintain adequate hydration. Exam Vital Signs Temp Pulse Resp BP Pulse Ox O2 Del Method O2 Flow Rate 97.2 F 75 21 H 138/88 H 97 Room Air 3 07/14/24 07:40 07/14/24 08:19 07/14/24 07:40 07/14/24 08:19 07/14/24 07:40 07/14/24 07:40 07/13/24 20:40 Narrative Exam General: AAOx3, NAD, Syriac speaking female HEENT: Moist mucous membranes, conjunctiva clear, EOMI, PERRLA, poor dentition Cardiovascular: S1, S2, radial pulses +2 bilat, RRR Pulmonary: CTAB bilat no cough, no wheezing GI: No tenderness to light or deep palpitation, no guarding, rigidity, rebound tenderness or distension Extremities: No presence of trace or pitting edema in lower extremities bilaterally, dorsalis pedis pulses +2 bilaterally, multiple spots of rash that is flat no papules or pustules, some ulcerations erythematous with symmetric and even borders seen on arms back and chest Neuro: AAOx3, no focal motor or sensory deficits in the UE or LE bilat Psych: Good judgement, thought and behavior Objective Labs 07/14/24 05:05 07/14/24 05:05 Labs: Laboratory Results - last 24 hr 07/14/24 05:05 WBC 6.5 RBC 2.98 L Hgb 7.5 L Hct 23.1 L MCV 78 L MCH 25.2 MCHC 32.5 RDW Std Deviation 41.8 Plt Count 186 Neut % (Auto) 63 Lymph % (Auto) 22 [place] % (Auto) 9 Eos % (Auto) 5 Baso % (Auto) 1 Neut # (Auto) 4.1 Lymph # (Auto) 1.4 [place] # (Auto) 0.6 Eos # (Auto) 0.3 Baso # (Auto) 0.0 Immature Gran # (Auto) 0.03 H Absolute Nucleated RBC 0.00 Immature Gran % 1 H Nucleated RBC % 0 Sodium 141 Potassium 3.2 L Chloride 108 H Carbon Dioxide 23.1 Anion Gap 10 BUN 36 H Creatinine 2.8 H Estim Creat Clear Calc 19.5 L eGFR 19 L BUN/Creatinine Ratio 13 Glucose 137 H Calculated Osmolality 291 Calcium 10.3 Corrected Calcium 10.8 H Magnesium 1.5 L Total Bilirubin 0.5 AST < 10 ALT < 7 L Alkaline Phosphatase 60 Total Protein 6.7 Albumin 3.4 L Globulin 3.3 Albumin/Globulin Ratio 1.0 L Quality Measures Quality Measures VTE prophylaxis Assessment & Plan Assessment Current Active Medications: Generic Name Dose Route Start Last Admin Trade Name Freq PRN Reason Stop Dose Admin Acetaminophen 650 mg 07/09/24 22:28 07/10/24 23:23 Acetaminophen 325 Mg Tablet PO 08/08/24 22:27 650 mg Q6H PRN Administration Pain (1-3) & Fever >101.5 Hydrocodone Bitart/Acetaminophen 1 tab 07/09/24 23:02 Hydrocodone/Apap 5/325 Tablet PO 07/14/24 23:01 Q6HR PRN PAIN SCALE 4-10(Mod-Sev Amlodipine Besylate 10 mg 07/10/24 09:00 07/14/24 08:19 Amlodipine Besylate 5 Mg Tablet PO 08/09/24 08:59 10 mg DAILY JAYRO Administration Dextrose 25 ml 07/09/24 23:00 Dextrose 50%-Water Inj 50 Ml Syringe IV 08/08/24 22:59 Q15MIN PRN BG 50-70 responsive npo pt Dextrose 50 ml 07/09/24 23:00 Dextrose 50%-Water Inj 50 Ml Syringe IV 08/08/24 22:59 Q15MIN PRN BG <50 OR BG <70 & pt unresponsive Docusate Sodium 100 mg 07/12/24 09:45 07/14/24 08:19 Docusate Sod 100 Mg Capsule PO 08/11/24 09:44 100 mg BID JAYRO Administration Protocol Glucagon 1 mg 07/09/24 23:00 Glucagon Inj 1 Mg Vial IM Q15MIN PRN BG <70, and no IV access Sodium Chloride 1,000 mls @ 60 mls/hr 07/12/24 11:31 07/13/24 22:01 Ns IV 08/11/24 11:30 60 mls/hr .[id number] JAYRO Administration Insulin Human Lispro 0 unit 07/10/24 07:30 07/14/24 07:31 Insulin Lispro (Admelog) 1 Unit/0.01 Ml Unit SC 08/09/24 07:29 1 unit AC JAYRO Administration Protocol Metoclopramide HCl 5 mg 07/14/24 00:00 07/14/24 05:35 Metoclopramide Inj 5 Mg/Ml Vial 2 Ml IVP 08/13/24 00:00 Not Given Q6HR JAYRO Protocol Metoprolol Tartrate 100 mg 07/10/24 09:00 07/14/24 08:18 Metoprolol Tartrate 25 Mg Tablet PO 08/09/24 08:59 100 mg BID JAYRO Administration Ondansetron HCl 4 mg 07/09/24 22:28 07/12/24 08:54 Ondansetron Inj 2 Mg/Ml Inj 2 Ml IV 08/08/24 22:27 4 mg Q6H PRN Administration NAUSEA OR VOMITING Protocol Pantoprazole Sodium 40 mg 07/14/24 09:00 07/14/24 08:19 Pantoprazole 40 Mg Tablet PO 08/13/24 08:59 40 mg QDAY JAYRO Administration Plan 58-year-old Syriac speaking female with past medical history of hypertension, type 2 diabetes on insulin, history of thyroid nodules presented to the ED on 07/09/2024 was admitted for SANTOS on CKD and hypercalcemia. #SANTOS, presrenal #Hypercalcemia SANTOS secondary to prerenal azotemia. Patient has been taking the metformin, hydrochlorothiazide, losartan, ibuprofen in the setting of nausea, vomiting and dehydration. Renal ultrasound, CT did not show any hydronephrosis. Hypercalcemia probably related to dehydration. PTH 11.3 appropriate for hypercalcemia. Patient clinically dehydrated on presentation, IVF initiated. UA shows creatinine 73, microalbumin 186, Na 37.3. Patient has improved. Can DC IV fluids, encourage oral hydration. Patient cleared for discharge from nephrology perspective with follow-up in 1-2 weeks. - strict I&O's - avoid nephrotoxins, including NSAIDS - monitor daily renal function and calcium levels - encourage oral hydration - Cleared for discharge from nephrology perspective - Follow-up outpatient with Dr. Bradley in 1-2 weeks #Constipation #Microcytic anemia #Splenomegaly #Diarrhea #Type 2 insulin-dependent diabetes mellitus #Hypertension #Thyroid nodule by history #Rash Management as per primary team DVT prophylaxis: SCDs GI prophylaxis: Not indicated at this time Diet: Renal CODE STATUS: Full Lines: [place] cath, PIV Thank you for allowing us to participate in the care of this patient. Plan of care discussed with attending Dr. Quintanilla. Dimitrios Hoyos PGY1 Attending Provider Attestation/Addendum Pt is seen and examined. Labs and investigations are reviewed. Agree witth assessment and plan by resident. agree with findings. Saul Quintanilla MD
--- NOTE | 2024-07-14 14:30 | ESDS_ITS ---
<Statement entered by Keith Barrera MD - 07/14/24 16:06> Patient was seen and examined at bedside, patient was instructed to follow-up in outpatient settings regarding her hypercalcemia and SANTOS. Patient was informed that EGD was clear however she will need also to do the colonoscopy and to do age-appropriate cancer screening rule out any medical history. - Patient's plan and care discussed with my attending, Dr. Suzi Barrera MD Internal Medicine PGY-2 Planned Discharge Date 07/14/24 DS: Providers Provider Date of admission: 07/09/24 22:28 Primary care physician: Hernandez Marquez PA-C Admitting Provider: Sylvain Richardson MD Attending Provider on Admission: Odalys Anthony MD Consults: 07/09/24 22:39 Consult to Nephrology Urgent Comment: SANTOS Consulting Provider: Kushal Bradley 07/10/24 06:53 Referral Registered Dietitian Routine Comment: poor appetite, diarreah, nausea and vomiting 07/10/24 17:26 Referral Wound Care Routine Comment: rashes 07/12/24 11:30 Consult to Gastroenterology Urgent Comment: N/V weight loss, Anemia, R/O malignancy Consulting Provider: Susan Clemons Attending Provider on DC: Odalys Anthony MD Discharging Provider: Odalys Anthony MD DS: Diagnosis Problem List Completed Was Problem List Reviewed/Reconciled?: Yes Hospital Course Hospital Course Hospital course: Brijesh is a 58-year-old speaking female with past medical history of hypertension, type 2 diabetes on insulin, history of thyroid nodules who was admitted to [facility] on July 09, 2024 for SANTOS on CKD and hypercalcemia. On presentation, patient had a blood pressure 152/87, heart rate 110, respiratory rate 18, temp 97.7, O2 sat 100 on room air. ED labs showed hemoglobin 9.8, he matocrit 30.1, MCV 77, BUN 64, creatinine 3.9, GFR 13, glucose 127, corrected calcium 12.9, total protein 8.7, globulin 4.1. Renal ultrasound had showed no hydronephrosis or renal calculi, EKG showed sinus rhythm with Short QT intervals. QTc [address]-T changes. Patient was given 1 L LR bolus, Tylenol 650 x 1, magnesium 2 g x 1 and started on maintenance fluid LR 100 cc/hr. medicine was consulted and patient was admitted to floors. Part of patient's history included about 50 pound unintentional weight loss within the past year, however she is also been on GLP's however at the same time she is also been on insulin as well. While on the floors, patient was seen by nephrology who had recommended fluids to address patient's SANTOS and hypercalcemia. Patient was also given 2 doses of calcitonin based on body weight which had improved calcium to 10.9. PTH came up for the patient unremarkable likely indicating PTH independent cause of hypercalcemia. At this point it could have been related to SANTOS and medicines including thiazide which she was on, however malignancy was high on the differential for the patient. For further workup, patient had additional imaging studies including CT abdomen pelvis, and thyroid ultrasound. With abdomen pelvis CT, splenomegaly was visualized and possible cirrhosis versus hepatocellular disease. Patient also began to have nausea in which GI was consulted. A number of tests were ordered for the patient including AFP which was negative, however we also did additional imaging studies including lumbar and thoracic x-rays which showed degenerative changes. With patient's kidney function and hypercalcemia improving, patient was cleared from nephrology. EGD was also done for patient because patient had episodes of vomiting which had showed esophagitis and gastritis. Thyroid ultrasound biopsy was done because patient had thyroid nodules and an enlarged right thyroid lobe, pending pathology results. Patient will be continued to follow-up in outpatient clinic as there is still high suspicion for malignancy, will follow-up with other pending lab results and testings. Patient will also be referred outpatient for colonoscopy as this has still not been ruled out for cause of malignancy and patient also has anemia. She also has a possible rash in some part of her upper extremity that she will need to follow-up outpatient for. Discharge Instructions: Follow up with your PCP within one week from discharge Use medications as prescribed Avoid Ibprofen, Aleve or any NSAID You were found to have significantly high levels of Calciun and Kidney Damage, you have to follow up closely with a Kidney doctor In case of an emergency please return to the ED as soon as possible We stopped some of your meds losartan/hydroclorothiazide You have to follow up with a virtual assistant within one or two weeks from discharge If you do not have a primary care physicain you [place] [id number]. Phone number [phone] Problem List #SANTOS on CKD #Hypercalcemia #Nausea and vomiting #Iron deficiency anemia #Weight loss #Failure to thrive #Cirrhosis vs hepatocellular disease #Splenomegaly #Diarrhea #Type 2 insulin-dependent diabetes mellitus #Hypertension #Thyroid nodule, 25mm #Back pain #Rash Discharge summary was reviewed with my attending Dr. Anthoyn and my senior resident Dr. Holly Escobar, PGY-1 Time Spent with Patient Time attestation: Total time spent providing and/or coordinating discharge services: Time spent: Less than 30 minutes Exam Vital Signs Temp Pulse Resp BP Pulse Ox O2 Del Method O2 Flow Rate 98.7 F 67 20 137/58 H 95 Room Air 3 07/14/24 12:00 07/14/24 12:00 07/14/24 12:00 07/14/24 12:00 07/14/24 12:00 07/14/24 12:00 07/13/24 20:40 Narrative Exam General: AAOx3, NAD, Greek speaking female HEENT: Moist mucous membranes, conjunctiva clear, EOMI, PERRLA, poor dentition Cardiovascular: S1, S2, radial pulses +2 bilat, RRR Pulmonary: CTAB bilat no cough, no wheezing GI: No tenderness to light or deep palpitation, no guarding, rigidity, rebound tenderness or distension Extremities: No presence of trace or pitting edema in lower extremities bilaterally, dorsalis pedis pulses +2 bilaterally, multiple spots of rash that is flat no papules or pustules, some ulcerations erythematous with symmetric and even borders seen on arms back and chest Neuro: AAOx3, no focal motor or sensory deficits in the UE or LE bilat Psych: Good judgement, thought and behavior Discharge Plan Plan Patient Disposition: HOME (Self Care) Patient condition on transfer: Stable Care Plan Goals: Discharge Instructions: Follow up with your PCP within one week from discharge Use medications as prescribed Avoid Ibprofen, Aleve or any NSAID You were found to have significantly high levels of Calciun and Kidney Damage, you have to follow up closely with a Kidney doctor In case of an emergency please return to the ED as soon as possible We stopped some of your meds losartan/hydroclorothiazide You have to follow up with a virtual assistant within one or two weeks from discharge If you do not have a primary care physicain [place] [address]. Phone number [phone] Prescriptions/Referrals Prescriptions/Med Rec: New pantoprazole 40 mg Tablet,Delayed Release (Dr/Ec) 40 mg PO QDAY 10 Days Qty: 10 0RF metoclopramide HCl 5 mg tablet 5 mg PO Q8H PRN (Reason: nausea and vomiting) 5 Days Qty: 20 0RF Continued amlodipine 10 mg tablet 10 mg PO DAILY Patient Comments: TAKE 1 TABLET BY MOUTH EVERY DAY FOR 90 DAYS metoprolol tartrate 100 mg tablet 100 mg PO BID insulin glargine [Basaglar KwikPen U-100 Insulin] 100 unit/mL (3 mL) insulin pen 28 unit subcut QAM Trulicity 0.75 mg/0.5 mL pen injector 0.75 mg SUBCUT .weekly Patient Comments: INJECT 0.75 MG SUBCUTANEOUS ONCE A WEEK Rx Instructions: Discontinued benzonatate 100 mg capsule 100 mg PO TID PRN (Reason: cough) Qty: 10 0RF amoxicillin-pot clavulanate 875-125 mg tablet 1 tab PO BID Qty: 20 0RF losartan-hydrochlorothiazide 100-25 mg tablet 1 tab PO DAILY Patient Comments: TAKE 1 TABLET BY MOUTH EVERY DAY Synjardy 5-1,000 mg tablet Patient Comments: TAKE 1 TABLET BY MOUTH TWICE A DAY WITH MEALS FOR 30 DAYS Referrals: Hernandez Marquez PA-C [Primary Care Provider] - Patient/Caregiver Discharge Instructions Discharge Activity: activity as tolerated Education Materials: Biopsy Thyroid Fine Needle Dc, Acute Kidney Failure Dc Print Language: Portuguese Stand Alone Forms: [employer] Award Info., Patient Portal Info Letter Discharge Order Discharge Orders: Discharge (Routine); Ordered 07/14/24 Ordered By: Keith Barrera Quality Discharge Quality Measures VTE prophylaxis (SCDs) Attestestation Attestation I attest that I was physically present for the evaluation, physical examination, lab and imaging review of the patient with the residents. I discussed the case with the residents and agree with the findings and plans of care as documented above. Odalys Anthony MD
--- NOTE | 2024-07-14 21:18 | PD.IMPROG ---
Documentation for date of: 07/14/24 Subjective Subjective Interval history: Late entry for the note Case discussed with internal medicine team okay to discharge the patient to be followed by the PCP Exam Vital Signs Temp Pulse Resp BP Pulse Ox O2 Del Method O2 Flow Rate 98.4 F 77 18 139/60 H 95 Room Air 97 07/14/24 16:43 07/14/24 16:43 07/14/24 16:43 07/14/24 16:43 07/14/24 12:00 07/14/24 16:43 07/14/24 16:43 Objective Labs 07/14/24 05:05 07/14/24 05:05 Labs: Laboratory Results - last 24 hr 07/14/24 05:05 WBC 6.5 RBC 2.98 L Hgb 7.5 L Hct 23.1 L MCV 78 L MCH 25.2 MCHC 32.5 RDW Std Deviation 41.8 Plt Count 186 Neut % (Auto) 63 Lymph % (Auto) 22 [place] % (Auto) 9 Eos % (Auto) 5 Baso % (Auto) 1 Neut # (Auto) 4.1 Lymph # (Auto) 1.4 [place] # (Auto) 0.6 Eos # (Auto) 0.3 Baso # (Auto) 0.0 Immature Gran # (Auto) 0.03 H Absolute Nucleated RBC 0.00 Immature Gran % 1 H Nucleated RBC % 0 Sodium 141 Potassium 3.2 L Chloride 108 H Carbon Dioxide 23.1 Anion Gap 10 BUN 36 H Creatinine 2.8 H Estim Creat Clear Calc 19.5 L eGFR 19 L BUN/Creatinine Ratio 13 Glucose 137 H Calculated Osmolality 291 Calcium 10.3 Corrected Calcium 10.8 H Magnesium 1.5 L Total Bilirubin 0.5 AST < 10 ALT < 7 L Alkaline Phosphatase 60 Total Protein 6.7 Albumin 3.4 L Globulin 3.3 Albumin/Globulin Ratio 1.0 L Impressions Impression: Gastritis esophagitis Okay to discharge patient home to be followed by PCP Assessment & Plan A&P Narrative # Persistent nausea vomiting # Abnormal weight loss Plan N.p.o. Consent obtained for fiberoptic esophagogastroduodenoscopy with possible biopsy possible therapeutic intervention under intravenous moderate sedation scheduled for tomorrow # Thyroid nodules particular right lobe of the thyroid Recommend ultrasound-guided biopsy of the thyroid nodule prior to discharge Free T4 TSH Free T3 Thyroglobulin antibody panel # Cirrhotic liver disease as per imaging studies etiology uncertain Complete workup ordered Other medical problems include Diabetes mellitus type 1 Essential hypertension Thank you very much for the opportunity to participate in the care of this patient Time Spent With Patient Time: Total time spent is greater than 50% in coordination of care (as documented) at patient's floor/unit and/or counseling patient:
[2024-07-18 07:02] LABS: Calprotectin, Stool* 7 mcg/g
[2024-07-20 13:51] LABS: Thyroglobulin Antibodies <1 IU/mL (< OR = 1)
[2024-07-21 06:35] LABS: ANA Screen, IFA NEGATIVE (NEGATIVE); Alpha-1-Antitrypsin* 193 mg/dL (83-199); Ceruloplasmin* 32 mg/dL (14-48); Copper* 238 mcg/dL (70-175); Mitochondrial Ab NEGATIVE (NEGATIVE); Thyroglobulin 7.4 ng/mL
== END 2024-07-14 16:10 | disposition home or self-care (01) | DRG 469 ==
LOC: SERX 21:01 → SERHOLD 22:57 → S2NX 07-10 05:53
PROVIDERS: Nurse Practitioner Family; Specialist; Student in an Organized Health Care Education/Training Program; Admitting Provider Student in an Organized Health Care Education/Training Program; Emergency Provider Emergency Medicine; PCP Physician Assistant; Visit Provider Student in an Organized Health Care Education/Training Program
PROC: (CPT 43239; principal; 2024-07-13 19:00)
DX: N17.9 Acute kidney failure, unspecified (principal); E86.0 Dehydration; N18.9 Chronic kidney disease, unspecified; D50.9 Iron deficiency anemia, unspecified; E83.52 Hypercalcemia; R19.7 Diarrhea, unspecified; I12.9 Hypertensive chronic kidney disease with stage 1 through stage 4 chronic kidney disease, or unspecified chronic kidney disease; E04.1 Nontoxic single thyroid nodule; K74.60 Unspecified cirrhosis of liver; R16.1 Splenomegaly, not elsewhere classified; R21 Rash and other nonspecific skin eruption; M54.9 Dorsalgia, unspecified; E78.5 Hyperlipidemia, unspecified; R63.4 Abnormal weight loss; K59.00 Constipation, unspecified; E10.22 Type 1 diabetes mellitus with diabetic chronic kidney disease; K20.90 Esophagitis, unspecified without bleeding; K29.70 Gastritis, unspecified, without bleeding; R62.7 Adult failure to thrive; Z68.1 Body mass index [BMI] 19.9 or less, adult; E04.2 Nontoxic multinodular goiter; Z85.72 Personal history of non-Hodgkin lymphomas; Z79.4 Long term (current) use of insulin; Z79.899 Other long term (current) drug therapy; D63.1 Anemia in chronic kidney disease
CPT/HCPCS: 36415; 72072; 72100; 74176; 76536; 76700; 76770; 80053; 80061; 80069; 81001; 82043; 82103; 82105; 82306; 82340; 82390; 82436; 82525; 82570; 82728; 83036; 83540; 83550; 83615; 83690; 83735; 83970; 83993; 84100; 84133; 84300; 84432; 84439; 84443; 84481; 85025; 85046; 85610; 85652; 85730; 86038; 86140; 86255; 86705; 86706; 86800; 86803; 87015; 87045; 87046; 87086; 87205; 87340; 87899; 93005; 96361; 96365; 96366; 96372; 96375; 99285; A4649; J0630; J1200; J1644; J1815; J2250; J2405; J2470; J2765; J3010; J3475; J3480; J7030; J7050; J7120; Q0138; Q4081; A9270

== ENCOUNTER 2024-08-04 08:57 | Outpatient (AMB) | payer MEDICAID, SELFPAY ==
--- NOTE | 2024-08-04 09:15 | PD.RESCLINIC ---
Vital Signs 08/04/24 09:16 Weight 59.874 kg Weight Measurement Method Standing Scale BP 160/64 H Blood Pressure Source Automatic Cuff Blood Pressure Location Right Upper Arm Position Sitting Respiration 18 Pulse 75 Pulse Source Monitor Temp 97.8 F Temp Source Temporal Artery Scan Pulse Oximetry (%) 99 Oxygen Delivery Method Room Air Allergies/Meds Allergies & Medications Allergies No Known Allergies Allergy (Verified 08/04/24 09:16) Medication Reconciliation amlodipine 10 mg tablet 10 mg PO DAILY 07/10/24 [History Confirmed 08/04/24] dulaglutide 0.75 mg/0.5 mL subcutaneous pen injector (Trulicity) 0.75 mg subcut .weekly 07/10/24 [History Confirmed 08/04/24] insulin glargine 100 unit/mL (3 mL) subcutaneous pen (Basaglar KwikPen U-100 Insulin) 28 unit subcut QAM 07/10/24 [History Confirmed 08/04/24] metoprolol tartrate 100 mg tablet 100 mg PO BID 07/10/24 [History Confirmed 08/04/24] cyclobenzaprine 5 mg tablet 5 mg PO TID PRN muscle spasm #90 tabs 08/04/24 [Rx] triamcinolone acetonide 0.5 % topical cream 1 applic topical BID #15 grams 08/04/24 [Rx] MA Intake Visit Data Collection New Patient or Established: Established Patient (seen at [facility] within 3 years) Seen by Clinical Staff ONLY (RN/MA): No Pain Present Currently: No Pain scale:: 0 Pain Scale Used: [place]/[employer] Required: No PCP or OBGYN visit in last 3 months: No Hx Now: No Do You Feel Safe at Home: Yes Authorities Contacted: N/A Smoking Status Smoking Status: Never smoker Immunization / Flu Flu Vaccine in the Last 12 Months: No Flu Vaccine Exclusion Criteria: No Exclusion Criteria Past Medical History Past Medical History NEUROLOGIC: Negative Seizures CARDIAC: Positive Cardiac Disorders and Hypertension; Negative Congestive Heart Failure RESPIRATORY: Negative Chronic Obstructive Pulmonary Disease (COPD) or Asthma GENITOURINARY: Negative Renal Disease ENDOCRINE: Positive Diabetes Mellitus Type 2; Negative Diabetes Mellitus Type 1 HEMATOLOGIC: Positive Anemia; Negative Sickle Cell Disease OTHER HISTORY: Negative Blood Transfusions or Anesthesia Reactions Social History SMOKING STATUS: Smoking status: Never smoker ALCOHOL: Alcohol Intake: Never HOUSING: Housing: House LIVES WITH: Lives With: Family Patient Portal Questionaires Social History Living Situation History Housing: House Housing Other:: Pt lives with family Tobacco History Smoking Status: Never smoker Alcohol History Alcohol Intake: Never Domestic Abuse History Do You Feel Safe at Home: Yes Review of Systems Report any current symptoms Only answer those that you have currently: Past Medical History Past Medical History Have you ever been diagnosed with any of the following: Neurological Problems Seizures: No Cardiology Problems Congestive Heart Failure: No Hypertension: Yes Respiratory Problems Chronic Obstructive Pulmonary Disease (COPD): No Asthma: No Genital/Urinary Problems Renal Disease: No Endocrine Problems Diabetes Mellitus Type 1: No Diabetes Mellitus Type 2: Yes Blood Problems Anemia: Yes Sickle Cell Disease: No Other Problems Blood Transfusions: No Anesthesia Reactions: No History of Present Illness HPI Narrative Brijesh is a 58 y/o female comes in for hospital follow-up after being admitted for SANTOS and was found to have hypercalcemia in addition to multiple other problems. Patient reports that she is doing well, and has been putting on weight. She says that she is being referred to GI for colonoscopy. She also said that she seen her kidney doctor, Dr. Bradley, who had noticed that the patient had H. pylori on EGD and said that she will try to send antibiotics, however is pending authorization. She is going to continue to see the kidney doctor as well. The patient had also asked about her rash in which she had said if she is going to get a biopsy done. She denies any history of copper disease in her family. She is also requesting some pain medicine for her back. No other complaints this time. Review of Systems Review of Systems Narrative Review of Systems: Constitutional: No fever, chills, fatigue, weakness, weight loss HEENT: No eye pain, vision loss, ear pain, hearing loss, dysphagia, Cardiovascular: No chest pain, palpitations, edema, pain with walking Respiratory: No cough, shortness of breath, wheezing GI: No NVD, abdominal pain, constipation, blood in stool, loss of appetite, heartburn Extremities: No presence of pitting edema MSK: No back pain, joint pain, joint swelling Neuro: No dizziness, numbness, weakness, headaches, seizures, tremors Psych: No anxiety, depression Objective/Exam Narrative Physical exam: General: AAOx3, NAD, HEENT: Moist mucous membranes, conjunctiva clear, EOMI, PERRLA, Cardiovascular: S1, S2, radial pulses +2 bilat, RRR Pulmonary: CTAB bilat no cough, no wheezing GI: No tenderness to light or deep palpitation, no guarding, rigidity, rebound tenderness or distension Extremities: No presence of trace or pitting edema in lower extremities bilaterally, dorsalis pedis pulses +2 bilaterally Back: Some pain to palitation in lumbar spine Skin: Rash near R clavicular region, flat, irregular borders, additional oval rash present along lumbar spine with no ulceration Neuro: AAOx3, no focal motor or sensory deficits in the UE or LE bilat Psych: Good judgement, thought and behavior Assessment & Plan Diagnosis / Problem List (1) Hypercalcemia: Status: Acute Assessment & Plan: Kidney doctor is not recommending additional medicines at this time Plan: Continue to follow up with Kidney doctor Follow-up with complete metabolic panel (2) Iron deficiency anemia: Status: Acute Assessment & Plan: Could be related to nutrition or GI issue Plan: Colonscopy Trend with CBC (3) Weight loss: Status: Acute Assessment & Plan: Pt has had 40 lbs weight loss recently that was intentional Pt was worked up with EGD, however has not had colonoscopy Plan: Colonscopy with GI referral (4) H. pylori infection: Status: Acute Assessment & Plan: Seen on EGD biopsy Pt said she was getting triple pump authorized by her other doctor Plan: Will consider sending Quad therapy if pt does not receive triple therapy with her current physician (5) Excessive copper intake: Status: Acute Assessment & Plan: Elevated copper levels in previous labs, however ceruoplasmin was normal Suspicion for jeremy's disease, however ceruoplasmin is normal Plan: Repeat copper level Repeat ceruoplasmin Urine copper random (6) Chronic back pain: Status: Acute Assessment & Plan: Chronic and related to Degenerative disc disease Plan: Multimodal analgesia including Tylenol and Flexiril 10 mg TID PRN (7) Rash: Status: Acute Assessment & Plan: Does not seem to be ulcerated, sometimes itches Plan: Kenalog 0.5 topical cream apply to affected area Office Procedures [facility] Level of Care Nursing/Assessment Patient Status: Established Patient Nursing Assessment/Reassessment: Medication Reconciliation, Update PMH in EMR and Vital Signs Coordination of Care: Complex Care and Chronic Disease 1-5, Consent,records obtained, informed consent, Education Simp Pt/Fam and Staff clarify orders Established Patient Charge Established Patient Point Assignment: 85 Established Patient Point Charge: EP Level 3 (80-115)
[2024-08-04 09:16] VITALS: BP 160/64; PULSE 75; RESP 18; TEMP 36.6; O2SAT 99
== END 2024-08-04 10:22 | disposition home or self-care (01) ==
LOC: HODAHC 08:57
PROVIDERS: Supervising Provider Internal Medicine
DX: E83.52 Hypercalcemia (principal); D50.9 Iron deficiency anemia, unspecified; R63.4 Abnormal weight loss; B96.81 Helicobacter pylori [H. pylori] as the cause of diseases classified elsewhere; E83.00 Disorder of copper metabolism, unspecified; R21 Rash and other nonspecific skin eruption; G89.29 Other chronic pain; M54.9 Dorsalgia, unspecified
CPT/HCPCS: 99213; G0463